=== PATIENT | male | born 1955 | race Caucasian/White ===

== ENCOUNTER → 2017-11-12 12:37 | Outpatient (CLI) | payer MEDICARE, BC, SELFPAY ==
--- NOTE | 2017-11-12 12:50 | XR_ITS ---
XR chest 2V HISTORY: ITS.REASON: CHEST WALL PAIN ORDERING PHYSICIAN: Josefa Callaway PATIENT AGE: 62 years FINDINGS: The cardiomediastinal silhouette and pulmonary vascularity are within normal limits. There is a calcified granuloma in the right midlung. Just superior to this is a 10 mm noncalcified nodule. There are no previous studies available to determine at this is stable. 14 mm nodular opacity is present in the left infrahilar region. No lobar consolidation or collapse. No acute bony anomalies. Bridging osteophytes in the midthoracic spine. IMPRESSION: 1. No acute finding. 2. Right midlung and left infrahilar nodular densities. No previous exams for comparison to determine these are new or stable. Follow-up is recommended. Chest CT may be of further evaluation for the pulmonary nodules.
--- NOTE | 2017-11-12 12:50 | XR_ITS ---
XR ribs LT 2V HISTORY: ITS.REASON: CHEST WALL PAIN ORDERING PHYSICIAN: Josefa Callaway PATIENT AGE: 62 years FINDINGS: No fracture or dislocation. No lytic or blastic change. IMPRESSION: Negative left ribs
== END ==
PROVIDERS: PCP Family Medicine; Visit Provider Nurse Practitioner Family
DX: R07.89 Other chest pain (principal)
CPT/HCPCS: 71046; 71100

== ENCOUNTER → 2017-11-22 12:56 | Outpatient (CLI) | payer MEDICARE, BC, SELFPAY ==
[2017-11-22 14:46] LABS: Blood Urea Nitrogen 14 mg/dL (7-18); Estimated Glomerular Filt Rate 68 ml/min (>60); GFR (African American) 82 ML/MIN (>60)
== END ==
PROVIDERS: Visit Provider Nurse Practitioner Family
DX: R19.8 Other specified symptoms and signs involving the digestive system and abdomen (principal)
CPT/HCPCS: 36415; 82565; 84520

== ENCOUNTER → 2017-11-23 09:40 | Outpatient (CLI) | payer MEDICARE, BC, SELFPAY ==
--- NOTE | 2017-11-23 09:48 | CT_ITS ---
CT chest wo con Ordering Physician: Stu Mcnamara MD Patient Age: 62 years: Male HISTORY: ITS.REASON: LUNG NODULES TECHNIQUE: Helical CT scanning performed through the abdomen and pelvis with no oral nor IV contrast. Sagittal coronal and axial reconstructions on CT workstation. There is reduction technique utilizing routine CT software exposure control. COMPARISON : Chest film 2 view 11/12/2017 FINDINGS No suspicious or worrisome appearing lung mass or nodule. RIGHT LUNG. Most evident is the prominent nearly 8 mm mm densely calcified granuloma at right upper lobe just superior to the minor fissure. . Just lateral to this calcified granuloma on axial image 44 tiny there is some minimal stippled density including a 3.6 mm vaguely evident nodular density. By far most likely benign feature and suspect may reflect associated developing granulomatous disease nodule but has not calcified Also note linear density extending lateral from calcified granuloma on axial image 43. This may reflect an area of scarring or a slightly generous pulmonary vessel in this region. This appears to be nonspecific benign features but but may benefit from a follow-up CT chest 12 months with contrast if desire to confirm stability of the latter minor observations exclude any abnormal vessel here LEFT LUNG. Small less than 4 mm calcified granuloma posterior LLL axial slice 56. Tiny 5 mm low-density area seen anterior to the left anthony on axial slice 37 however appears to be merely a linear area of scarring on coronal image 49, sagittal 64. Neck and not of concern. No infrahilar mass evident.- I suspect density questioned on plain film is related to vessels at left infrahilar region.. MEDIASTINUM. No significant mediastinal mass or adenopathy. A row of small Calcified nodes right pretracheal region reflects old granulomatous is disease. Largest single node 12 mm x 8 mm with stippled calcifications here reflects old benign granulomatous disease Small calcified right hilar nodes reflecting the same Heart normal size with no pericardial effusion. A few tiny nodes AP window and significant but no supraclavicular adenopathy nor axillary adenopathy of significance. BONE At the anterior fifth rib there 2 sclerotic foci .. These measure 11 mm & 9 mm . These small sclerotic focus and follow the medial cortex.. (Suspect one of these scattered for the density seen on recent lateral CXR) There is also a small less than 5 mm sclerotic focus at the anterior second rib. These sclerotic osseous foci may reflect scattered bone islands but could also benefit from a follow-up... Also small 5 mm area sclerotic focus the neck of the glenoid & Small 6 mm nonspecific sclerotic focus beneath superior endplate T9 vertebra noted Otherwise spine demonstrates prominent thick marginal osteophytes is seen throughout the mid T-spine to the lumbar spine. Vertebral bodies appear intact. . IMPRESSION 1. No suspicious or worrisome mass or lung nodule. 2. Benign-appearing lung densities bilaterally: .... Most notable 8 mm densely calcified benign granuloma right midlung. ... Tiny nonspecific 3.6 nodule just lateral to this likely reflect developing granulomatous nodule features as well .... Minimal linear density just lateral to calcified granuloma also noted likely scarring or generous vessel These latter features are most certainly benign, but might considera follow-up CT chest with contrast one year if desire to fully confirm stable of the smaller noncalcified densities 3.. Scattered small sclerotic foci .-More Likely scattered small benign bone islands, but noted *
--- NOTE | 2017-11-23 09:48 | CT_ITS ---
CT abdomen wo con Ordering Physician: Stu Mcnamara MD Patient Age: 62 years: Male HISTORY: ITS.REASON: ABDOMINAL FULLNESS TECHNIQUE: Helical CT scanning performed the abdomen only. With no IV contrast utilized. Oral enteric Redicat contrast was given. Sagittal, axial, coronal reconstructions on CT workstation. As with all CTs from this facility dose reduction techniques utilized including dramatic exposure control COMPARISON :CT chest from today. Right upper quadrant ultrasound from 2012 FINDINGS Lung bases. No active disease See CT chest report. Dense Calcified granuloma towards right lung midlung again noted measuring 7 x 8 mm mm diameter. Associated linear density and stippled density just lateral to it again noted. Abdomen/: of oral contrast present but decreased density with lack of IV contrast. Liver appears satisfactory with mild diffuse fatty change. Gallbladder. Unremarkable with no No definitive calcified gallstones Spleen. Unremarkable and Normal size Adrenals unremarkable. Pancreas unremarkable. No adenopathy. Aorta normal caliber Kidneys. No urinary tract calculi nor obstruction. The portions of visualized bowel show normal appearance of small bowel. Moderate stool seen throughout the visualized colon with no bowel dilatation or obstruction. Again the appendix lower pelvis are not seen. Regarding abdominal for sensation I would only note prominent intra-abdominal adipose throughout abdomen whichconceivably could contribute to the abdominal fullness sensation. No mass nor lesions evident here on the visualized portions of abdomen . A would note that only CT abdomen requested thus the scanning ends at the iliac crest at very uppermost pelvis. Last image is just below the umbilicus. The pelvis was not included. Not imaged. I would note the patient has exuberant facet hypertrophy at L4/5 L5/S1 yielding spinal stenosis or at L4/5. A less pronounced with generous facet hypertrophy elsewhere throughout the L-spine. Also the generous marginal osteophytes throughout the lower T-spine at the upper L-spine again noted. IMPRESSION No acute findings abdomen . No focal pathology at abdomen Mild diffuse fatty changes of liver noted. . Generous intra-abdominal adipose noted
== END ==
PROVIDERS: PCP Family Medicine; Visit Provider Family Medicine
DX: R91.8 Other nonspecific abnormal finding of lung field (principal); R19.8 Other specified symptoms and signs involving the digestive system and abdomen
CPT/HCPCS: 71250; 74150

== ENCOUNTER → 2020-04-01 10:36 | Outpatient (CLI) | payer MEDICARE, BC, SELFPAY ==
--- NOTE | 2020-04-01 10:44 | XR_ITS ---
PROCEDURE: XR FOOT WT BEARING RT 3V CLINICAL INDICATION: diabetic foot ulcer COMPARISON: No exams were available for comparison FINDINGS: Hallux valgus with osteoarthritis at the 1st MTP joint and the 2nd MTP joint. There is mild widening of the base of the proximal phalanx of the 2nd digit with some flattening of the head of the 2nd metatarsal. No fracture or dislocation. Bony hypertrophic changes are present dorsally at the talonavicular and navicular cuneiform joint. Bony hypertrophy also noted at the head of the 1st metatarsal. Calcaneal spurs present. IMPRESSION: Degenerative changes as described above with hallux valgus. There may have been prior trauma at the 2nd metatarsophalangeal joint with osteoarthritic changes at that region as well Dictated by: Miko Mak MD 04/01/2020 16:36 Miko Mak MD in [facility] 04/01/2020 16:36
[2020-04-01 10:58] LABS: Basophils % 0.4 % (0.1-2.0); Eosinophils # 0.1 K/mm3 (0.0-0.4); Eosinophils % 2.4 % (0.1-12.0); Hematocrit 42.6 % (42.0-52.0); Hemoglobin 14.2 g/dL (14.1-18.0); Lymphocytes # 1.5 K/mm3 (0.7-4.5); Lymphocytes % 25.7 % (10-50); Mean Corpuscular HGB Conc 33.4 g/dL (31.8-35.4); Mean Corpuscular Hemoglobin 33.6 pg (27.0-31.2); Mean Corpuscular Volume 100.8 fl (80-94); Mean Platelet Volume 9.1 fl (7.4-10.4); Monocytes # 0.5 K/mm3 (0.1-1.0); Monocytes % 8.5 % (1.7-9.3); Neutrophils # 3.7 K/mm3 (1.8-7.8); Platelet Count 128 K/mm3 (142-424); Red Blood Count 4.23 M/mm3 (4.60-6.20); Red Cell Distribution Width 12.8 % (11.5-17.5); White Blood Count 5.9 K/mm3 (4.8-10.8)
[2020-04-01 11:39] LABS: Erythrocyte Sedimentation Rate 58 mm/hr (0-20)
[2020-04-01 11:58] LABS: Alanine Aminotransferase 68 U/L (12-78); Albumin/Globulin Ratio 1.3 (1.1-1.8); Alkaline Phosphatase 157 U/L (38-126); Anion Gap 15.7 mEq/L (5-15); Aspartate Amino Transferase 62 U/L (17-59); Bilirubin,Total 0.7 mg/dl (0.2-1.3); Blood Urea Nitrogen 28 mg/dl (9-20); Calcium 10.8 mg/dl (8.4-10.2); Carbon Dioxide 29 mmol/L (22.0-30.0); Chloride 94 mmol/L (98-107); Estimated Glomerular Filt Rate 56 ml/min (>60); GFR (African American) 67 ML/MIN (>60); Globulin 3.2 g/dL (1.3-3.2); Glucose 368 mg/dl (74-100); Potassium 4.7 mmoL/L (3.5-5.1); Sodium 134 mmol/L (136-145); Total Protein,Serum 7.2 g/dl (6.3-8.2)
[2020-04-01 12:03] LABS: C-Reactive Protein 28.7 mg/L (0-4)
== END ==
PROVIDERS: Visit Provider Nurse Practitioner
DX: E11.621 Type 2 diabetes mellitus with foot ulcer (principal); L97.519 Non-pressure chronic ulcer of other part of right foot with unspecified severity; Z51.89 Encounter for other specified aftercare; L97.509 Non-pressure chronic ulcer of other part of unspecified foot with unspecified severity; L97.511 Non-pressure chronic ulcer of other part of right foot limited to breakdown of skin; Z79.4 Long term (current) use of insulin
CPT/HCPCS: 36415; 73630; 80053; 85025; 85651; 86140; 87070; 87077; 87205

== ENCOUNTER → 2020-04-13 15:27 | Outpatient (CLI) | payer MEDICARE, BC, SELFPAY ==
[2020-04-13 15:45] LABS: Basophils % 0.6 % (0.1-2.0); Eosinophils # 0.2 K/mm3 (0.0-0.4); Eosinophils % 3.1 % (0.1-12.0); Hemoglobin 13.5 g/dL (14.1-18.0); Lymphocytes # 2.2 K/mm3 (0.7-4.5); Lymphocytes % 36.8 % (10-50); Mean Corpuscular HGB Conc 33.9 g/dL (31.8-35.4); Mean Corpuscular Hemoglobin 34.1 pg (27.0-31.2); Mean Corpuscular Volume 100.7 fl (80-94); Mean Platelet Volume 8.5 fl (7.4-10.4); Monocytes # 0.5 K/mm3 (0.1-1.0); Monocytes % 8.6 % (1.7-9.3); Neutrophils % 50.8 % (37.0-80.0); Platelet Count 234 K/mm3 (142-424); Red Blood Count 3.97 M/mm3 (4.60-6.20); White Blood Count 5.9 K/mm3 (4.8-10.8)
[2020-04-13 16:18] LABS: Erythrocyte Sedimentation Rate 49 mm/hr (0-20)
[2020-04-13 16:22] LABS: Alanine Aminotransferase 54 U/L (12-78); Albumin Level 4.1 g/dl (3.5-5.0); Albumin/Globulin Ratio 1.4 (1.1-1.8); Alkaline Phosphatase 138 U/L (38-126); Anion Gap 14.5 mEq/L (5-15); Aspartate Amino Transferase 68 U/L (17-59); Bilirubin,Total 0.5 mg/dl (0.2-1.3); Blood Urea Nitrogen 20 mg/dl (9-20); Calcium 10.4 mg/dl (8.4-10.2); Carbon Dioxide 29 mmol/L (22.0-30.0); Chloride 99 mmol/L (98-107); Estimated Glomerular Filt Rate 67 ml/min (>60); GFR (African American) 82 ML/MIN (>60); Glucose 168 mg/dl (74-100); Potassium 4.5 mmoL/L (3.5-5.1); Sodium 138 mmol/L (136-145); Total Protein,Serum 7.1 g/dl (6.3-8.2)
[2020-04-13 16:27] LABS: C-Reactive Protein 2.5 mg/L (0-4)
== END ==
PROVIDERS: Visit Provider Nurse Practitioner
DX: E08.621 Diabetes mellitus due to underlying condition with foot ulcer (principal); Z79.4 Long term (current) use of insulin
CPT/HCPCS: 36415; 80053; 85025; 85651; 86140

== ENCOUNTER → 2020-05-11 12:51 | Outpatient (CLI) | payer MEDICARE, BC, SELFPAY ==
[2020-05-11 13:26] LABS: Basophils # 0.1 K/mm3 (0-0.2); Basophils % 0.8 % (0.1-2.0); Eosinophils # 0.2 K/mm3 (0.0-0.4); Eosinophils % 2.4 % (0.1-12.0); Hematocrit 43.3 % (42.0-52.0); Hemoglobin 13.6 g/dL (14.1-18.0); Lymphocytes % 27.9 % (10-50); Mean Corpuscular HGB Conc 31.4 g/dL (31.8-35.4); Mean Corpuscular Hemoglobin 32.6 pg (27.0-31.2); Mean Corpuscular Volume 103.9 fl (80-94); Mean Platelet Volume 8.4 fl (7.4-10.4); Monocytes # 0.6 K/mm3 (0.1-1.0); Monocytes % 7.8 % (1.7-9.3); Neutrophils # 4.3 K/mm3 (1.8-7.8); Platelet Count 208 K/mm3 (142-424); Red Blood Count 4.16 M/mm3 (4.60-6.20); Red Cell Distribution Width 12.6 % (11.5-17.5); White Blood Count 7.1 K/mm3 (4.8-10.8)
[2020-05-11 14:14] LABS: Chloride 101 mmol/L (98-107); Potassium 4.7 mmoL/L (3.5-5.1); Sodium 137 mmol/L (136-145)
[2020-05-11 14:17] LABS: Alanine Aminotransferase 50 U/L (12-78); Albumin Level 4.5 g/dl (3.5-5.0); Albumin/Globulin Ratio 1.5 (1.1-1.8); Alkaline Phosphatase 98 U/L (38-126); Anion Gap 11.7 mEq/L (5-15); Aspartate Amino Transferase 51 U/L (17-59); Bilirubin,Total 0.5 mg/dl (0.2-1.3); Blood Urea Nitrogen 22 mg/dl (9-20); Carbon Dioxide 29 mmol/L (22.0-30.0); Estimated Glomerular Filt Rate 61 ml/min (>60); GFR (African American) 74 ML/MIN (>60); Globulin 3.1 g/dL (1.3-3.2); Glucose 158 mg/dl (74-100); Total Protein,Serum 7.6 g/dl (6.3-8.2)
[2020-05-11 14:23] LABS: C-Reactive Protein 2.4 mg/L (0-4)
[2020-05-11 16:06] LABS: Erythrocyte Sedimentation Rate 34 mm/hr (0-20)
== END ==
PROVIDERS: Visit Provider Nurse Practitioner
DX: E08.621 Diabetes mellitus due to underlying condition with foot ulcer (principal); L97.511 Non-pressure chronic ulcer of other part of right foot limited to breakdown of skin; Z79.4 Long term (current) use of insulin
CPT/HCPCS: 36415; 80053; 85025; 85651; 86140

== ENCOUNTER → 2020-05-27 09:55 | Outpatient (CLI) | payer MEDICARE, BC, SELFPAY ==
[2020-05-27 10:32] LABS: Basophils % 0.5 % (0.1-2.0); Eosinophils # 0.2 K/mm3 (0.0-0.4); Eosinophils % 2.7 % (0.1-12.0); Hematocrit 41.9 % (42.0-52.0); Hemoglobin 14.3 g/dL (14.1-18.0); Lymphocytes # 2.1 K/mm3 (0.7-4.5); Lymphocytes % 30.8 % (10-50); Mean Corpuscular HGB Conc 34.1 g/dL (31.8-35.4); Mean Corpuscular Volume 99.6 fl (80-94); Mean Platelet Volume 8.2 fl (7.4-10.4); Monocytes # 0.5 K/mm3 (0.1-1.0); Monocytes % 6.8 % (1.7-9.3); Neutrophils % 59.2 % (37.0-80.0); Platelet Count 184 K/mm3 (142-424); Red Cell Distribution Width 12.6 % (11.5-17.5); White Blood Count 6.8 K/mm3 (4.8-10.8)
[2020-05-27 11:15] LABS: Chloride 101 mmol/L (98-107); Erythrocyte Sedimentation Rate 28 mm/hr (0-20); Sodium 139 mmol/L (136-145)
[2020-05-27 11:16] LABS: Potassium 4.4 mmoL/L (3.5-5.1)
[2020-05-27 11:18] LABS: Alanine Aminotransferase 51 U/L (12-78); Albumin Level 4.4 g/dl (3.5-5.0); Albumin/Globulin Ratio 1.4 (1.1-1.8); Alkaline Phosphatase 91 U/L (38-126); Anion Gap 13.4 mEq/L (5-15); Aspartate Amino Transferase 51 U/L (17-59); Bilirubin,Total 0.4 mg/dl (0.2-1.3); Blood Urea Nitrogen 18 mg/dl (9-20); Carbon Dioxide 29 mmol/L (22.0-30.0); Estimated Glomerular Filt Rate 67 ml/min (>60); GFR (African American) 82 ML/MIN (>60); Globulin 3.2 g/dL (1.3-3.2); Total Protein,Serum 7.6 g/dl (6.3-8.2)
[2020-05-27 11:19] LABS: Calcium 10.9 mg/dl (8.4-10.2); Glucose 104 mg/dl (74-100)
[2020-05-27 11:25] LABS: C-Reactive Protein 1.9 mg/L (0-4)
== END ==
PROVIDERS: Visit Provider Nurse Practitioner
DX: Z51.89 Encounter for other specified aftercare (principal); R20.8 Other disturbances of skin sensation; E08.621 Diabetes mellitus due to underlying condition with foot ulcer
CPT/HCPCS: 36415; 80053; 85025; 85651; 86140; 87070; 87077; 87186; 87205

== ENCOUNTER → 2020-07-27 11:22 | Outpatient (CLI) | payer MEDICARE, BC, SELFPAY ==
--- NOTE | 2020-07-27 11:45 | XR_ITS ---
PROCEDURE: XR FOOT WT BEARING RT 3V CLINICAL INDICATION: non healing diabetic ulcer of the right foot. COMPARISON: No exams were available for comparison FINDINGS: No fracture or dislocation. No lytic or blastic change. There is normal mineralization. Valgus mild narrowing of the MP joint great toe. There is a semiopaque dressing surrounding the joint. There is mild soft tissue prominence consistent with a bunion. There is mild narrowing and some sclerosis MP joint 2nd toe. There is a probable erosion of the head of the 2nd metatarsal. There is no periosteal reaction seen. There are moderate spurs of the calcaneus at the insertion of Achilles tendon and plantar tendon. Other findings:None. IMPRESSION: Mild to moderate hallux valgus with bunion, probable erosion head of 2nd metatarsal and in view of the history possible focal osteomyelitis must be considered in suggest a follow-up three-phase bone scan if clinically indicated Dictated by: Dr. Iban Serra MD 07/28/2020 10:00 Dr. Iban Serra MD in [place] 07/28/2020 10:00
[2020-07-27 18:29] LABS: Basophils # 0.1 K/mm3 (0-0.2); Basophils % 0.8 % (0.1-2.0); Eosinophils # 0.2 K/mm3 (0.0-0.4); Eosinophils % 2.4 % (0.1-12.0); Hematocrit 45.1 % (42.0-52.0); Hemoglobin 14.9 g/dL (14.1-18.0); Lymphocytes # 2.1 K/mm3 (0.7-4.5); Lymphocytes % 28.8 % (10-50); Mean Corpuscular HGB Conc 33.1 g/dL (31.8-35.4); Mean Corpuscular Hemoglobin 33.8 pg (27.0-31.2); Mean Corpuscular Volume 102.3 fl (80-94); Mean Platelet Volume 9.7 fl (7.4-10.4); Monocytes # 0.5 K/mm3 (0.1-1.0); Monocytes % 6.5 % (1.7-9.3); Neutrophils # 4.4 K/mm3 (1.8-7.8); Neutrophils % 61.6 % (37.0-80.0); Platelet Count 195 K/mm3 (142-424); Red Blood Count 4.41 M/mm3 (4.60-6.20); Red Cell Distribution Width 13.4 % (11.5-17.5); White Blood Count 7.1 K/mm3 (4.8-10.8)
[2020-07-27 19:10] LABS: Alanine Aminotransferase 52 U/L (12-78); Albumin Level 4.6 g/dl (3.5-5.0); Albumin/Globulin Ratio 1.4 (1.1-1.8); Alkaline Phosphatase 114 U/L (38-126); Anion Gap 14.5 mEq/L (5-15); Aspartate Amino Transferase 51 U/L (17-59); Bilirubin,Total 0.5 mg/dl (0.2-1.3); Blood Urea Nitrogen 20 mg/dl (9-20); Carbon Dioxide 30 mmol/L (22.0-30.0); Chloride 97 mmol/L (98-107); Estimated Glomerular Filt Rate 61 ml/min (>60); GFR (African American) 74 ML/MIN (>60); Globulin 3.3 g/dL (1.3-3.2); Glucose 153 mg/dl (74-100); Potassium 4.5 mmoL/L (3.5-5.1); Sodium 137 mmol/L (136-145); Total Protein,Serum 7.9 g/dl (6.3-8.2)
== END ==
PROVIDERS: PCP Physician Assistant; Visit Provider Nurse Practitioner
DX: E08.621 Diabetes mellitus due to underlying condition with foot ulcer (principal); L97.511 Non-pressure chronic ulcer of other part of right foot limited to breakdown of skin; Z79.4 Long term (current) use of insulin
CPT/HCPCS: 36415; 73630; 80053; 85025; 86140; 87070; 87077; 87186; 87205

== ENCOUNTER → 2020-07-29 10:12 | Outpatient (CLI) | payer MEDICARE, BC, SELFPAY ==
[2020-07-29 12:59] LABS: Erythrocyte Sedimentation Rate 23 mm/hr (0-20)
== END ==
PROVIDERS: Visit Provider Nurse Practitioner
DX: E08.621 Diabetes mellitus due to underlying condition with foot ulcer (principal); L97.511 Non-pressure chronic ulcer of other part of right foot limited to breakdown of skin
CPT/HCPCS: 85651

== ENCOUNTER → 2020-08-02 10:30 | Outpatient (CLI) | payer MEDICARE, BC, SELFPAY ==
[2020-08-02 11:00] LABS: Basophils % 0.6 % (0.1-2.0); Eosinophils # 0.2 K/mm3 (0.0-0.4); Eosinophils % 3.6 % (0.1-12.0); Hematocrit 43.3 % (42.0-52.0); Hemoglobin 14.6 g/dL (14.1-18.0); Lymphocytes # 2.1 K/mm3 (0.7-4.5); Lymphocytes % 33.9 % (10-50); Mean Corpuscular HGB Conc 33.7 g/dL (31.8-35.4); Mean Corpuscular Hemoglobin 33.8 pg (27.0-31.2); Mean Corpuscular Volume 100.3 fl (80-94); Mean Platelet Volume 8.3 fl (7.4-10.4); Monocytes # 0.4 K/mm3 (0.1-1.0); Monocytes % 6.6 % (1.7-9.3); Neutrophils # 3.3 K/mm3 (1.8-7.8); Neutrophils % 55.2 % (37.0-80.0); Platelet Count 201 K/mm3 (142-424); Red Blood Count 4.32 M/mm3 (4.60-6.20); Red Cell Distribution Width 12.8 % (11.5-17.5); White Blood Count 6.1 K/mm3 (4.8-10.8)
[2020-08-02 11:44] LABS: Alanine Aminotransferase 49 U/L (12-78); Albumin Level 4.6 g/dl (3.5-5.0); Albumin/Globulin Ratio 1.4 (1.1-1.8); Alkaline Phosphatase 108 U/L (38-126); Anion Gap 13.7 mEq/L (5-15); Aspartate Amino Transferase 47 U/L (17-59); Bilirubin,Total 0.6 mg/dl (0.2-1.3); Blood Urea Nitrogen 24 mg/dl (9-20); Calcium 10.8 mg/dl (8.4-10.2); Carbon Dioxide 28 mmol/L (22.0-30.0); Chloride 100 mmol/L (98-107); Estimated Glomerular Filt Rate 51 ml/min (>60); GFR (African American) 62 ML/MIN (>60); Globulin 3.3 g/dL (1.3-3.2); Glucose 142 mg/dl (74-100); Potassium 4.7 mmoL/L (3.5-5.1); Sodium 137 mmol/L (136-145); Total Protein,Serum 7.9 g/dl (6.3-8.2)
[2020-08-02 11:50] LABS: C-Reactive Protein 1.8 mg/L (0-4)
[2020-08-02 11:51] LABS: Erythrocyte Sedimentation Rate 27 mm/hr (0-20)
== END ==
PROVIDERS: Visit Provider Nurse Practitioner
DX: R20.8 Other disturbances of skin sensation (principal); E08.621 Diabetes mellitus due to underlying condition with foot ulcer; L97.511 Non-pressure chronic ulcer of other part of right foot limited to breakdown of skin; Z79.4 Long term (current) use of insulin
CPT/HCPCS: 36415; 80053; 85025; 85651; 86140

== ENCOUNTER → 2020-08-23 10:41 | Outpatient (CLI) | payer MEDICARE, BC, SELFPAY ==
[2020-08-23 11:49] LABS: Blood Urea Nitrogen 16 mg/dl (9-20); Estimated Glomerular Filt Rate 75 ml/min (>60); GFR (African American) 91 ML/MIN (>60)
== END ==
PROVIDERS: Visit Provider Nurse Practitioner
DX: Z01.818 Encounter for other preprocedural examination (principal)
CPT/HCPCS: 36415; 82565; 84520

== ENCOUNTER → 2020-08-25 09:26 | Outpatient (CLI) | payer MEDICARE, BC, SELFPAY ==
--- NOTE | 2020-08-25 09:34 | MR_ITS ---
PROCEDURE: MR FOOT RT WO/W CON CLINICAL INDICATION: non healing ulcer - hallux pt is diabetic. Has non healing ulcer on lateral aspect of hallux [id number]. 25ml prohance given. 17ml lot:[id number] exp: aug 2022 8ml lot:[id number] exp: dec 2021 bun:16 cre:1.0 gfr:75 Prior x-ray 07-27-20 COMPARISON: DX XR FOOT WT BEARING RT 3V from 04/01/2020 CR XR FOOT WT BEARING RT 3V from 07/27/2020 TECHNIQUE: Routine multiplanar multi echo sequences are performed without and with gadolinium enhancement. FINDINGS: There is moderate hallux valgus with osteoarthritis at the 1st MTP joint. Small amount of fluid is present in the 1st MTP joint. Osteoarthritic changes are also present at the 2nd MTP joint with prominent bony hypertrophy with subchondral cystic change. There is some increased T2 signal within the head of the 2nd metatarsal however, this is felt to be related to subchondral cystic change. There is no enhancement of the surrounding soft tissues. There may be some minimal enhancement of the articular surface of the distal aspect of the 2nd metatarsal. The T2 signal increase in this region is felt to be due to subchondral cystic changes as opposed to bone marrow edema. No abscess. No overlying cellulitis. It is reported on previous radiograph that the area of clinical concern is at the distal aspect of the 1st metatarsal. This area does not show any abnormal bone marrow signal intensity or enhancement that would indicate osteomyelitis. No abscess is evident. IMPRESSION: Hallux valgus with osteoarthritis of the 1st MTP joint. No evidence of osteomyelitis at this area. Bunion formation noted. Severe osteoarthritic changes at the 2nd metatarsophalangeal joint with subchondral cystic changes. No convincing evidence of osteomyelitis. Dictated by: Miko Mak MD 08/26/2020 12:19 Miko Mak MD in [facility] 08/26/2020 12:19
== END ==
PROVIDERS: PCP Physician Assistant; Visit Provider Podiatrist
DX: E08.621 Diabetes mellitus due to underlying condition with foot ulcer (principal); L97.511 Non-pressure chronic ulcer of other part of right foot limited to breakdown of skin; Z51.89 Encounter for other specified aftercare; Z79.4 Long term (current) use of insulin
CPT/HCPCS: 73720; A9576

== ENCOUNTER → 2020-08-31 12:08 | Outpatient (CLI) | payer MEDICARE, BC, SELFPAY ==
[2020-08-31 12:30] LABS: Basophils # 0.1 K/mm3 (0-0.2); Basophils % 0.7 % (0.1-2.0); Eosinophils # 0.1 K/mm3 (0.0-0.4); Eosinophils % 1.4 % (0.1-12.0); Hematocrit 45.8 % (42.0-52.0); Hemoglobin 15.2 g/dL (14.1-18.0); Lymphocytes # 2.3 K/mm3 (0.7-4.5); Lymphocytes % 30.6 % (10-50); Mean Corpuscular HGB Conc 33.2 g/dL (31.8-35.4); Mean Corpuscular Hemoglobin 33.6 pg (27.0-31.2); Mean Corpuscular Volume 101.3 fl (80-94); Mean Platelet Volume 8.4 fl (7.4-10.4); Monocytes # 0.5 K/mm3 (0.1-1.0); Monocytes % 7.3 % (1.7-9.3); Neutrophils # 4.5 K/mm3 (1.8-7.8); Neutrophils % 60.1 % (37.0-80.0); Platelet Count 189 K/mm3 (142-424); Red Blood Count 4.53 M/mm3 (4.60-6.20); Red Cell Distribution Width 13.2 % (11.5-17.5); White Blood Count 7.4 K/mm3 (4.8-10.8)
[2020-08-31 12:56] LABS: Alanine Aminotransferase 60 U/L (12-78); Albumin Level 4.9 g/dl (3.5-5.0); Albumin/Globulin Ratio 1.5 (1.1-1.8); Alkaline Phosphatase 138 U/L (38-126); Anion Gap 11.8 mEq/L (5-15); Aspartate Amino Transferase 54 U/L (17-59); Bilirubin,Total 0.3 mg/dl (0.2-1.3); Blood Urea Nitrogen 27 mg/dl (9-20); Carbon Dioxide 31 mmol/L (22.0-30.0); Chloride 100 mmol/L (98-107); Estimated Glomerular Filt Rate 47 ml/min (>60); GFR (African American) 57 ML/MIN (>60); Globulin 3.2 g/dL (1.3-3.2); Glucose 214 mg/dl (74-100); Potassium 4.8 mmoL/L (3.5-5.1); Sodium 138 mmol/L (136-145); Total Protein,Serum 8.1 g/dl (6.3-8.2)
[2020-08-31 13:05] LABS: C-Reactive Protein 2.4 mg/L (0-4)
[2020-08-31 14:28] LABS: Erythrocyte Sedimentation Rate 23 mm/hr (0-20)
== END ==
PROVIDERS: Visit Provider Nurse Practitioner
DX: E08.621 Diabetes mellitus due to underlying condition with foot ulcer (principal); L97.511 Non-pressure chronic ulcer of other part of right foot limited to breakdown of skin; Z79.4 Long term (current) use of insulin
CPT/HCPCS: 36415; 80053; 85025; 85651; 86140

== ENCOUNTER → 2020-09-21 17:27 | Outpatient (CLI) | payer MEDICARE, BC, SELFPAY | PROVIDERS: Visit Provider Nurse Practitioner | DX: E08.621 Diabetes mellitus due to underlying condition with foot ulcer (principal) | CPT/HCPCS: 87070; 87077; 87186; 87205 ==

== ENCOUNTER → 2020-10-05 11:19 | Outpatient (CLI) | payer MEDICARE, BC, SELFPAY ==
[2020-10-05 11:48] LABS: Basophils % 0.5 % (0.1-2.0); Eosinophils # 0.2 K/mm3 (0.0-0.4); Eosinophils % 2.1 % (0.1-12.0); Hematocrit 42.4 % (42.0-52.0); Hemoglobin 13.3 g/dL (14.1-18.0); Lymphocytes # 2.1 K/mm3 (0.7-4.5); Lymphocytes % 30.1 % (10-50); Mean Corpuscular HGB Conc 31.3 g/dL (31.8-35.4); Mean Corpuscular Hemoglobin 32.6 pg (27.0-31.2); Mean Corpuscular Volume 104.1 fl (80-94); Mean Platelet Volume 8.8 fl (7.4-10.4); Monocytes # 0.5 K/mm3 (0.1-1.0); Neutrophils # 4.2 K/mm3 (1.8-7.8); Neutrophils % 60.4 % (37.0-80.0); Platelet Count 177 K/mm3 (142-424); Red Blood Count 4.07 M/mm3 (4.60-6.20); Red Cell Distribution Width 12.7 % (11.5-17.5); White Blood Count 6.9 K/mm3 (4.8-10.8)
[2020-10-05 12:12] LABS: Erythrocyte Sedimentation Rate 43 mm/hr (0-20)
[2020-10-05 12:23] LABS: Chloride 102 mmol/L (98-107); Potassium 4.9 mmoL/L (3.5-5.1); Sodium 139 mmol/L (136-145)
[2020-10-05 12:26] LABS: Alanine Aminotransferase 59 U/L (12-78); Albumin Level 4.5 g/dl (3.5-5.0); Albumin/Globulin Ratio 1.5 (1.1-1.8); Alkaline Phosphatase 110 U/L (38-126); Anion Gap 9.9 mEq/L (5-15); Aspartate Amino Transferase 60 U/L (17-59); Bilirubin,Total 0.4 mg/dl (0.2-1.3); Blood Urea Nitrogen 20 mg/dl (9-20); Calcium 10.9 mg/dl (8.4-10.2); Carbon Dioxide 32 mmol/L (22.0-30.0); Estimated Glomerular Filt Rate 55 ml/min (>60); GFR (African American) 67 ML/MIN (>60); Glucose 151 mg/dl (74-100); Total Protein,Serum 7.5 g/dl (6.3-8.2)
[2020-10-05 12:32] LABS: C-Reactive Protein 2.7 mg/L (0-4)
== END ==
PROVIDERS: Visit Provider Nurse Practitioner
DX: R20.8 Other disturbances of skin sensation (principal); Z51.89 Encounter for other specified aftercare
CPT/HCPCS: 36415; 80053; 85025; 85651; 86140

== ENCOUNTER → 2020-10-19 17:49 | Outpatient (CLI) | payer MEDICARE, BC, SELFPAY | PROVIDERS: Visit Provider Podiatrist | DX: E11.621 Type 2 diabetes mellitus with foot ulcer (principal); L97.515 Non-pressure chronic ulcer of other part of right foot with muscle involvement without evidence of necrosis | CPT/HCPCS: 87070; 87077; 87186; 87205 ==

== ENCOUNTER → 2020-10-22 14:41 | Outpatient (CLI) | payer MEDICARE, BC, SELFPAY ==
--- NOTE | 2020-10-22 14:43 | US_ITS ---
APPROVED REPORT Exam Type: Ankle to Brachial Index Cna Pct: RT Benji(R) Indications Claudication: Bilaterally Rest Pain: Bilaterally ulcer on right great toe medial aspect. Risk Factors Hypertension Hyperlipidemia Diabetes Pressures/Indices Right Indices Left Indices Brachial 195.00 mmHg Brachial 189.00 mmHg Low Thigh 209.00 mmHg 1.07 Low Thigh 203.00 mmHg 1.04 Calf 208.00 mmHg 1.07 Calf 211.00 mmHg 1.08 Ankle(PT) 203.00 mmHg 1.04 Ankle(PT) 214.00 mmHg 1.10 Ankle(DP) 210.00 mmHg 1.08 Ankle(DP) 222.00 mmHg 1.14 Digit 242.00 mmHg 1.24 Digit 192.00 mmHg 0.98 Findings RT GABBI=1.08 LT GABBI=1.14 RT TBI=1.24 LT TBI=0.98 Normal waveforms Normal pulses Conclusion RT GABBI=1.08 LT GABBI=1.14 RT TBI=1.24 LT TBI=0.98 Normal waveforms Normal pulses Normal appearing resting noninvasive lower extremity arterial study. Electronically signed by : Miko Mak MD 10/22/2020 16:17:59
== END ==
PROVIDERS: PCP Physician Assistant; Visit Provider Podiatrist
DX: I70.223 Atherosclerosis of native arteries of extremities with rest pain, bilateral legs (principal); L98.493 Non-pressure chronic ulcer of skin of other sites with necrosis of muscle; R09.89 Other specified symptoms and signs involving the circulatory and respiratory systems
CPT/HCPCS: 93923

== ENCOUNTER → 2020-11-30 12:59 | Outpatient (CLI) | payer MEDICARE, SELFPAY ==
--- NOTE | 2020-11-30 13:06 | XR_ITS ---
PROCEDURE: XR FOOT WT BEARING RT 3V CLINICAL INDICATION: diabetic ulcer of right great toe COMPARISON: DX XR FOOT WT BEARING RT 3V from 04/01/2020 CR XR FOOT WT BEARING RT 3V from 07/27/2020 FINDINGS: There are osteoarthritic changes at the 1st MTP joint with hallux valgus and bunion formation. Lucent changes are also present at the distal aspect of the 2nd metatarsal not significantly change with osteoarthritis also at the 2nd MTP joint. There is some spurring of the distal aspect of the 1st metatarsal. Bony hypertrophy is present at the anterior and proximal aspect of the navicular. There is also osteophytes at the anterior distal tibia and also at the talar neck. Small calcaneal spur and Achilles enthesophyte is noted. There is some soft tissue swelling along the medial aspect of the 1st metatarsophalangeal joint. IMPRESSION: Hallux valgus with osteoarthritis at the 1st MTP joint and 2nd MTP joint with stable lucent lesion at the distal aspect of the 2nd metatarsal. Degenerative changes as described above. No bony destructive process evident that would indicate osteomyelitis. Dictated by: Miko Mak MD 11/30/2020 14:55 Miko Mak MD in [place] 11/30/2020 14:55
[2020-11-30 14:36] LABS: Basophils % 0.6 % (0.1-2.0); Eosinophils # 0.2 K/mm3 (0.0-0.4); Eosinophils % 3.3 % (0.1-12.0); Hematocrit 39.4 % (42.0-52.0); Hemoglobin 13.4 g/dL (14.1-18.0); Lymphocytes # 2.1 K/mm3 (0.7-4.5); Lymphocytes % 30.9 % (10-50); Mean Corpuscular Hemoglobin 33.6 pg (27.0-31.2); Mean Corpuscular Volume 98.9 fl (80-94); Mean Platelet Volume 8.6 fl (7.4-10.4); Monocytes # 0.5 K/mm3 (0.1-1.0); Monocytes % 7.4 % (1.7-9.3); Neutrophils # 3.9 K/mm3 (1.8-7.8); Neutrophils % 57.8 % (37.0-80.0); Platelet Count 182 K/mm3 (142-424); Red Blood Count 3.98 M/mm3 (4.60-6.20); Red Cell Distribution Width 12.3 % (11.5-17.5); White Blood Count 6.8 K/mm3 (4.8-10.8)
[2020-11-30 14:55] LABS: 25-OH Vitamin D, Total 39.9 ng/mL (30-100)
[2020-11-30 15:06] LABS: Alanine Aminotransferase 45 U/L (12-78); Aspartate Amino Transferase 48 U/L (17-59); Blood Urea Nitrogen 24 mg/dl (9-20); Estimated Glomerular Filt Rate 61 ml/min (>60); GFR (African American) 74 ML/MIN (>60)
[2020-11-30 15:07] LABS: Albumin Level 4.5 g/dl (3.5-5.0); Albumin/Globulin Ratio 1.6 (1.1-1.8); Alkaline Phosphatase 108 U/L (38-126); Bilirubin,Total 0.5 mg/dl (0.2-1.3); Calcium 10.6 mg/dl (8.4-10.2); Carbon Dioxide 26 mmol/L (22.0-30.0); Globulin 2.9 g/dL (1.3-3.2); Glucose 135 mg/dl (74-100); Total Protein,Serum 7.4 g/dl (6.3-8.2)
[2020-11-30 15:12] LABS: Erythrocyte Sedimentation Rate 70 mm/hr (0-20)
[2020-11-30 15:27] LABS: Anion Gap 13.5 mEq/L (5-15); Chloride 101 mmol/L (98-107); Potassium 4.5 mmoL/L (3.5-5.1); Sodium 136 mmol/L (136-145)
[2020-11-30 16:04] LABS: Hemoglobin A1C 8.3 % (4.0-6.0)
== END ==
PROVIDERS: PCP Physician Assistant; Visit Provider Nurse Practitioner
DX: Z51.89 Encounter for other specified aftercare (principal); R20.8 Other disturbances of skin sensation; E11.621 Type 2 diabetes mellitus with foot ulcer; L98.499 Non-pressure chronic ulcer of skin of other sites with unspecified severity; Z79.4 Long term (current) use of insulin; Z68.36 Body mass index [BMI] 36.0-36.9, adult
CPT/HCPCS: 36415; 73630; 80053; 82306; 83036; 85025; 85651; 86140

== ENCOUNTER → 2020-12-06 10:33 | Outpatient (CLI) | payer MEDICARE, SELFPAY ==
--- NOTE | 2020-12-06 | ECG_ITS ---
APPROVED REPORT Exam: Resting ECG HR:61 bpm ECG Measurements Heart Rate 61 AXES RI 140 P -1 QRSd 78 QRS 20 QT 412 T -17 QTc 414 Conclusion Normal sinus rhythm T wave abnormality, consider inferior ischemia Abnormal ECG Electronically signed by : Earnest Tillman, 12/06/2020 18:13:16
== END ==
PROVIDERS: Visit Provider Podiatrist
DX: Z01.812 Encounter for preprocedural laboratory examination (principal); Z11.52 Encounter for screening for COVID-19
CPT/HCPCS: 93005; U0003

== ENCOUNTER → 2020-12-17 06:27 | Outpatient (CLI) | payer MEDICARE, SELFPAY ==
--- NOTE | 2020-12-17 07:09 | NM_ITS ---
APPROVED REPORT Exam: Nuclear Stress Test Indication: HTN, D.M., HYPERLIPIDEMIA, FM HX, ABN EKG Patient Location: Outpatient Stress Tech: Daisy Monique MT Tech:Kailyn OrtizMELONY RT(R)(N) Ht: 6 ft 0 in Wt: 270 lbs HR: 53 bpm BP: 142/68 mmHg BSA: 2.42 m2 Procedure: Patient received a 0.4 mg of intravenous Lexiscan, resting heart rate 53 bpm, resting blood pressure 142/68 mmHg, with Lexiscan maximum heart rate achived was 74 bpm which is Less than 85 % of the maximum predicted heart rate and blood pressure was 144/62 mmHg. With Lexiscan, patient denied any complaint of chest pain. Electrocardiogram Resting electrocardiogram shows sinus rhythm nonspecific ST-T changes, with Lexiscan there is less than 1.[address] segment depression noted from the baseline EKG. The EKG portion of the Lexiscan is nondiagnostic. Cardiac Stress and Resting SPECT Images: Cardiac Stress and Resting SPECT images were obtained using technetium 99m Myoview 31.8 mCi stress and 10.33 mCi at rest. Gated SPECT for analysis of segmental wall motion and calculation of the ejection fraction also done, prone images were also obtained. Cardiac stress and resting SPECT images show uniform myocardial activity without segmental perfusion abnormality, computer derived ejection fraction is 61% with no regional wall motion abnormality, right ventricle is mildly enlarged with normal contractility. Conclusion: 1. The EKG portion of the Lexiscan is nondiagnostic. 2. No scintigraphic evidence of reversible ischemia seen, computer derived ejection fraction is 61% with no regional wall motion abnormality, right ventricle is mildly enlarged with normal contractility. 3. Likely normal Lexiscan Myoview study. Electronically signed by : Oz Abbasi, 12/17/2020 13:13:36
--- NOTE | 2020-12-17 08:00 | CA_ITS ---
APPROVED REPORT Exam: Pharmacologic Technologist: Daisy Monique, Ht: 6 ft 0 in Wt: 274 lbs BSA: 2.44 m2 HR: 53 bpm BP: 142/62 mmHg Rhythm: NSR Medical History Medical History: HTN, Hyperlipidemia, Diabetes Medications: HCTZ,,,,, Ramipril,,,,, Diclofenac,,,,, OxYCODONE,,,,, LevothROXINE,,,,, Ezetimibe,,,,, SoDIUM,,,,, ONdanESETRAN,,,,, INSULIN GLARGINE,,,,, GlimepRIDE,,,,, Allergies: PCN Cardiac Risk Factors: HTN, Hyperlipidemia, Diabetes, , FHX of CAD Stress Test Details Test: LEXISCAN HR Resting HR: 56 bpm Max Heart Rate (APMHR): 155.988002 bpm Max HR Achieved: 77 bpm Target HR (85% APMHR): 131.306234 bpm % of APMHR: 49.68 Recovery HR: 58 bpm BP Resting BP: 142/68 mmHg Max BP: 144/62 mmHg Recovery BP: 125.0/72.0 mmHg ECG Resting ECG: NSR Clinical Reason for Termination: Completed Protocol Exercise duration: 04:03 min Highest Stage Achieved: Exercise capacity: 1.0 METs Stress ECG Conclusion PT HAD NO CP. NO ARRHYTHMIAS. <1.[address] SEGMENT CHANGE. Test Summary REST 00:51 . . 56 . 142/ 68 . . Stage 1 01:00 . . 72 . . . . Stage 2 01:00 . . 67 . 144/ 62 . . Stage 3 01:00 . . 58 . . . . Stage 4 01:00 . . 58 . 128/ 60 . . Stage 4 01:03 . . 59 . 128/ 60 . Stop exercise at 04:03 RECOVERY 01:00 . . 66 . . . . RECOVERY 02:00 . . 60 . . . . RECOVERY 02:57 . . 57 . 144/ 72 . . Electronically signed by : Oz Abbasi, 12/17/2020 13:09:38
== END ==
PROVIDERS: PCP Physician Assistant; Visit Provider Urology
DX: E11.42 Type 2 diabetes mellitus with diabetic polyneuropathy (principal); E66.9 Obesity, unspecified; I10 Essential (primary) hypertension; R00.1 Bradycardia, unspecified; R94.31 Abnormal electrocardiogram [ECG] [EKG]; Z01.810 Encounter for preprocedural cardiovascular examination; Z79.4 Long term (current) use of insulin; Z68.37 Body mass index [BMI] 37.0-37.9, adult
CPT/HCPCS: 78452; 93017; A9502; J2785

== ENCOUNTER → 2020-12-20 14:13 | Outpatient (CLI) | payer MEDICARE, SELFPAY ==
--- NOTE | 2020-12-20 14:14 | CA_ITS ---
APPROVED REPORT EXAM: Comprehensive 2D, Doppler, and color-flow Echocardiogram Women'S Garment Fitter: LEOPOLDO Leos, RVS Ht: 6 ft 0 in Wt: 274lbs BSA: 2.44 BP: 178/48 mmHg Indications: HTN, Pre-op clearance, DM, Obesity Echo Enhancing Agent Comments: Large body habitus 2D Dimensions IVSd 1.03 cm LVEF (Visual) 30.60 % PWd 1.00 cm LA Volume 61.50 mL LVDd 4.67 cm LA Volume Index 25.20 mL/m2 (M/F) 16-34 LVDs 4.00 cm Left Atrium 3.23 cm LVOT 1.86 cm (M/F) 1.5-2.5 M-Mode Dimensions LA Diam 4.92 cm (1.9-4.0) Ao Diam 3.35 cm (2.0-3.7) EPSs 0.36 cm LV Diastology E Decel Time 237.00 (160-240 msec) E/A Ratio 1.17 MED E' 8.70 (< 7 cm/sec) MED A' 9.70 cm/s E'/MED E' Ratio 9.17 (>14) LAT E' 9.20 (<10 cm/sec) LAT A' 11.30 cm/s E/LAT E' Ratio 8.67 (>14) Aortic Valve LVOT Max 118.00 (70-110 cm/s) LVOT VTI 28.36 cm AoV Peak Adiel. 156.00 (50-130 cm/s) AO Peak GR. 9.80 mmHg AO Mean GR. 5.10 (<5 mmHg) AO VTI 33.10 (18-25 cm) KYRA (VTI) 2.33 (2.5-4.5 cm2) Mitral Valve MV A Velocity 68.00 (40-130 cm/s) E/A Ratio 1.17 MV Decel. Time 237.00 (160-240 ms) Pulmonary Valve PV Peak Velocity 101.00 (50-150 cm/s) Tricuspid Valve TR P. Velocity 170.00 cm/s RAP Estimate 10.00 mmHg RVSP 21.60 mmHg Left Ventricle Left atrium is mildly enlarged, left ventricle is normal size, mild concentric left ventricular hypertrophy, septum is sigmoid configuration, visually estimated ejection fraction 55% with no regional wall motion abnormality, grade 1 diastolic dysfunction seen without tissue Doppler evidence of raise left atrial pressure. Right Ventricle Right atrium and right ventricle are normal size and contractility. Aortic Valve Aortic valve is minimally thickened and fibrosed, there is no aortic stenosis or aortic insufficiency. Mitral Valve Mitral valve grossly normal, there is trace mitral regurgitation. Tricuspid Valve Tricuspid grossly normal, there is trace tricuspid regurgitation. Tricuspid regurgitation jet velocity is inadequate for calculation of the right ventricular systolic pressure. Pulmonic Valve Pulmonic valve is poorly visualized. Great Vessels Aortic root is normal size. Pericardium No significant pericardial effusion noted. Conclusion 1. Mildly enlarged left atrium, normal left ventricular size, mild concentric left ventricular hypertrophy, visually estimated ejection fraction 55% with no regional wall motion abnormality, grade 1 diastolic dysfunction seen without tissue Doppler evidence of raise left atrial pressure. 2. Trace mitral and tricuspid regurgitation. 3. No significant pericardial effusion noted. Electronically signed by : Oz Abbasi, 12/21/2020 05:01:07
== END ==
PROVIDERS: PCP Physician Assistant; Visit Provider Urology
DX: E11.42 Type 2 diabetes mellitus with diabetic polyneuropathy (principal); E66.9 Obesity, unspecified; I10 Essential (primary) hypertension; R00.1 Bradycardia, unspecified; R94.31 Abnormal electrocardiogram [ECG] [EKG]; Z01.810 Encounter for preprocedural cardiovascular examination; Z20.822 Contact with and (suspected) exposure to COVID-19; Z79.4 Long term (current) use of insulin; Z68.36 Body mass index [BMI] 36.0-36.9, adult
CPT/HCPCS: 93306; U0003

== ENCOUNTER → 2021-01-10 08:32 | Outpatient (CLI) | payer MEDICARE, SELFPAY ==
[2021-01-10 09:47] LABS: Basophils % 0.5 % (0.1-2.0); Eosinophils # 0.3 K/mm3 (0.0-0.4); Eosinophils % 3.7 % (0.1-12.0); Hematocrit 40.3 % (42.0-52.0); Hemoglobin 13.8 g/dL (14.1-18.0); Lymphocytes # 2.4 K/mm3 (0.7-4.5); Lymphocytes % 35.2 % (10-50); Mean Corpuscular HGB Conc 34.3 g/dL (31.8-35.4); Mean Corpuscular Hemoglobin 33.2 pg (27.0-31.2); Mean Corpuscular Volume 96.9 fl (80-94); Mean Platelet Volume 8.4 fl (7.4-10.4); Monocytes # 0.5 K/mm3 (0.1-1.0); Monocytes % 6.6 % (1.7-9.3); Neutrophils # 3.6 K/mm3 (1.8-7.8); Platelet Count 192 K/mm3 (142-424); Red Blood Count 4.16 M/mm3 (4.60-6.20); Red Cell Distribution Width 12.6 % (11.5-17.5); White Blood Count 6.8 K/mm3 (4.8-10.8)
[2021-01-10 09:56] LABS: Hemoglobin A1C 7.9 % (4.0-6.0)
[2021-01-10 10:08] LABS: Chloride 102 mmol/L (98-107); Sodium 136 mmol/L (136-145)
[2021-01-10 10:09] LABS: Potassium 5.2 mmoL/L (3.5-5.1)
[2021-01-10 10:11] LABS: Alanine Aminotransferase 44 U/L (12-78); Alkaline Phosphatase 104 U/L (38-126); Anion Gap 12.2 mEq/L (5-15); Aspartate Amino Transferase 45 U/L (17-59); Bilirubin,Total 0.5 mg/dl (0.2-1.3); Blood Urea Nitrogen 30 mg/dl (9-20); Carbon Dioxide 27 mmol/L (22.0-30.0); Cholesterol 164 mg/dl (140-200); Estimated Glomerular Filt Rate 67 ml/min (>60); GFR (African American) 81 ML/MIN (>60); Triglycerides 288 mg/dl (30-150); VLDL Cholesterol 58 mg/dL (0-40)
[2021-01-10 10:12] LABS: Albumin Level 4.6 g/dl (3.5-5.0); Albumin/Globulin Ratio 1.5 (1.1-1.8); Calcium 10.5 mg/dl (8.4-10.2); Chol/HDL Ratio 5.5 (1-3.5); Globulin 3.1 g/dL (1.3-3.2); Glucose 143 mg/dl (74-100); HDL Cholesterol 30 mg/dl (40-60); Total Protein,Serum 7.7 g/dl (6.3-8.2)
[2021-01-10 10:17] LABS: Erythrocyte Sedimentation Rate 50 mm/hr (0-20)
[2021-01-10 10:20] LABS: C-Reactive Protein 1.2 mg/L (0-4)
[2021-01-10 10:24] LABS: Direct LDL Cholesterol 93.25 mg/dL (100-129)
[2021-01-10 10:25] LABS: 25-OH Vitamin D, Total 36.1 ng/mL (30-100)
[2021-01-10 10:30] LABS: Free T4 (Free Thyroxine) 0.52 ng/dl (0.78-2.19)
[2021-01-10 10:44] LABS: Thyroid Stimulating Hormone 3.05 uIU/mL (0.465-4.68)
== END ==
PROVIDERS: Podiatrist; Visit Provider Physician Assistant
DX: Z01.812 Encounter for preprocedural laboratory examination (principal); Z20.822 Contact with and (suspected) exposure to COVID-19; M79.671 Pain in right foot; E11.65 Type 2 diabetes mellitus with hyperglycemia; E03.9 Hypothyroidism, unspecified; E78.2 Mixed hyperlipidemia; E66.9 Obesity, unspecified; Z68.36 Body mass index [BMI] 36.0-36.9, adult
CPT/HCPCS: 36415; 80053; 80061; 82306; 83036; 84439; 84443; 85025; 85651; 86140; U0003

== ENCOUNTER 2021-01-12 08:37 | Day surgery (SDC) | payer MEDICARE, SELFPAY ==
[2021-01-04 14:02] VITALS: BMI 36.6
[2021-01-12] VITALS (10 sets, daily range): BP systolic 127–169; BP diastolic 79–89; PULSE 55–72; RESP 12–18; TEMP 36.1–43; O2SAT 93–98
[2021-01-12 09:34] LABS: POC Glucose,Bedside 147 (70-110)
--- NOTE | 2021-01-12 10:00 | HMH.ANESCL ---
[facility] Anesthesia Checklist - Patient Identification Patient Identification: Arm Band - Structural Data Admitted From: Home Planned Operative Procedure/s: Vizcaino bunionectomy, modified ulcer debridement, bone bx Consent for Planned Operative Procedure(s) Verified: Yes - NPO Status Verified Time NPO: 00:00 - Additional verifications Hx Blood Transfusions: No Blood Transfusion Reaction: No - Airway Assessment C-Spine Mobility Assessed: Yes TMJ Mobility Assessed: Yes Dentition: Good Dentition - Neurological Assessment Level of Consciousness: Awake Hx Seizures: No Numbness or tingling in extremities: No - Anesthesia Plan Anesthesia Risk discussed: Yes Anesthesia Plan: Verified ASA Class: III Anesthesia Type: General [facility] History I have reviewed the patient's past medical history: Yes Medical History: Reports:: Diabetes Mellitus Type 2, Gastroesophageal Reflux Disease(GERD), Hyperlipidemia, Hypertension Denies:: Cancer, Diabetes Mellitus Type 1, Internal Pacemaker, MRSA, Seizures *Have you ever received a pneumonia vaccine?: Yes *Have you received a flu vaccine this season?: No Other Medical History: Reports: Arthritis, Thyroid Disease, Other (ELADIO). Denies: Blood Transfusion Reaction Anesthesia experience/problems:: None Other Surgeries: Yes: No Previous Surgery, Cardiac Catheterization. No: Pacemaker Amputation: No Fractures: No - *Social History Last grade of school completed: Some college Smoking Status: Never smoker Alcohol Intake: current Alcohol Intake Frequency:: a few times a month Substance Use Type: denies use *Occupational Status:: retired Housing: house Household Members: spouse *Travel in the last 8 weeks: None Family Hx:: Diabetes, Hypertension
--- NOTE | 2021-01-12 11:32 | HMH.OPNOTE ---
Date of procedure: 01/12/21 Pre-op Diagnosis:: 1. Right foot diabetic ulcer 2. 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 Right hallux valgus 4. Primary osteoarthritis of right foot 5. Pre-ulcerative calluses 6. Gastrocnemius equinus of right lower extremity 7. Nail dystrophy 8. Right foot pain Post-op Diagnosis:: Same Procedure performed:: 1. Right foot ulcer excision, delayed primary closure 2. Right 1st MPJ cheilectomy 3. Right modified ortiz bunionectomy 4. Right hallux distal phalanx exostectomy 5. Right foot bone biospy 6. Right tendo Achilles lengthening 7. Right application of Graft Jacket 8. Right skin plasty Surgeon:: Setffanie Arreola DPM CHEMICAL PROCESS ENGINEER:: Morales Antony Anesthesia: GETA, regional (Right popliteal block) Estimated blood loss (mL): 15 Clinical Note:: Patient is a 65-year-old diabetic male with a chronic nonhealing right subfirst metatarsal ulceration. Ulcer is secondary to hallux valgus deformity. MRI taken 08/25/2019 one of the right foot with and without contrast, IMPRESSION: Hallux valgus with osteoarthritis of the 1st MTP joint. No evidence of osteomyelitis at this area. Bunion formation noted. Severe osteoarthritic changes at the 2nd metatarsophalangeal joint with subchondral cystic changes. No convincing evidence of osteomyelitis. We discussed conservative versus surgical treatment options. Conservative treatment options include local wound care, oral and IV antibiotics, change in shoe wear, taping/padding, and off-loading. He is wearing a wider and deeper shoe wear to accommodate the deformity. We discussed surgical intervention for removing the bony prominence. We discussed bunion surgery in detail. I explained I do not recommend putting plate and screws in surgery site given the longstanding nonhealing ulcer and chance of of infection. Patient understands that there is a chance that the wound may return, the bunion deformity will still be present just to a lesser degree and the foot may change shape after surgery. Patient also understands that they could have wound healing complications including delayed healing and infection. We discussed that if the wound does not heal, it is possible that they may need a hallux or more proximal amputation and could result in loss of digits, loss of partial foot or loss of leg. We discussed the risks and benefits in great detail. Other surgical risks include: prolonged pain and swelling, further infection requiring oral or IV antibiotics, delay in healing of soft tissue or bone, nerve or blood vessel damage, CRPS/RSD, DVT, anesthesia complications, and even . All questions answered. Patient verbalized understanding. Consent obtained. Pre-op labs: ESR, CRP, Ha1c, CBC, CMP, EKG, CXR, x-rays and ABIs reviewed. PCP-Ángela Joshi. Cardiology clearance given 12/21/20 e-Rx given for Oxycodone 5mg to use prn in addition to chronic pain meds short term only. Take aspirin 81mg after surgery. e-Rx given for Zofran and Bactrim DS. e-Rx Diflucan 100mg daily prn oral thrush. Operative findings:: Right hallux valgus deformity noted. Ulceration noted to the plantar medial aspect of the subfirst metatarsal area. Ulceration was 3.5 x 3 x 0.2 cm. There was no purulence drainage or malodor noted. No deep signs of infection. Thick fibrotic scar tissue noted at the chronic ulceration site. Arthritic changes to the base of the proximal phalanx and the first metatarsal. Sesamoids were also arthritic. Osteophytes and dorsal spurring resected. No obvious signs of osteomyelitis noted. Operative note:: On this date and time the patient was deemed an appropriate surgical candidate and with the consent signed patient was wheeled from preoperative holding area to the operating theater and placed on the table in a normal supine position. Tourniquet applied to the right mid calf 225 mmHg. IV 1g of ertapenem and 1g of vancomycin, held preop and given after biopsies. The right lower extremity was prepped and draped in normal steri
--- NOTE | 2021-01-12 12:42 | XR_ITS ---
PROCEDURE: XR FOOT RT 2V CLINICAL INDICATION: BUNIONECTOMY,MODIFIED ULCER, DEBRIDEMENT, BONE BX COMPARISON: No exams were available for comparison FINDINGS: Views of the right foot obtained operatively with C-arm fluoroscopy show postop changes of bunionectomy of the great toe with some residual degenerative changes of the 1st metatarsal phalangeal joint. No acute fracture or dislocation. Total fluoroscopy time was 7 seconds. IMPRESSION: Postop changes of right great toe bunionectomy with some residual degenerative changes of the 1st metatarsal phalangeal joint. Dictated by: Cortes Ruggiero MD 01/12/2021 14:57 Cortes Ruggiero MD in [facility] 01/12/2021 14:57
--- NOTE | 2021-01-12 13:15 | XR_ITS ---
PROCEDURE: XR FOOT RT MIN 3V CLINICAL INDICATION: Post op bunion COMPARISON: DX XR FOOT WT BEARING RT 3V from 04/01/2020 CR XR FOOT WT BEARING RT 3V from 07/27/2020 CR XR FOOT WT BEARING RT 3V from 11/30/2020 FINDINGS: Postop changes of bunion removal of the great toe with some residual degenerative change of the 1st metatarsal phalangeal joint. Overlying splint material in place. IMPRESSION: Postop changes of bunion removal right great toe with some residual degenerative change of the 1st metatarsal phalangeal joint. Dictated by: Cortes Ruggiero MD 01/12/2021 14:31 Cortes Ruggiero MD in [facility] 01/12/2021 14:31
--- NOTE | 2021-01-12 14:01 | HMH.ANESI ---
[facility] Anesthesia Record Part I Intake, IV Amount: 800 Estimated blood loss (mL): 0 Urine output (mL): 0 Blood Pressure: 127/86 SaO2: 96 Pulse Rate: 62 Respiratory Rate: 12 Temperature: 97.2 F Patient is:: Awake, Stable Stable to PACU at:: 13:55
[2021-01-12 14:12] LABS: POC Glucose,Bedside 125 (70-110)
--- NOTE | 2021-01-12 14:18 | PC.NURSE ---
1405-radiology at bedside 1406-checked fsbs with results of 125
--- NOTE | 2021-01-12 14:30 | PC.NURSE ---
1429-detailed bedside report given to TIFFANY Navarro. Pt transported to post op via stretcher w/hyun rails up and left in care of TIFFANY Navarro, pt stable
--- NOTE | 2021-01-13 09:48 | HMH.ANESII ---
[facility] Anesthesia Record Part II Discharge Time: 14:25 Destination: Surgical Day Care (OP Surgery) PACU nurse assessment reviewed?: Yes Patient Condition:: Good Anesthesia Complications:: None Swallowing reflex intact?: Yes Cyanosis?: No Blood Pressure: 140/81 Pulse Rate: 59 Temperature: 97 F Mental Status: Alert & Oriented Pain level:: 0 Nausea and/or vomitting:: None Intake, IV Amount: 0
[2021-01-13 09:49] VITALS: BP 140/81; PULSE 59; TEMP 36.1
== END 2021-01-12 15:03 | disposition home or self-care (01) ==
LOC: OR 08:42
PROVIDERS: PCP Physician Assistant; Visit Provider Podiatrist
PROC: (CPT 11042; principal; 2021-01-12 10:15)
DX: M20.11 Hallux valgus (acquired), right foot (principal); E11.621 Type 2 diabetes mellitus with foot ulcer; Z79.4 Long term (current) use of insulin; E03.9 Hypothyroidism, unspecified; I10 Essential (primary) hypertension; E78.5 Hyperlipidemia, unspecified; E11.42 Type 2 diabetes mellitus with diabetic polyneuropathy; M19.071 Primary osteoarthritis, right ankle and foot; L97.513 Non-pressure chronic ulcer of other part of right foot with necrosis of muscle; M21.611 Bunion of right foot; M21.6X1 Other acquired deformities of right foot; M62.471 Contracture of muscle, right ankle and foot; B37.0 Candidal stomatitis
CPT/HCPCS: 11042; 15275; 27687; 28292; 73620; 73630; 76000; 82962; 87070; 87077; 87186; 87205; 88305; 88311; 96374; C1762; J1335; J2405; J3370; Q4107

== ENCOUNTER → 2021-01-25 12:22 | Outpatient (CLI) | payer MEDICARE, SELFPAY ==
[2021-01-25 13:10] LABS: Basophils % 0.5 % (0.1-2.0); Eosinophils # 0.2 K/mm3 (0.0-0.4); Eosinophils % 2.4 % (0.1-12.0); Hematocrit 39.5 % (42.0-52.0); Hemoglobin 13.5 g/dL (14.1-18.0); Lymphocytes % 27.3 % (10-50); Mean Corpuscular Hemoglobin 33.3 pg (27.0-31.2); Mean Corpuscular Volume 97.7 fl (80-94); Mean Platelet Volume 8.7 fl (7.4-10.4); Monocytes # 0.4 K/mm3 (0.1-1.0); Monocytes % 5.7 % (1.7-9.3); Neutrophils # 4.7 K/mm3 (1.8-7.8); Neutrophils % 64.1 % (37.0-80.0); Platelet Count 218 K/mm3 (142-424); Red Blood Count 4.05 M/mm3 (4.60-6.20); Red Cell Distribution Width 12.8 % (11.5-17.5); White Blood Count 7.4 K/mm3 (4.8-10.8)
[2021-01-25 13:47] LABS: Chloride 101 mmol/L (98-107); Potassium 4.5 mmoL/L (3.5-5.1); Sodium 139 mmol/L (136-145)
[2021-01-25 13:50] LABS: Alanine Aminotransferase 37 U/L (12-78); Albumin Level 4.5 g/dl (3.5-5.0); Albumin/Globulin Ratio 1.3 (1.1-1.8); Alkaline Phosphatase 126 U/L (38-126); Anion Gap 15.5 mEq/L (5-15); Aspartate Amino Transferase 47 U/L (17-59); Bilirubin,Total 0.6 mg/dl (0.2-1.3); Blood Urea Nitrogen 20 mg/dl (9-20); Calcium 10.1 mg/dl (8.4-10.2); Carbon Dioxide 27 mmol/L (22.0-30.0); Estimated Glomerular Filt Rate 67 ml/min (>60); GFR (African American) 81 ML/MIN (>60); Globulin 3.6 g/dL (1.3-3.2); Glucose 201 mg/dl (74-100); Total Protein,Serum 8.1 g/dl (6.3-8.2)
[2021-01-25 13:53] LABS: Erythrocyte Sedimentation Rate 108 mm/hr (0-20)
== END ==
PROVIDERS: Visit Provider Podiatrist
DX: Z98.890 Other specified postprocedural states (principal); E78.5 Hyperlipidemia, unspecified; L84 Corns and callosities; L98.493 Non-pressure chronic ulcer of skin of other sites with necrosis of muscle
CPT/HCPCS: 80053; 85025; 85651; 86140; 87070; 87077; 87186; 87205

== ENCOUNTER → 2021-02-08 11:47 | Outpatient (CLI) | payer MEDICARE, SELFPAY ==
[2021-02-08 12:11] LABS: Basophils # 0.1 K/mm3 (0-0.2); Basophils % 1.1 % (0.1-2.0); Eosinophils # 0.3 K/mm3 (0.0-0.4); Eosinophils % 3.8 % (0.1-12.0); Hematocrit 38.9 % (42.0-52.0); Lymphocytes # 1.9 K/mm3 (0.7-4.5); Lymphocytes % 29.2 % (10-50); Mean Corpuscular HGB Conc 33.3 g/dL (31.8-35.4); Mean Corpuscular Hemoglobin 32.7 pg (27.0-31.2); Mean Corpuscular Volume 98.1 fl (80-94); Mean Platelet Volume 8.9 fl (7.4-10.4); Monocytes # 0.4 K/mm3 (0.1-1.0); Monocytes % 6.6 % (1.7-9.3); Neutrophils # 3.9 K/mm3 (1.8-7.8); Neutrophils % 59.3 % (37.0-80.0); Platelet Count 157 K/mm3 (142-424); Red Blood Count 3.97 M/mm3 (4.60-6.20); Red Cell Distribution Width 13.1 % (11.5-17.5); White Blood Count 6.5 K/mm3 (4.8-10.8)
[2021-02-08 12:40] LABS: Erythrocyte Sedimentation Rate 62 mm/hr (0-20)
[2021-02-08 12:55] LABS: Chloride 102 mmol/L (98-107); Sodium 138 mmol/L (136-145)
[2021-02-08 12:58] LABS: Alanine Aminotransferase 40 U/L (12-78); Albumin Level 4.1 g/dl (3.5-5.0); Albumin/Globulin Ratio 1.3 (1.1-1.8); Alkaline Phosphatase 123 U/L (38-126); Aspartate Amino Transferase 48 U/L (17-59); Bilirubin,Total 0.3 mg/dl (0.2-1.3); Blood Urea Nitrogen 22 mg/dl (9-20); Carbon Dioxide 27 mmol/L (22.0-30.0); Estimated Glomerular Filt Rate 61 ml/min (>60); GFR (African American) 74 ML/MIN (>60); Globulin 3.1 g/dL (1.3-3.2); Total Protein,Serum 7.2 g/dl (6.3-8.2)
[2021-02-08 13:31] LABS: Glucose 205 mg/dl (74-100)
== END ==
PROVIDERS: Visit Provider Podiatrist
DX: Z98.890 Other specified postprocedural states (principal); E78.5 Hyperlipidemia, unspecified
CPT/HCPCS: 36415; 80053; 85025; 85651; 86140

== ENCOUNTER → 2021-02-22 12:38 | Outpatient (CLI) | payer MEDICARE, SELFPAY ==
--- NOTE | 2021-02-22 12:53 | XR_ITS ---
PROCEDURE: XR FOOT WT BEARING RT 3V CLINICAL INDICATION: DM ulcer COMPARISON: DX XR FOOT WT BEARING RT 3V from 04/01/2020 CR XR FOOT WT BEARING RT 3V from 07/27/2020 CR XR FOOT WT BEARING RT 3V from 11/30/2020 CR XR FOOT RT MIN 3V from 01/12/2021 FINDINGS: There are postsurgical changes from prior bunionectomy. There is some minimal hallux valgus. Soft tissue swelling is present along the dorsal aspect of the foot at the distal metatarsal region. Bandage artifact is present medially at the 1st MTP joint. There is a faint oblique lucency along the proximal and medial aspect of the proximal phalanx of the great toe not readily identified previously and could be due to nondisplaced fracture. Has the patient had a recent injury?. On the oblique view there is a questionable small area of cortical discontinuity along the dorsal and distal aspect of the 1st metatarsal. There is also ill definition of the head of the 2nd metatarsal. There is probably a subchondral cyst at the distal aspect of the 2nd metatarsal however, the cortex lateral to the cystic lesion also appears less well defined compared to the previous study. Osteomyelitis is considered. There are mild degenerative changes in the midfoot. Small vascular calcification noted. IMPRESSION: Postsurgical changes from prior bunionectomy at the distal aspect of the 1st metatarsal. There is a suspected nondisplaced fracture of the proximal phalanx of the 1st toe There is ill definition involving the head of the 2nd metatarsal. Some of this could be related to overlying soft tissue swelling an artifact. A subchondral cyst is present at this area as well. Cannot exclude an erosive process. There is questionable small area of cortical discontinuity of the distal aspect of the 1st metatarsal. Please correlate with clinical parameters. Dictated by: Miko Mak MD 02/22/2021 14:11 Miko Mak MD in [facility] 02/22/2021 14:11
[2021-02-22 13:21] LABS: Basophils % 0.6 % (0.1-2.0); Eosinophils # 0.2 K/mm3 (0.0-0.4); Eosinophils % 3.6 % (0.1-12.0); Hematocrit 41.5 % (42.0-52.0); Hemoglobin 13.2 g/dL (14.1-18.0); Lymphocytes # 1.6 K/mm3 (0.7-4.5); Lymphocytes % 25.4 % (10-50); Mean Corpuscular HGB Conc 31.8 g/dL (31.8-35.4); Mean Corpuscular Volume 100.8 fl (80-94); Monocytes # 0.4 K/mm3 (0.1-1.0); Monocytes % 6.6 % (1.7-9.3); Neutrophils % 63.7 % (37.0-80.0); Platelet Count 171 K/mm3 (142-424); Red Blood Count 4.11 M/mm3 (4.60-6.20); Red Cell Distribution Width 12.4 % (11.5-17.5); White Blood Count 6.3 K/mm3 (4.8-10.8)
[2021-02-22 13:28] LABS: Hemoglobin A1C 7.8 % (4.0-6.0)
[2021-02-22 13:54] LABS: Chloride 100 mmol/L (98-107); Sodium 139 mmol/L (136-145)
[2021-02-22 13:55] LABS: Potassium 4.9 mmoL/L (3.5-5.1)
[2021-02-22 13:57] LABS: Alanine Aminotransferase 34 U/L (12-78); Alkaline Phosphatase 148 U/L (38-126); Aspartate Amino Transferase 43 U/L (17-59); Bilirubin,Total 0.3 mg/dl (0.2-1.3); Blood Urea Nitrogen 23 mg/dl (9-20); Estimated Glomerular Filt Rate 55 ml/min (>60); GFR (African American) 67 ML/MIN (>60)
[2021-02-22 13:58] LABS: Albumin Level 4.4 g/dl (3.5-5.0); Albumin/Globulin Ratio 1.5 (1.1-1.8); Anion Gap 12.9 mEq/L (5-15); Calcium 10.4 mg/dl (8.4-10.2); Carbon Dioxide 31 mmol/L (22.0-30.0); Glucose 231 mg/dl (74-100); Total Protein,Serum 7.4 g/dl (6.3-8.2)
[2021-02-22 14:03] LABS: C-Reactive Protein 2.1 mg/L (0-4)
[2021-02-22 15:06] LABS: Erythrocyte Sedimentation Rate 47 mm/hr (0-20)
== END ==
PROVIDERS: Visit Provider Nurse Practitioner
DX: Z98.890 Other specified postprocedural states (principal); E78.5 Hyperlipidemia, unspecified; E11.621 Type 2 diabetes mellitus with foot ulcer; L97.519 Non-pressure chronic ulcer of other part of right foot with unspecified severity; Z79.4 Long term (current) use of insulin
CPT/HCPCS: 36415; 73630; 80053; 83036; 85025; 85651; 86140

== ENCOUNTER → 2021-03-10 09:58 | Outpatient (CLI) | payer MEDICARE, SELFPAY ==
[2021-03-10 10:30] LABS: Blood Urea Nitrogen 26 mg/dl (9-20); Estimated Glomerular Filt Rate 61 ml/min (>60); GFR (African American) 74 ML/MIN (>60)
== END ==
PROVIDERS: Visit Provider Podiatrist
DX: Z01.812 Encounter for preprocedural laboratory examination (principal)
CPT/HCPCS: 36415; 82565; 84520

== ENCOUNTER → 2021-03-17 13:25 | Outpatient (CLI) | payer MEDICARE, SELFPAY ==
--- NOTE | 2021-03-17 13:25 | MR_ITS ---
PROCEDURE INFORMATION: Exam: MR Right Lower Extremity Other Than Joint Without and With Contrast; Foot Exam date and time: 03/17/2021 1:25 PM Age: 65 years old Clinical indication: Pain; Foot; Right; Prior surgery; Surgery date: 1-6 months; Additional info: Non healing ulcer. Surgery in December for abcess on bunion, no healing. Fall 3 weeks ago. 25ml prohance injected TECHNIQUE: Imaging protocol: MR of the Right lower extremity without and with intravenous contrast. Exam focused on the foot. Contrast material: PROHANCE; Contrast volume: 25 ml; Contrast route: IV; COMPARISON: 1. MR FOOT RT WO/W CON 08/25/2020 9:56 AM 2. CR XR FOOT WT BEARING RT 3V 02/22/2021 1:08:42 PM FINDINGS: Bones and cartilage: No current evidence for osteomyelitis with normal marrow signal in the 1st metatarsal head and elsewhere. Moderate calcaneal spurring. Mild thickening of the medial band plantar fascia without current evidence for plantar fasciitis or definite fibromatosis. Moderate degenerative changes. Joint spaces: Unremarkable. No joint effusion. LIGAMENTS: Lisfranc ligament: Unremarkable. No evidence of tear. TENDONS: Flexor tendons of foot: Unremarkable. No evidence of tear. Tibialis posterior tendon: Unremarkable as visualized. Peroneal tendons: Unremarkable as visualized. Extensor tendons of foot: Unremarkable. No evidence of tear. Tibialis anterior tendon: Unremarkable as visualized. Achilles tendon: Abrupt absence of Achilles tendon beginning 3.5 cm proximal to its distal insertion with fluid-filled gap of 7 cm between this and the proximal tendon, appearance suggesting this is postsurgical. Please confirm. Tarsal canal (Sinus tarsi): Unremarkable. Tarsal tunnel: Unremarkable. Soft tissues: Soft tissue ulceration lateral to the surgically altered 1st MTP. There is a small amount of fluid here appearing to communicate with the skin surface, probably infected there small foci of artifact some of which is postsurgical in some which may be tiny bits of soft tissue gas. There is not a separate defined drainable abscess. Extensive surrounding enhancement and cellulitis. Plantar fascia: See Bones and cartilage finding. IMPRESSION: 1. Soft tissue ulceration lateral to the surgically altered 1st MTP. There is a small amount of fluid here appearing to communicate with the skin surface, probably infected. There are small foci of artifact here, some of which is postsurgical and some which may be tiny bits of soft tissue gas. There is not a separate defined drainable abscess. Extensive surrounding enhancement and cellulitis. 2. No current evidence for osteomyelitis with normal marrow signal in the 1st metatarsal head and elsewhere. 3. Abrupt absence of Achilles tendon beginning 3.5 cm proximal to its distal insertion with fluid-filled gap of 7 cm between this and the proximal tendon, appearance suggesting this is postsurgical. Please confirm.
== END ==
PROVIDERS: PCP Physician Assistant; Visit Provider Podiatrist
DX: E11.621 Type 2 diabetes mellitus with foot ulcer (principal); L98.493 Non-pressure chronic ulcer of skin of other sites with necrosis of muscle; L98.499 Non-pressure chronic ulcer of skin of other sites with unspecified severity; L97.509 Non-pressure chronic ulcer of other part of unspecified foot with unspecified severity; M79.671 Pain in right foot; Z79.4 Long term (current) use of insulin
CPT/HCPCS: 73720

== ENCOUNTER → 2021-03-22 12:48 | Outpatient (CLI) | payer MEDICARE, SELFPAY ==
[2021-03-22 13:48] LABS: Basophils # 0.1 K/mm3 (0-0.2); Basophils % 0.7 % (0.1-2.0); Eosinophils # 0.3 K/mm3 (0.0-0.4); Eosinophils % 4.8 % (0.1-12.0); Hematocrit 41.9 % (42.0-52.0); Hemoglobin 13.4 g/dL (14.1-18.0); Lymphocytes # 2.5 K/mm3 (0.7-4.5); Lymphocytes % 37.1 % (10-50); Mean Corpuscular HGB Conc 31.9 g/dL (31.8-35.4); Mean Corpuscular Hemoglobin 32.7 pg (27.0-31.2); Mean Corpuscular Volume 102.5 fl (80-94); Mean Platelet Volume 9.6 fl (7.4-10.4); Monocytes # 0.5 K/mm3 (0.1-1.0); Monocytes % 6.5 % (1.7-9.3); Neutrophils # 3.5 K/mm3 (1.8-7.8); Neutrophils % 50.8 % (37.0-80.0); Platelet Count 192 K/mm3 (142-424); Red Blood Count 4.08 M/mm3 (4.60-6.20); Red Cell Distribution Width 13.1 % (11.5-17.5); White Blood Count 6.8 K/mm3 (4.8-10.8)
[2021-03-22 14:24] LABS: Hemoglobin A1C 7.1 % (4.0-6.0)
[2021-03-22 14:34] LABS: Alanine Aminotransferase 56 U/L (12-78); Albumin/Globulin Ratio 1.3 (1.1-1.8); Alkaline Phosphatase 121 U/L (38-126); Anion Gap 15.5 mEq/L (5-15); Aspartate Amino Transferase 57 U/L (17-59); Bilirubin,Total 0.5 mg/dl (0.2-1.3); Blood Urea Nitrogen 20 mg/dl (9-20); Calcium 10.1 mg/dl (8.4-10.2); Carbon Dioxide 27 mmol/L (22.0-30.0); Chloride 103 mmol/L (98-107); Estimated Glomerular Filt Rate 67 ml/min (>60); GFR (African American) 81 ML/MIN (>60); Glucose 72 mg/dl (74-100); Potassium 4.5 mmoL/L (3.5-5.1); Sodium 141 mmol/L (136-145)
[2021-03-22 14:42] LABS: C-Reactive Protein 3.5 mg/L (0-4)
[2021-03-22 15:47] LABS: Erythrocyte Sedimentation Rate 104 mm/hr (0-20)
== END ==
PROVIDERS: Visit Provider Nurse Practitioner
DX: E11.42 Type 2 diabetes mellitus with diabetic polyneuropathy (principal); Z79.4 Long term (current) use of insulin; L98.493 Non-pressure chronic ulcer of skin of other sites with necrosis of muscle
CPT/HCPCS: 36415; 80053; 83036; 85025; 85651; 86140

== ENCOUNTER → 2021-04-05 09:47 | Outpatient (CLI) | payer MEDICARE, SELFPAY ==
[2021-04-05 10:55] LABS: Erythrocyte Sedimentation Rate 22 mm/hr (0-20)
[2021-04-05 11:42] LABS: Chloride 102 mmol/L (98-107); Sodium 139 mmol/L (136-145)
[2021-04-05 11:43] LABS: Potassium 4.7 mmoL/L (3.5-5.1)
[2021-04-05 11:45] LABS: Alanine Aminotransferase 45 U/L (12-78); Albumin/Globulin Ratio 1.4 (1.1-1.8); Alkaline Phosphatase 123 U/L (38-126); Anion Gap 12.7 mEq/L (5-15); Aspartate Amino Transferase 70 U/L (17-59); Basophils % 0.6 % (0.1-2.0); Bilirubin,Total 0.4 mg/dl (0.2-1.3); Blood Urea Nitrogen 19 mg/dl (9-20); Carbon Dioxide 29 mmol/L (22.0-30.0); Eosinophils # 0.2 K/mm3 (0.0-0.4); Estimated Glomerular Filt Rate 61 ml/min (>60); GFR (African American) 74 ML/MIN (>60); Globulin 2.9 g/dL (1.3-3.2); Hematocrit 43.7 % (42.0-52.0); Hemoglobin 13.9 g/dL (14.1-18.0); Lymphocytes # 1.6 K/mm3 (0.7-4.5); Mean Corpuscular HGB Conc 31.7 g/dL (31.8-35.4); Mean Corpuscular Hemoglobin 33.4 pg (27.0-31.2); Mean Corpuscular Volume 105.3 fl (80-94); Mean Platelet Volume 9.3 fl (7.4-10.4); Monocytes # 0.5 K/mm3 (0.1-1.0); Monocytes % 8.6 % (1.7-9.3); Neutrophils # 3.3 K/mm3 (1.8-7.8); Neutrophils % 58.9 % (37.0-80.0); Platelet Count 201 K/mm3 (142-424); Red Blood Count 4.15 M/mm3 (4.60-6.20); Red Cell Distribution Width 12.8 % (11.5-17.5); Total Protein,Serum 6.9 g/dl (6.3-8.2); White Blood Count 5.5 K/mm3 (4.8-10.8)
[2021-04-05 11:46] LABS: Calcium 10.4 mg/dl (8.4-10.2); Glucose 176 mg/dl (74-100)
[2021-04-05 11:51] LABS: C-Reactive Protein 2.6 mg/L (0-4)
== END ==
PROVIDERS: Visit Provider Nurse Practitioner
DX: S92.414A Nondisplaced fracture of proximal phalanx of right great toe, initial encounter for closed fracture (principal); Z98.890 Other specified postprocedural states; E08.621 Diabetes mellitus due to underlying condition with foot ulcer; L97.511 Non-pressure chronic ulcer of other part of right foot limited to breakdown of skin; Z51.89 Encounter for other specified aftercare; Z79.4 Long term (current) use of insulin
CPT/HCPCS: 36415; 80053; 85025; 85651; 86140; 87070; 87077; 87186; 87205

== ENCOUNTER 2021-04-12 14:00 | Outpatient (RCR) | payer MEDICARE, SELFPAY ==
--- NOTE | 2021-02-10 10:46 | HMH.PTOPWND ---
Rehab Outpt Wound Evaluation Rehab OP Wound Evaluation Start: 02/10/21 10:35 Freq: Status: Active Protocol: Document 02/10/21 10:35 [email or web address] (Rec: 02/10/21 10:45 [email or web address] [id number]) Electronically Signed By Arjun Best, PT 02/10/21 10:35 Subjective/History History History This is the initial tsical Therapy wound clinic evaluation for Aldo Heath. Pt is a 65 y/o male referred to wound care for non-healing surgical wound on R foot. Pt had surgical excision and debridement of ulcer and bunionectomy w/ dehisense on . Pt is diabetic w/ A1C of ~ 7.2. Pt has CAM boot on and is NWB using RKS Subjective Subjective Pt does reports neuropathy and decreased sensation on B feet . Wound Eval Wound Right Medial Distal Foot Wound Type dehisced surgical wound Is This a Chronic Wound Yes Wound Length (cm) 4.0 Wound Width (cm) 4.0 Wound Bed Appearance Dusky Red,Yellow,Eschar, Necrotic Percentage of Slough (%) 50 Percentage of Eschar (Black) (%) 50 Percentage of Eschar (Yellow) (%) 50 Wound Margins Description Indistinct Surrounding Tissue Appearance Dark Red Drainage Description Purulent Drainage Amount Small Dressing Status Soiled Wound Topical Solution/Irrigant Enzymatic Irrigant,Antibiotic Irrigant Primary Dressing Silver Dressing Comment purocol silver Wound Secondary Dressing Type Silver Dressing,Absorbant Pad Comment opticell ag, optifoam gentle pad, kerlix,coban Wound Debridement Method Forceps Wound Debridement Amount of Tissue very minimal Removed Wound Debridement Result Yellow Sloughing Remains, Necrotic Tissue Remains Dressing Change Patient Tolerance Tolerated Well Wound Problems/Impairments Impairments Problems/Impairmments Impaired Walking,Impaired Standing,Impaired Shower/ Bathing,Impaired Household Care,Impaired Stair Climbing, Impaired Recreational Activities,Wound Care Needs, Impaired Self Care/Self
== END 2021-04-12 14:05 | disposition home or self-care (01) ==
LOC: PT 14:00
PROVIDERS: PCP Physician Assistant; Visit Provider Podiatrist
DX: E08.621 Diabetes mellitus due to underlying condition with foot ulcer (principal); L98.499 Non-pressure chronic ulcer of skin of other sites with unspecified severity; L97.511 Non-pressure chronic ulcer of other part of right foot limited to breakdown of skin; Z79.4 Long term (current) use of insulin
CPT/HCPCS: 97162; 97164; 97597

== ENCOUNTER → 2021-04-12 14:31 | Outpatient (CLI) | payer MEDICARE, SELFPAY | PROVIDERS: Visit Provider Podiatrist | DX: Z01.812 Encounter for preprocedural laboratory examination (principal); Z20.822 Contact with and (suspected) exposure to COVID-19; E11.621 Type 2 diabetes mellitus with foot ulcer; Z79.4 Long term (current) use of insulin | CPT/HCPCS: C9803; U0003; U0005 ==

== ENCOUNTER 2021-04-14 11:59 | Day surgery (SDC) | payer MEDICARE, SELFPAY ==
[2021-04-12 12:40] VITALS: BMI 36.6
[2021-04-14 12:26] VITALS: BP 151/94; PULSE 72; RESP 18; TEMP 36.1; O2SAT 97
[2021-04-14 12:45] LABS: POC Glucose,Bedside 232 (70-110)
[2021-04-14 13:32] VITALS: BP 137/70; PULSE 60; RESP 18; TEMP 36.6; O2SAT 96
[2021-04-14 13:37] VITALS: BP 137/70; PULSE 60; RESP 18; O2SAT 96
--- NOTE | 2021-04-14 13:38 | HMH.OPNOTE ---
Date of procedure: 04/14/21 Pre-op Diagnosis:: 1. Right diabetic foot ulcer 2. Right sub 1st metatarsal ulcer 3. Acquired bilateral hammer toes 4. Acquired hallux valgus of both feet 5. Primary osteoarthritis of right foot Post-op Diagnosis:: Same Procedure performed:: 1. Right foot wound debridement 2. Right foot application of graft (Apligraf) Surgeon:: Steffanie Arreola DPM Anesthesia: none Estimated blood loss (mL): 1 Clinical Note:: Reviewed and discussed results of MRI. I explained the opening of the ulcer is what the report called soft tissue gas. The achilles rupture is not traumatic, it is from KYLE. There was no evidence of osteomyelitis. Patient has failed conservative treatment, including multiple debridements, various wound dressings, off-loading, immobilization. The recent x-rays and MRI are negative for underlying bone infection. Any prior skin/soft tissue infection resolved with oral antibiotics. We discussed surgery. All risks and benefits were discussed including but not limited to: damage to blood vessels and nerves, bleeding, infection, wound complications, need for further surgery, implant/graft failure, need for removal of implant/graft, allergic reaction, prolonged or permanent swelling of the extremity, prolonged or permanent pain or deformity, CRPS/RSD, DVT/PE, and anesthetic complications including . Patient understands if wound/graft gets infected, it could lead to prolonged oral or IV antibiotics or increased risk of osteomyelitis, which could lead to possible loss of digits, partial foot or even BKA. No guarantees were given. All questions fully answered. The patient verbalized understanding and agreed to proceed with surgery. Consent was obtained. Patient is to be NWB in post op shoe/short fracture boot, with DME. Labs reviewed and infection markers trending down, wbc and crp wnl. Esr down from 104 to 22. Operative findings:: Right subfirst metatarsal diabetic ulcer. Post debridement sharply excisionally with a 15 blade and forceps wound extended through skin into subcutaneous tissue. It did not extend into the deep fascia or to bone. No purulence drainage or malodor noted. Post debridement the wound was 100% granular and measured 3.5x3.2x0.2cm. Operative note:: On this date and time patient was deemed an appropriate surgical candidate. With informed consent signed, the patient was taken to the local procedure operating theater room. The patient was positioned supine. No anesthesia was induced. No tourniquet used. No local anesthesia used. Right foot sub 1st metatarsal ulcer debridement: The right lower extremity was prepped and draped in normal sterile fashion. Attention was directed to the medial plantar aspect of the right 1st MPJ where an ulcer was noted. Utilizing a 15 blade, forceps and a curette the ulcer was sharply excisionally debrided through the skin into involving subcutaneous tissue. No signs of infection noted. See operative findings for pre and postop measurements. Some bleeding noted. Saline irrigation was used to flush the ulcer site. Skin was cleansed. Right foot application of Apligraft: Using a sterile standard technique, the graft was prepared and fenestrated. The graft was not cut. A 44sq cm wound graft applied. It was applied/inserted over the wound. Mastisol and steri-strips were used to hold the graft in place. Adaptic then applied and secured with steri strips. A dry sterile dressing was then applied to foot. The patient tolerated the procedure well, without complications. Materials: Apligraft ([employer]) Expiration Date: 2021-04-21 Lot: [id number] Discharge/Plan: Ok to discharge home when ready and vss. Patient is to maintain dressing clean dry and intact. Elevate on two pillows. Continue antibiotics (Cipro). Non weight bearing to the right lower extremity with DME assistance (RKS). Follow up in one week for skin/graft check and possible graft re-application. Condition: stabl
--- NOTE | 2021-04-14 14:16 | SUR.OPER ---
Dressing includes mastisol, steristrips, graft placement, adaptic, 4x4, chapito, soft roll, and rochelle
== END 2021-04-14 13:44 | disposition home or self-care (01) ==
LOC: OUTP 12:01
PROVIDERS: PCP Physician Assistant; Visit Provider Podiatrist
PROC: (CPT 11042; principal; 2021-04-14 13:00)
DX: E11.621 Type 2 diabetes mellitus with foot ulcer (principal); L97.412 Non-pressure chronic ulcer of right heel and midfoot with fat layer exposed; E11.42 Type 2 diabetes mellitus with diabetic polyneuropathy; Z79.4 Long term (current) use of insulin; I10 Essential (primary) hypertension; E03.9 Hypothyroidism, unspecified
CPT/HCPCS: 11042; 15275; 82962; 96372; Q4101

== ENCOUNTER → 2021-04-19 12:40 | Outpatient (CLI) | payer MEDICARE, SELFPAY ==
[2021-04-19 12:59] LABS: Basophils # 0.1 K/mm3 (0-0.2); Basophils % 0.7 % (0.1-2.0); Eosinophils # 0.2 K/mm3 (0.0-0.4); Eosinophils % 3.3 % (0.1-12.0); Hematocrit 42.4 % (42.0-52.0); Hemoglobin 13.7 g/dL (14.1-18.0); Lymphocytes # 2.1 K/mm3 (0.7-4.5); Lymphocytes % 31.2 % (10-50); Mean Corpuscular HGB Conc 32.3 g/dL (31.8-35.4); Mean Corpuscular Hemoglobin 33.3 pg (27.0-31.2); Mean Corpuscular Volume 103.1 fl (80-94); Mean Platelet Volume 9.1 fl (7.4-10.4); Monocytes # 0.5 K/mm3 (0.1-1.0); Monocytes % 7.7 % (1.7-9.3); Neutrophils # 3.8 K/mm3 (1.8-7.8); Platelet Count 206 K/mm3 (142-424); Red Blood Count 4.11 M/mm3 (4.60-6.20); Red Cell Distribution Width 12.7 % (11.5-17.5); White Blood Count 6.7 K/mm3 (4.8-10.8)
[2021-04-19 13:17] LABS: Chloride 102 mmol/L (98-107); Potassium 4.6 mmoL/L (3.5-5.1); Sodium 140 mmol/L (136-145)
[2021-04-19 13:20] LABS: Alanine Aminotransferase 47 U/L (12-78); Albumin Level 4.1 g/dl (3.5-5.0); Albumin/Globulin Ratio 1.5 (1.1-1.8); Alkaline Phosphatase 115 U/L (38-126); Anion Gap 13.6 mEq/L (5-15); Aspartate Amino Transferase 58 U/L (17-59); Bilirubin,Total 0.3 mg/dl (0.2-1.3); Blood Urea Nitrogen 18 mg/dl (9-20); Calcium 10.3 mg/dl (8.4-10.2); Carbon Dioxide 29 mmol/L (22.0-30.0); Estimated Glomerular Filt Rate 67 ml/min (>60); GFR (African American) 81 ML/MIN (>60); Globulin 2.8 g/dL (1.3-3.2); Glucose 160 mg/dl (74-100); Total Protein,Serum 6.9 g/dl (6.3-8.2)
[2021-04-19 13:26] LABS: C-Reactive Protein 2.3 mg/L (0-4)
[2021-04-19 13:46] LABS: Erythrocyte Sedimentation Rate 94 mm/hr (0-20)
== END ==
PROVIDERS: Visit Provider Podiatrist
DX: Z01.812 Encounter for preprocedural laboratory examination (principal); Z20.822 Contact with and (suspected) exposure to COVID-19; E11.621 Type 2 diabetes mellitus with foot ulcer; L98.493 Non-pressure chronic ulcer of skin of other sites with necrosis of muscle; Z79.4 Long term (current) use of insulin
CPT/HCPCS: 36415; 80053; 85025; 85651; 86140; C9803; U0003; U0005

== ENCOUNTER 2021-04-21 13:06 | Day surgery (SDC) | payer MEDICARE, SELFPAY ==
[2021-04-21 13:31] VITALS: BP 149/64; PULSE 66; RESP 20; TEMP 36.4; O2SAT 98; BMI 36.6
[2021-04-21 13:40] LABS: POC Glucose,Bedside 182 (70-110)
--- NOTE | 2021-04-21 14:02 | P.OP_ITS ---
Date of procedure: 04/21/21 Pre-op Diagnosis:: 1. Right diabetic foot ulcer 2. Right sub 1st metatarsal ulcer 3. Acquired bilateral hammer toes 4. Acquired hallux valgus of both feet 5. Primary osteoarthritis of right foot Post-op Diagnosis:: Same Procedure performed:: 1. Right foot wound debridement 2. Right foot application of graft (Apligraf) Surgeon:: Steffanie Arreola DPM Anesthesia: none Estimated blood loss (mL): 1 Clinical Note:: Patient presents for repeat graft application #2. He denies any new issues, denies pain. The patient did get the dressing wet in the shower this week. He has been taking all abx, meds as directed. Operative findings:: Right subfirst metatarsal diabetic ulcer. Pre debridment, graft intact to wound edges and measured 2.6x3.1x0.cm Post debridement sharply excisionally with a 15 blade, forceps and curette wound extended through graft, skin into subcutaneous tissue. It did not extend into the deep fascia or to bone. No purulence drainage or malodor noted. Post debridement the wound was 100% granular and measured 2.5x2.8x0.2cm. Operative note:: On this date and time patient was deemed an appropriate surgical candidate. With informed consent signed, the patient was taken to the local procedure operating theater room. The patient was positioned supine. No anesthesia was induced. No tourniquet used. No local anesthesia used. Right foot sub 1st metatarsal ulcer debridement: The right lower extremity was prepped and draped in normal sterile fashion. Attention was directed to the medial plantar aspect of the right 1st MPJ where an ulcer was noted. Utilizing a 15 blade, forceps and a curette the ulcer was sharply excisionally debrided through the skin into and involving subcutaneous tissue. No signs of infection noted. See operative findings for pre and postop measurements. Some bleeding noted. Saline irrigation with gentamicin was used to flush the ulcer site. Skin was cleansed. Right foot application of Apligraft: Using a sterile standard technique, the graft was prepared and fenestrated. The graft was not cut. A 44sq cm wound graft applied. It was applied/inserted over the wound. Mastisol and steri-strips were used to hold the graft in place. Adaptic then applied and secured with steri strips. A dry sterile dressing was then applied to foot. The patient tolerated the procedure well, without complications. Materials: Apligraf ([employer]) Expiration Date: 2021-04-28 Lot: [id number] Discharge/Plan: Ok to discharge home when ready and vss. Patient is to maintain dressing clean dry and intact. Elevate on two pillows. Continue antibiotics (Cipro). Non weight bearing to the right lower extremity with DME assistance (RKS). Follow up in one week for OR skin/graft check and graft re-application. Condition: stable Disposition: same day Complications:: None
[2021-04-21 14:48] VITALS: BP 155/75; PULSE 58; RESP 16; TEMP 36.4; O2SAT 96
== END 2021-04-21 15:00 | disposition home or self-care (01) ==
LOC: OUTP 13:08
PROVIDERS: PCP Physician Assistant; Visit Provider Podiatrist
PROC: (CPT 11042; principal; 2021-04-21 14:00)
DX: E11.621 Type 2 diabetes mellitus with foot ulcer (principal); L97.412 Non-pressure chronic ulcer of right heel and midfoot with fat layer exposed; E11.42 Type 2 diabetes mellitus with diabetic polyneuropathy; Z79.4 Long term (current) use of insulin; I10 Essential (primary) hypertension; E03.9 Hypothyroidism, unspecified
CPT/HCPCS: 11042; 15275; 82962; Q4101

== ENCOUNTER → 2021-04-26 11:45 | Outpatient (CLI) | payer MEDICARE, SELFPAY | PROVIDERS: Visit Provider Podiatrist | DX: Z01.812 Encounter for preprocedural laboratory examination (principal); Z20.822 Contact with and (suspected) exposure to COVID-19; U07.1 COVID-19 | CPT/HCPCS: C9803; U0003; U0005 ==

== ENCOUNTER → 2021-04-28 12:55 | Day surgery (SDC) | payer MEDICARE, SELFPAY ==
[2021-04-28 13:14] VITALS: BMI 37.3
[2021-04-28 13:19] VITALS: BP 150/85; PULSE 71; RESP 20; TEMP 36.3; O2SAT 97
[2021-04-28 13:51] LABS: POC Glucose,Bedside 178 (70-110)
[2021-04-28 14:07] VITALS: BP 171/80; PULSE 63; RESP 18; TEMP 36.6; O2SAT 96
--- NOTE | 2021-04-28 14:09 | HMH.OPNOTE ---
Date of procedure: 04/28/21 Pre-op Diagnosis:: 1. Right diabetic foot ulcer 2. Right sub 1st metatarsal ulcer 3. Acquired bilateral hammer toes 4. Acquired hallux valgus of both feet 5. Primary osteoarthritis of right foot Post-op Diagnosis:: Same Procedure performed:: 1. Right foot wound debridement 2. Right foot application of graft (Apligraf) Surgeon:: Steffanie Arreola DPM Anesthesia: none Estimated blood loss (mL): 1 Clinical Note:: Patient presents for repeat graft, application #3. He denies any new issues, denies pain. He has been taking all abx, meds as directed. Operative findings:: Right subfirst metatarsal diabetic ulcer. Pre debridment, graft intact to wound edges and measured 2.5x2.5x0.1cm Post debridement sharply excisionally with a 15 blade, forceps and curette wound extended through graft, skin into subcutaneous tissue. It did not extend into the deep fascia or to bone. No purulence drainage or malodor noted. Post debridement the wound was 100% granular and measured 2.2x2.4x0.1cm. Operative note:: On this date and time patient was deemed an appropriate surgical candidate. With informed consent signed, the patient was taken to the local procedure operating theater room. The patient was positioned supine. No anesthesia was induced. No tourniquet used. No local anesthesia used. Right foot sub 1st metatarsal ulcer debridement: The right lower extremity was prepped and draped in normal sterile fashion. Attention was directed to the medial plantar aspect of the right 1st MPJ where an ulcer was noted. Utilizing a 15 blade, forceps and a curette the ulcer was sharply excisionally debrided through the skin into and involving subcutaneous tissue. No signs of infection noted. See operative findings for pre and postop measurements. Some bleeding noted. Saline irrigation with gentamicin was used to flush the ulcer site. Skin was cleansed. Right foot application of Apligraft: Using a sterile standard technique, the graft was prepared and fenestrated. The graft was not cut. A 44sq cm wound graft applied. It was applied/inserted over the wound. Mastisol and steri-strips were used to hold the graft in place. Adaptic then applied and secured with steri strips. A dry sterile dressing was then applied to foot. The patient tolerated the procedure well, without complications. Materials: Apligraf ([employer]) Expiration Date: 2021-05-05 Lot: [id number] Discharge/Plan: Ok to discharge home when ready and vss. Patient is to maintain dressing clean dry and intact. Elevate on two pillows. Continue antibiotics (Cipro). Non weight bearing to the right lower extremity with DME assistance (RKS). Follow up in one week for OR skin/graft check and graft re-application. Condition: stable Disposition: same day Complications:: None
[2021-04-28 14:16] VITALS: BP 171/80; PULSE 63; RESP 18; TEMP 36.6; O2SAT 96
== END ==
LOC: OUTP 12:57
PROVIDERS: PCP Physician Assistant; Visit Provider Podiatrist
PROC: (CPT 11042; principal; 2021-04-28 13:45)
DX: E11.621 Type 2 diabetes mellitus with foot ulcer (principal); E11.42 Type 2 diabetes mellitus with diabetic polyneuropathy; Z79.4 Long term (current) use of insulin; I10 Essential (primary) hypertension; E03.9 Hypothyroidism, unspecified; L97.412 Non-pressure chronic ulcer of right heel and midfoot with fat layer exposed
CPT/HCPCS: 11042; 15275; 82962; Q4101

== ENCOUNTER 2021-05-04 10:35 | Day surgery (SDC) | payer MEDICARE, SELFPAY ==
[2021-05-04 10:45] VITALS: BP 141/87; PULSE 60; RESP 20; TEMP 36.5; O2SAT 97; BMI 82.2
[2021-05-04 12:22] VITALS: BP 173/96; PULSE 56; RESP 16; TEMP 36.4; O2SAT 99
--- NOTE | 2021-05-04 12:28 | HMH.OPNOTE ---
Date of procedure: 05/04/21 Pre-op Diagnosis:: 1. Right diabetic foot ulcer 2. Right sub 1st metatarsal ulcer 3. Acquired bilateral hammer toes 4. Acquired hallux valgus of both feet 5. Primary osteoarthritis of right foot Post-op Diagnosis:: Same Procedure performed:: 1. Right foot wound debridement 2. Right foot application of graft (Apligraf) Surgeon:: Steffanie Arreola DPM Anesthesia: none Estimated blood loss (mL): 1 Clinical Note:: Patient presents for repeat graft, application #4. He denies any new issues, denies pain. He has completed all abx, meds as directed. Operative findings:: Right subfirst metatarsal diabetic ulcer. Pre debridment, graft intact to wound edges and measured 2.0x2.0x0.1cm. Post debridement sharply excisionally with a 15 blade, forceps and curette wound extended through graft, skin into subcutaneous tissue. It did not extend into the deep fascia or to bone. No purulence drainage or malodor noted. Post debridement the wound was 100% granular and measured 1.8x2.0x0.1cm. Operative note:: On this date and time patient was deemed an appropriate surgical candidate. With informed consent signed, the patient was taken to the local procedure operating theater room. The patient was positioned supine. No anesthesia was induced. No tourniquet used. No local anesthesia used. Right foot sub 1st metatarsal ulcer debridement: The right lower extremity was prepped and draped in normal sterile fashion. Attention was directed to the medial plantar aspect of the right 1st MPJ where an ulcer was noted. Utilizing a 15 blade, forceps and a curette the ulcer was sharply excisionally debrided through the skin into and involving subcutaneous tissue. Wound superficial to majority of wound, but the superior proximal most aspect of wound did extend into subq. No signs of infection noted. See operative findings for pre and postop measurements. Minimal bleeding noted. Saline irrigation with gentamicin was used to flush the ulcer site. Skin was cleansed. Right foot application of Apligraft: Using a sterile standard technique, the graft was prepared and fenestrated. The graft was not cut. A 44sq cm wound graft applied. It was applied/inserted over the wound. Mastisol and steri-strips were used to hold the graft in place. Adaptic then applied and secured with steri strips. A dry sterile dressing was then applied to foot. The patient tolerated the procedure well, without complications. Materials: Apligraf ([employer]) Expiration Date: 2021-05-12 Lot: [id number] Discharge/Plan: Ok to discharge home when ready and vss. Patient is to maintain dressing clean dry and intact. Elevate on two pillows. Completed antibiotics (Cipro). Non weight bearing to the right lower extremity with DME assistance (RKS). Follow up in one week for OR skin/graft check and graft re-application. Condition: stable Disposition: same day Complications:: None
== END 2021-05-04 12:30 | disposition home or self-care (01) ==
LOC: OUTP 10:36
PROVIDERS: PCP Physician Assistant; Visit Provider Podiatrist
PROC: (CPT 11042; principal; 2021-05-04 11:00)
DX: E11.621 Type 2 diabetes mellitus with foot ulcer (principal); L97.412 Non-pressure chronic ulcer of right heel and midfoot with fat layer exposed; E11.42 Type 2 diabetes mellitus with diabetic polyneuropathy; I10 Essential (primary) hypertension; E03.9 Hypothyroidism, unspecified
CPT/HCPCS: 11042; 15275; Q4101

== ENCOUNTER → 2021-05-11 09:12 | Day surgery (SDC) | payer MEDICARE, SELFPAY ==
[2021-05-09 13:51] VITALS: BMI 37.3
[2021-05-11 09:15] VITALS: BP 156/80; PULSE 65; RESP 18; TEMP 36.4; O2SAT 99
[2021-05-11 11:57] VITALS: BP 179/93; PULSE 54; RESP 18; TEMP 36.2; O2SAT 98
[2021-05-11 12:07] VITALS: BP 179/93; PULSE 54; RESP 18; TEMP 36.2; O2SAT 98
--- NOTE | 2021-05-11 12:15 | HMH.OPNOTE ---
Date of procedure: 05/11/21 Pre-op Diagnosis:: 1. Right diabetic foot ulcer 2. Right sub 1st metatarsal ulcer 3. Acquired bilateral hammer toes 4. Acquired hallux valgus of both feet 5. Primary osteoarthritis of right foot Post-op Diagnosis:: Same Procedure performed:: 1. Right foot wound debridement 2. Right foot application of graft (Apligraf) Surgeon:: Steffanie Arreola DPM Anesthesia: none Estimated blood loss (mL): 1 Clinical Note:: Patient presents for repeat graft, application #5. He denies any new issues, denies pain. He has completed all abx, meds as directed. Operative findings:: Right subfirst metatarsal diabetic ulcer. Pre debridment, graft intact to wound edges and measured 1.9x1.8x0.1cm. Post debridement sharply excisionally with a 15 blade, forceps and curette wound extended through graft, skin into subcutaneous tissue. It did not extend into the deep fascia or to bone. No purulence drainage or malodor noted. Post debridement the wound was 100% granular and measured 1.4x1.5x0.1cm. Operative note:: On this date and time patient was deemed an appropriate surgical candidate. With informed consent signed, the patient was taken to the local procedure operating theater room. The patient was positioned supine. No anesthesia was induced. No tourniquet used. No local anesthesia used. Right foot sub 1st metatarsal ulcer debridement: The right lower extremity was prepped and draped in normal sterile fashion. Attention was directed to the medial plantar aspect of the right 1st MPJ where an ulcer was noted. Utilizing a 15 blade, forceps and a curette the ulcer was sharply excisionally debrided through the skin into and involving subcutaneous tissue. Wound superficial to majority of wound, but the superior proximal most aspect of wound did extend into subq. No signs of infection noted. See operative findings for pre and postop measurements. Minimal bleeding noted. Saline irrigation with gentamicin was used to flush the ulcer site. Skin was cleansed. Right foot application of Apligraft: Using a sterile standard technique, the graft was prepared and fenestrated. The graft was not cut. A 44sq cm wound graft applied. It was applied/inserted over the wound. Mastisol and steri-strips were used to hold the graft in place. Adaptic then applied and secured with steri strips. A dry sterile dressing was then applied to foot. The patient tolerated the procedure well, without complications. Materials: Apligraf ([employer]) Expiration Date: 2021-05-18 Lot: [id number] Discharge/Plan: Ok to discharge home when ready and vss. Patient is to maintain dressing clean dry and intact. Elevate on two pillows. Non weight bearing to the right lower extremity with DME assistance (RKS). Follow up in one week for skin/graft check. Condition: stable Disposition: same day Complications:: None
== END ==
PROVIDERS: PCP Physician Assistant; Visit Provider Podiatrist
PROC: (CPT 11042; principal; 2021-05-11 10:15)
DX: E11.621 Type 2 diabetes mellitus with foot ulcer (principal); L97.412 Non-pressure chronic ulcer of right heel and midfoot with fat layer exposed; E11.42 Type 2 diabetes mellitus with diabetic polyneuropathy; I10 Essential (primary) hypertension; Z79.4 Long term (current) use of insulin; E03.9 Hypothyroidism, unspecified
CPT/HCPCS: 11042; 15275; Q4101

== ENCOUNTER 2021-07-07 09:00 | Outpatient (RCR) | payer MEDICARE, SELFPAY ==
--- NOTE | 2021-05-30 09:57 | HMH.PTOPWND ---
Rehab Outpt Wound Evaluation Rehab OP Wound Evaluation Start: 05/30/21 09:00 Freq: Status: Active Protocol: Document 05/30/21 09:51 DAE (Rec: 05/30/21 09:57 DAE [id number]) Electronically Signed By Kit Albert, PT 05/30/21 09:51 Subjective/History History History Pt is 65 yowm who presents with continued R 1st MT DFU nx ~ 1 yr, now S/P I&D and 5th Apligraft application on 05/11. Pt reports no current pain, but he does have significant neuropathy. He reports using collagen dressing at home and changing dressings every 2 days. He has PMH of DM-II, HTN, HL. Subjective Subjective No current c/o pain. Wound Eval Wound Right Medial Great Toe Wound Type Diabetic Foot Ulcer Is This a Chronic Wound Yes Wound Length (cm) 2.2 Wound Width (cm) 3.0 Wound Bed Appearance Beefy Red,Green [place] Percentage Granulated (%) 100 Wound Margins Description Macerated Surrounding Tissue Appearance Macerated Drainage Description Serous Drainage Amount Small Wound Topical Solution/Irrigant Saline Irrigant Primary Dressing collagen Comment puracol Wound Secondary Dressing Type Composite Comment optifoam gentle border lite Wound Debridement Method Gauze,Mechanical Wound Debridement Amount of Tissue Minimal Removed Dressing Change Patient Tolerance Tolerated Well Wound Problems/Impairments Impairments Problems/Impairmments Impaired Walking,Impaired Standing,Wound Care Needs, Subjective C/O Pain,Impaired Self Care/Self Management Prognosis Rehab Potential Good Clinical Impression Consistent with Diagnosis Yes Short Term Goals Number of Weeks 4 Decrease Wound Area Yes: by 50% Skilled Nursing Goals Number of Weeks 8 Decrease Wound Area Yes: by 100% Patient to be Ind w/ HEP Yes Patient to be Ind w/ Home Wound Care/ Yes Dressing Changes Outpatient Therapy Plan of Care Treatment Plan May Include Therapeutic Exercise Including Home Yes Exercise Program Manual Therapy Techniques Yes Neuromuscular Re-education Yes Therapeutic Activities to Return to Yes Previous Functional/Work Level Gait Training Yes ADL/Self Care Ed
--- NOTE | 2021-06-28 09:35 | HMH.RHREAS ---
Rehab Reassessment Rehab OP Re-assessment Start: 06/28/21 09:28 Freq: Status: Active Protocol: Document 06/28/21 09:32 DAE (Rec: 06/28/21 09:34 DAE [id number]) Electronically Signed By Kit Albert, PT 06/28/21 09:32 Rehab Re-assessment Subjective Subjective Pt reports no new c/o. No pain noted. He reports maintaining his WBing status well at home and presents with cam walker [facility]. Objective Objective Notes R Medial Great Toe wound: L= 1 .1 cm, W= 1.1 cm. Minimal Maceration noted to the inferior wound border. Assessment Progress Assessment Progressing as Expected Assessment Notes Significant decrease in wound size and elma-wound maceration . Continues to tolerate all dressing changes well without c/o. Patient goals met ST Goals Not Met LT,2,3 Revised Goals none Plan Plan Continue per initial POC. Frequency of Therapy 2 x/wk Duration of therapy 8 wks Time and Billing Re-Eval Time 15 Re-Eval Billing Units 0 PHYSICIAN CERTIFICATION: I certify the specified therapy services for Aldo Heath are required, authorized, and reviewed every 30 days.
== END 2021-07-07 09:05 | disposition home or self-care (01) ==
LOC: PT 09:00
PROVIDERS: PCP Physician Assistant; Visit Provider Podiatrist
DX: E11.621 Type 2 diabetes mellitus with foot ulcer (principal); L97.511 Non-pressure chronic ulcer of other part of right foot limited to breakdown of skin; Z79.4 Long term (current) use of insulin
CPT/HCPCS: 97140; 97162; 97164; 97597

== ENCOUNTER → 2022-01-13 08:00 | Outpatient (CLI) | payer MEDICARE, SELFPAY ==
[2022-01-13 09:27] LABS: Chloride 103 mmol/L (98-107); Sodium 137 mmol/L (136-145)
[2022-01-13 09:30] LABS: Alanine Aminotransferase 51 U/L (12-78); Albumin/Globulin Ratio 1.5 (1.1-1.8); Alkaline Phosphatase 120 U/L (38-126); Anion Gap 9.5 mEq/L (5-15); Aspartate Amino Transferase 53 U/L (17-59); Bilirubin,Total 0.3 mg/dl (0.2-1.3); Blood Urea Nitrogen 18 mg/dl (9-20); Calcium 10.4 mg/dl (8.4-10.2); Carbon Dioxide 29 mmol/L (22.0-30.0); Cholesterol 145 mg/dl (140-200); Estimated Glomerular Filt Rate 75 ml/min (>60); GFR (African American) 90 ML/MIN (>60); Globulin 2.7 g/dL (1.3-3.2); Glucose 201 mg/dl (74-100); HDL Cholesterol 29 mg/dl (40-60); Potassium 4.5 mmoL/L (3.5-5.1); Total Protein,Serum 6.7 g/dl (6.3-8.2); Triglycerides 234 mg/dl (30-150); VLDL Cholesterol 47 mg/dL (0-40)
[2022-01-13 09:41] LABS: Direct LDL Cholesterol 86.87 mg/dL (100-129)
[2022-01-13 09:46] LABS: Free T4 (Free Thyroxine) 0.56 ng/dl (0.78-2.19)
[2022-01-13 10:01] LABS: Thyroid Stimulating Hormone 2.47 uIU/mL (0.465-4.68)
== END ==
PROVIDERS: PCP Physician Assistant; Visit Provider Physician Assistant
DX: E78.2 Mixed hyperlipidemia (principal); E03.9 Hypothyroidism, unspecified; Z79.4 Long term (current) use of insulin; E11.65 Type 2 diabetes mellitus with hyperglycemia
CPT/HCPCS: 36415; 80053; 80061; 83036; 84439; 84443

== ENCOUNTER → 2022-02-03 09:07 | Outpatient (CLI) | payer MEDICARE, SELFPAY ==
--- NOTE | 2022-02-03 | US_ITS ---
FINAL REPORT CLINICAL HISTORY: Previous GABBI 10/17 (rt gabbi=1.08 lt gabbi=1.14), never smoked, HTN, DM, hyperlipidemia, bilateral rest pain, bilateral claudication. FINDINGS: COMPLETE ANKLE/BRACHIAL INDICES BILATERAL The right GABBI is 1.18. The left GABBI is 1.21. IMPRESSION: ABIs are within normal limits bilaterally. Reviewed, Interpreted and Dictated by Matty Walden III, MD Transcribed by Josefa Bettencourt Authenticated and . [facility]
--- NOTE | 2022-02-03 09:55 | XR_ITS ---
FINAL REPORT CLINICAL HISTORY: pain, pt states that his foot is still swollen and bruised after sx 3 months ago COMPARISON: February 22, 2021 FINDINGS: RIGHT FOOT Three views of the right foot demonstrate no acute fracture or dislocation. There are postoperative changes in the head of the 1st metatarsal. There is mild degenerative change which is stable. There are calcaneal spurs. The soft tissues are unremarkable. IMPRESSION: Postoperative and degenerative change with no acute bony abnormality. Reviewed, Interpreted and Dictated by Matty Walden III, MD Transcribed by Morenita Sharif Authenticated and [facility]
== END ==
PROVIDERS: PCP Physician Assistant; Visit Provider Nurse Practitioner Family
DX: M19.071 Primary osteoarthritis, right ankle and foot (principal); M79.674 Pain in right toe(s); R09.89 Other specified symptoms and signs involving the circulatory and respiratory systems
CPT/HCPCS: 73630; 93923

== ENCOUNTER → 2022-02-07 14:24 | Outpatient (POV) | payer MEDICARE, SELFPAY | PROVIDERS: Visit Provider Dermatology | DX: Z00.00 Encounter for general adult medical examination without abnormal findings (principal) ==

== ENCOUNTER → 2022-03-28 09:22 | Outpatient (POV) | payer MEDICARE, SELFPAY | PROVIDERS: Visit Provider Dermatology | DX: Z00.00 Encounter for general adult medical examination without abnormal findings (principal) ==

== ENCOUNTER → 2022-04-17 08:19 | Outpatient (CLI) | payer MEDICARE, SELFPAY ==
[2022-04-17 09:32] LABS: Alanine Aminotransferase 51 U/L (12-78); Albumin/Globulin Ratio 1.4 (1.1-1.8); Alkaline Phosphatase 125 U/L (38-126); Anion Gap 14.3 mEq/L (5-15); Aspartate Amino Transferase 59 U/L (17-59); Blood Urea Nitrogen 19 mg/dl (9-20); Calcium 10.1 mg/dl (8.4-10.2); Carbon Dioxide 28 mmol/L (22.0-30.0); Chloride 101 mmol/L (98-107); Chol/HDL Ratio 4.5 (1-3.5); Cholesterol 145 mg/dl (140-200); Estimated Glomerular Filt Rate 75 ml/min (>60); GFR (African American) 90 ML/MIN (>60); Globulin 2.8 g/dL (1.3-3.2); Glucose 120 mg/dl (74-100); HDL Cholesterol 32 mg/dl (40-60); Potassium 4.3 mmoL/L (3.5-5.1); Sodium 139 mmol/L (136-145); Total Protein,Serum 6.8 g/dl (6.3-8.2); Triglycerides 142 mg/dl (30-150); VLDL Cholesterol 28 mg/dL (0-40)
[2022-04-17 09:34] LABS: Bilirubin,Total < 0.1 mg/dl (0.2-1.3)
[2022-04-17 09:43] LABS: Direct LDL Cholesterol 87.25 mg/dL (100-129)
[2022-04-17 09:48] LABS: Free T4 (Free Thyroxine) 0.64 ng/dl (0.78-2.19)
[2022-04-17 10:02] LABS: Thyroid Stimulating Hormone 1.22 uIU/mL (0.465-4.68)
== END ==
PROVIDERS: PCP Physician Assistant; Visit Provider Physician Assistant
DX: E11.65 Type 2 diabetes mellitus with hyperglycemia (principal); E78.2 Mixed hyperlipidemia; E03.9 Hypothyroidism, unspecified; Z79.4 Long term (current) use of insulin
CPT/HCPCS: 36415; 80053; 80061; 83036; 84439; 84443

== ENCOUNTER → 2023-02-21 10:59 | Outpatient (CLI) | payer MEDICARE, SELFPAY ==
--- NOTE | 2023-02-21 11:05 | XR_ITS ---
FINAL REPORT CLINICAL HISTORY: RT KNEE PAIN FINDINGS: Right knee Three views were obtained. There are moderate degenerative changes, greatest in the medial compartment. No joint effusion is identified. No soft tissue abnormality is identified. IMPRESSION: No acute process Reviewed, Interpreted and Dictated by Shea Jones MD Transcribed by Josefa Bettencourt Authenticated and . [facility]
== END ==
PROVIDERS: PCP Physician Assistant; Visit Provider Physician Assistant
DX: M25.561 Pain in right knee (principal)
CPT/HCPCS: 73562

== ENCOUNTER → 2023-04-17 08:00 | Outpatient (CLI) | payer MEDICARE, SELFPAY ==
[2023-04-17 08:46] LABS: Hemoglobin A1C 7.4 % (4.0-6.0)
[2023-04-17 09:20] LABS: Alanine Aminotransferase 45 U/L (12-78); Albumin Level 4.3 g/dl (3.5-5.0); Albumin/Globulin Ratio 1.5 (1.1-1.8); Alkaline Phosphatase 124 U/L (38-126); Anion Gap 13.5 mEq/L (5-15); Aspartate Amino Transferase 49 U/L (17-59); Bilirubin,Total 0.4 mg/dl (0.2-1.3); Blood Urea Nitrogen 20 mg/dl (9-20); Calcium 10.5 mg/dl (8.4-10.2); Carbon Dioxide 28 mmol/L (22.0-30.0); Chloride 102 mmol/L (98-107); Chol/HDL Ratio 5.7 (1-3.5); Cholesterol 165 mg/dl (140-200); Estimated Glomerular Filt Rate 60 ml/min (>60); GFR (African American) 73 ML/MIN (>60); Globulin 2.8 g/dL (1.3-3.2); Glucose 163 mg/dl (74-100); HDL Cholesterol 29 mg/dl (40-60); Potassium 4.5 mmoL/L (3.5-5.1); Sodium 139 mmol/L (136-145); Total Protein,Serum 7.1 g/dl (6.3-8.2); Triglycerides 245 mg/dl (30-150); VLDL Cholesterol 49 mg/dL (0-40)
[2023-04-17 09:37] LABS: Free T4 (Free Thyroxine) 0.69 ng/dl (0.78-2.19)
[2023-04-17 09:38] LABS: 25-OH Vitamin D, Total 34.3 ng/mL (30-100)
[2023-04-17 09:51] LABS: Thyroid Stimulating Hormone 2.13 uIU/mL (0.465-4.68)
== END ==
PROVIDERS: PCP Physician Assistant; Visit Provider Physician Assistant
DX: E11.65 Type 2 diabetes mellitus with hyperglycemia (principal); E78.2 Mixed hyperlipidemia; E55.9 Vitamin D deficiency, unspecified; Z79.4 Long term (current) use of insulin; E03.9 Hypothyroidism, unspecified
CPT/HCPCS: 36415; 80053; 80061; 82306; 83036; 84439; 84443

== ENCOUNTER → 2023-07-09 14:48 | Outpatient (CLI) | payer MEDICARE, SELFPAY ==
--- NOTE | 2023-07-09 14:51 | MR_ITS ---
FINAL REPORT CLINICAL HISTORY: ACUTE PAIN OF RIGHT KNEE. KNEE INSTABILITY. PAIN WHEN BENDING. MEDIAL SIDED KNEE PAIN COMPARISON: None FINDINGS: Multi planar MR imaging was performed of the right knee. The anterior cruciate ligament appears thin and rather gracile, probably due to chronic partial tear. There is abnormal signal throughout the substance of the posterior cruciate ligament consistent with intrasubstance degeneration. The quadriceps and patellar tendons are intact. There is a complex tear of the posterior horn of the medial meniscus, well seen on the coronal images. There is a full-thickness tear of the posterior horn of the lateral meniscus, also best seen on the coronal images. The medial and lateral collateral ligaments appear intact. The medial and lateral retinacula appear intact. There are small osteochondral lesions along the undersurface of the patella No evidence of soft tissue inflammatory reaction. 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 Full-thickness tears of the posterior horns of the lateral and medial menisci. Reviewed, Interpreted and Dictated by Carlos Cardoso MD Transcribed by Hoa Anderson Authenticated and [facility]
== END ==
PROVIDERS: PCP Physician Assistant; Visit Provider Physician Assistant
DX: M25.561 Pain in right knee (principal)
CPT/HCPCS: 73721

== ENCOUNTER → 2023-07-12 09:44 | Outpatient (CLI) | payer MEDICARE, SELFPAY ==
[2023-07-12 11:26] LABS: Hemoglobin A1C 7.6 % (4.0-6.0)
[2023-07-12 11:27] LABS: Alanine Aminotransferase 43 U/L (12-78); Albumin Level 4.3 g/dl (3.5-5.0); Albumin/Globulin Ratio 1.5 (1.1-1.8); Alkaline Phosphatase 98 U/L (38-126); Anion Gap 9.6 mEq/L (5-15); Aspartate Amino Transferase 45 U/L (17-59); Bilirubin,Total 0.5 mg/dl (0.2-1.3); Blood Urea Nitrogen 17 mg/dl (9-20); Carbon Dioxide 30 mmol/L (22.0-30.0); Chloride 102 mmol/L (98-107); Cholesterol 150 mg/dl (140-200); Estimated Glomerular Filt Rate 67 ml/min (>60); GFR (African American) 81 ML/MIN (>60); Globulin 2.8 g/dL (1.3-3.2); Glucose 175 mg/dl (74-100); HDL Cholesterol 30 mg/dl (40-60); Potassium 4.6 mmoL/L (3.5-5.1); Sodium 137 mmol/L (136-145); Total Protein,Serum 7.1 g/dl (6.3-8.2); Triglycerides 165 mg/dl (30-150); VLDL Cholesterol 33 mg/dL (0-40)
[2023-07-12 11:38] LABS: Direct LDL Cholesterol 98.13 mg/dL (100-129)
[2023-07-12 11:43] LABS: Free T4 (Free Thyroxine) 0.72 ng/dl (0.78-2.19)
[2023-07-12 11:45] LABS: 25-OH Vitamin D, Total 49.1 ng/mL (30-100)
[2023-07-12 11:59] LABS: Thyroid Stimulating Hormone 0.99 uIU/mL (0.465-4.68)
== END ==
PROVIDERS: PCP Physician Assistant; Visit Provider Physician Assistant
DX: E11.65 Type 2 diabetes mellitus with hyperglycemia (principal); E78.2 Mixed hyperlipidemia; E55.9 Vitamin D deficiency, unspecified; E03.9 Hypothyroidism, unspecified; Z68.38 Body mass index [BMI] 38.0-38.9, adult; Z79.4 Long term (current) use of insulin; Z79.84 Long term (current) use of oral hypoglycemic drugs
CPT/HCPCS: 36415; 80053; 80061; 82306; 83036; 84439; 84443

== ENCOUNTER 2024-04-13 11:18 | Emergency (ER) | payer MEDICARE, SELFPAY ==
[2024-04-13 11:40] VITALS: BP 154/75; PULSE 80; RESP 20; TEMP 36.7; O2SAT 96; BMI 34.5
--- NOTE | 2024-04-13 11:48 | ED_ITS ---
Discharge Plan Disposition Patient Disposition: Home, Self-Care Condition: Good Prescriptions Prescriptions: New cephalexin 500 mg capsule 500 mg PO Q8H 10 Days Qty: 30 0RF nystatin 100,000 unit/mL suspension 4 ml PO Q6H 10 Days Qty: 160 0RF Rx Instructions: apply 4ml in mouth swish and spit No Action ezetimibe 10 mg tablet 10 mg PO DAILY ramipril 10 mg capsule 10 mg PO DAILY hydrochlorothiazide 12.5 mg capsule 12.5 mg PO DAILY hydrocodone-acetaminophen 5-325 mg tablet 1 tab PO DAILY glimepiride 4 mg tablet 4 mg PO DAILY diclofenac sodium 75 mg tablet,delayed release (DR/EC) 75 mg PO DAILY ondansetron 4 mg tablet,disintegrating 4 mg PO Q6H Qty: 30 2RF insulin glargine 100 unit/mL (3 mL) insulin pen 45 unit SQ BID insulin lispro [Humalog KwikPen Insulin] 100 unit/mL insulin pen 1 sliding scale dose SQ ciclopirox 0.77 % gel 1 applic TOPICAL ONCE 90 Days Qty: 30 2RF Rx Instructions: Apply daily to affected toenail. Smooth with emery board weekly. levothyroxine 50 mcg tablet 50 mcg PO ibuprofen 600 MG tablet 600 mg PO DAILYP PRN (Reason: pain ) aspirin 81 MG tablet,chewable 81 mg PO DAILY Referrals Follow up/Referrals: Ángela Joshi PA [Primary Care Provider] - See instructions Activity Restrictions/Add. Instructions Additional Instructions/Restrictions: Take medication as prescribed Call Dentist in the morning for appointment Rinse mouth with warm salt water may help with tongue soreness from rubbing against broken tooth Straight to ER if any life threatening symptoms Clinical Impressions Clinical Impression: Dental infection Instructions Patient Instructions: Cephalexin, DI for Tooth Abscess Print Language Print Language: Malian Discharge ED Provider[place]iva Howard [facility] [place] General Stated complaint: difficulty swallowing, has a broken tooth Time Seen by Provider: 04/13/24 11:48 History of Present Illness Provider Complaint: Patient states that he was eating pizza last night and his filling in his right back tooth broke off and it is scratching his tongue and making his mouth sore on that side States he is a diabetic and they told him to come in and get on antibiotics to prevent infection until he can get to the Dentist states also he get thrush while taking antibitoics wanting to get some nystatin Related Data Home Medications ?Medication ?Instructions ?Recorded ?Confirmed ezetimibe 10 mg tablet 10 mg PO DAILY Cholesterol 04/01/20 01/31/22 hydrochlorothiazide 12.5 mg capsule 12.5 mg PO DAILY bp 04/01/20 01/31/22 hydrocodone 5 mg-acetaminophen 325 1 tab PO DAILY Pain 04/01/20 01/31/22 mg tablet ramipril 10 mg capsule 10 mg PO DAILY bp 04/01/20 01/31/22 diclofenac sodium 75 mg 75 mg PO DAILY Pain 07/05/20 01/31/22 tablet,delayed release glimepiride 4 mg tablet 4 mg PO DAILY Diabetes 07/05/20 01/31/22 aspirin 81 mg chewable tablet 81 mg PO DAILY . 04/14/21 01/31/22 ibuprofen 600 mg tablet 600 mg PO DAILYP PRN pain 04/14/21 01/31/22 insulin glargine 100 unit/mL (3 45 unit SQ BID Diabetes 05/19/21 01/31/22 mL) subcutaneous pen insulin lispro 100 unit/mL 1 sliding scale dose SQ 05/19/21 01/31/22 subcutaneous pen (Humalog KwikPen (U-100) Insulin) levothyroxine 50 mcg tablet 50 mcg PO 01/31/22 01/31/22 Previous Rx's ?Medication ?Instructions ?Recorded ondansetron 4 mg disintegrating 4 mg PO Q6H nausea and vomiting 12/02/20 tablet #30 tabs ciclopirox 0.77 % topical gel 1 applic topical ONCE toenail 08/23/21 fungus 90 days #30 grams cephalexin 500 mg capsule 500 mg PO Q8H 10 days #30 caps 04/13/24 nystatin 100,000 unit/mL oral 4 ml PO Q6H 10 days #160 mL 04/13/24 suspension Allergies Allergy/AdvReac Type Severity Reaction Status Date / Time Penicillins Allergy Mild Verified 01/31/22 11:03 [facility] Disclaimer: The information contained in this section may have been updated after the patient was seen, as this information can be updated by other users. Medical History (Updated 04/13/24 @ 11:57 by Oliva Howard APRN) Encounter for pre-operative cardiovascular clearance HTN (hypertension) Abnormal EKG Sinus bradycardia Social History Smoking Status: Never smoker second hand exposure: No alcohol intake: current alcohol intake frequency: holidays/special occasions only substance use type: denies use current occupational status: retired Travel in the last 8 weeks: None household members: spouse housing: house current occupational exposures/hazards: No caffeine: Yes ROS Obtained: Yes All systems reviewed & no additional complaints except as documented and Yes Systems reviewed as appropriate & no additional complaints except as documented Constitutional Constitutional: Reports system reviewed and no additional complaints, except as documented and Reports as per HPI ENT Ears, Nose, Mouth, and Throat: Reports system reviewed and no additional complaints, except as documented, Reports as per HPI and Reports dental pain (broken tooth on right back lower tooth) Cardiovascular Cardiovascular: Reports system reviewed and no additional complaints, except as documented and Reports as per HPI Respiratory Respiratory: Reports system reviewed and no additional complaints, except as documented and Reports as per HPI Gastrointestinal Gastrointestingal: Reports system reviewed and no additional complaints, except as documented and as per HPI Physical Exam General General appearance: alert and in no apparent distress ENT ENT exam: Present mucous membranes moist Expanded ENT Exam Teeth exam: Present dental caries, fractured tooth # (filling on right lower tooth broken) and gingival swelling (mild) Respiratory Respiratory exam: Present normal lung sounds bilaterally; Absent respiratory distress or wheezes Cardiovascular Cardiovascular exam: Present regular rate, normal rhythm and normal heart sounds Neurological Exam Neurological exam: Present alert, oriented X3 and normal gait Medical Decision Making Mendez Inquiry Pt receiving controlled substance: No Mendez was queried for this patient: No Medical Decision Narrative: Patient states he is allergic to PCN but has taken Cephalexin in the past without complications or reactions
[2024-04-13 12:00] VITALS: BP 154/75; PULSE 80; RESP 20; TEMP 36.7; O2SAT 96
== END 2024-04-13 12:03 | disposition home or self-care (01) ==
PROVIDERS: Emergency Provider Nurse Practitioner; PCP Physician Assistant
DX: K04.7 Periapical abscess without sinus (principal)
CPT/HCPCS: 99204; 99212; G0463

== ENCOUNTER 2024-09-19 12:06 | Outpatient (CLI) | payer MEDICARE, SELFPAY ==
--- NOTE | 2024-09-19 | XR_ITS ---
FINAL REPORT CLINICAL HISTORY: LUMBAR BACK PAIN W/RADICULOPATHY AFFECTING LOWER EXTREMITY FINDINGS: AP, lateral, and oblique views of the lumbar spine were obtained. There is no acute fracture. There is grade 1 anterior spondylolisthesis of L4 on L5. Alignment is otherwise normal. Vertebral body height is preserved. There is multilevel degenerative disc disease most pronounced at L2-3. No acute paraspinal abnormality is identified. IMPRESSION: No acute osseous abnormalities lumbar spine. Multilevel degenerative disc disease. Reviewed, Interpreted and Dictated by Farzaneh Enriquez MD Transcribed by Sasha Juan Authenticated and [facility]
== END 2024-09-19 23:59 | disposition home or self-care (01) ==
LOC: RAD 12:08
PROVIDERS: PCP Physician Assistant; Visit Provider Physician Assistant
DX: M54.16 Radiculopathy, lumbar region (principal)
CPT/HCPCS: 72110

== ENCOUNTER 2024-09-20 09:42 | Outpatient (CLI) | payer MEDICARE, SELFPAY ==
[2024-09-20 10:02] LABS: Basophils % 0.6 % (0.1-2.0); Eosinophils # 0.2 K/mm3 (0.0-0.4); Eosinophils % 2.5 % (0.1-12.0); Hematocrit 39.9 % (42.0-52.0); Hemoglobin 13.4 g/dL (14.1-18.0); Lymphocytes # 1.6 K/mm3 (0.7-4.5); Mean Corpuscular HGB Conc 33.6 g/dL (31.8-35.4); Mean Corpuscular Hemoglobin 33.2 pg (27.0-31.2); Mean Corpuscular Volume 98.8 fl (80-94); Mean Platelet Volume 11.2 fl (7.4-10.4); Monocytes # 0.6 K/mm3 (0.1-1.0); Monocytes % 9.4 % (1.7-9.3); Neutrophils # 4.1 K/mm3 (1.8-7.8); Neutrophils % 62.3 % (37.0-80.0); Platelet Count 157 K/mm3 (142-424); Red Blood Count 4.04 M/mm3 (4.60-6.20); Red Cell Distribution Width 11.8 % (11.5-17.5); White Blood Count 6.5 K/mm3 (4.8-10.8)
[2024-09-20 10:28] LABS: Albumin Level 4.4 g/dl (3.5-5.0); Chloride 99 mmol/L (98-107); Potassium 4.4 mmoL/L (3.5-5.1); Sodium 138 mmol/L (136-145)
[2024-09-20 10:30] LABS: Blood Urea Nitrogen 19 mg/dl (9-20); Estimated Glomerular Filt Rate 74 ml/min (>60); GFR (African American) 90 ML/MIN (>60)
[2024-09-20 10:31] LABS: Alanine Aminotransferase 26 U/L (12-78); Albumin/Globulin Ratio 1.9 (1.1-1.8); Alkaline Phosphatase 127 U/L (38-126); Anion Gap 10.4 mEq/L (5-15); Aspartate Amino Transferase 30 U/L (17-59); Bilirubin,Total 0.5 mg/dl (0.2-1.3); Calcium 10.2 mg/dl (8.4-10.2); Carbon Dioxide 33 mmol/L (22.0-30.0); Chol/HDL Ratio 4.2 (1-3.5); Cholesterol 156 mg/dl (140-200); Globulin 2.3 g/dL (1.3-3.2); Glucose 224 mg/dl (74-100); HDL Cholesterol 37 mg/dl (40-60); Total Protein,Serum 6.7 g/dl (6.3-8.2); Triglycerides 168 mg/dl (30-150); VLDL Cholesterol 34 mg/dL (0-40)
[2024-09-20 10:42] LABS: Direct LDL Cholesterol 90.86 mg/dL (100-129)
[2024-09-20 11:01] LABS: Thyroid Stimulating Hormone 1.24 uIU/mL (0.465-4.68)
[2024-09-20 11:13] LABS: Hemoglobin A1C 7.6 % (4.0-6.0)
== END 2024-09-20 23:59 | disposition home or self-care (01) ==
LOC: LAB 09:43
PROVIDERS: PCP Physician Assistant; Visit Provider Physician Assistant
DX: E78.2 Mixed hyperlipidemia (principal); I10 Essential (primary) hypertension; E11.65 Type 2 diabetes mellitus with hyperglycemia; E55.9 Vitamin D deficiency, unspecified; E03.9 Hypothyroidism, unspecified
CPT/HCPCS: 36415; 80053; 80061; 82306; 83036; 84439; 84443; 85025

== ENCOUNTER 2024-10-03 13:48 | Outpatient (CLI) | payer MEDICARE, SELFPAY ==
--- NOTE | 2024-10-03 13:52 | MR_ITS ---
FINAL REPORT TECHNIQUE: Multiplanar MR without contrast CLINICAL HISTORY: ARTHRITIS, BACK PAIN THAT RADIAES FINDINGS: Sagittal images show normal vertebral height. There is mild retrolisthesis of L2 on 3 and L3 on 4. There is mild anterolisthesis of L4 and 5. Mild S-shaped scoliosis is identified. There are type I discogenic endplate changes at L2-3. L1-2: Moderate annular disc bulge. Mild canal stenosis. Moderate right and mild left neuroforaminal narrowing. L2-3: Moderate annular disc bulge and facet arthropathy. Moderate central canal stenosis and moderate neuroforaminal narrowing. L3-4: Moderate annular disc bulge and advanced facet arthropathy. Moderate central canal stenosis. Severe left and moderate right neuroforaminal narrowing and left lateral recess stenosis. L4-5: Large annular disc bulge. Advanced central canal stenosis. Advanced bilateral neuroforaminal narrowing. L5-S1: Severe facet overgrowth. Small synovial cyst arising from the medial left facet joint measuring 8 x 5 mm. Mild annular disc bulge. Moderate central canal stenosis and severe bilateral neuroforaminal narrowing. IMPRESSION: Severe diffuse degenerative changes resulting in significant canal stenosis and neuroforaminal narrowing. Reviewed, Interpreted and Dictated by Shea Jones MD Transcribed by Josefa Bettencourt Authenticated and [facility]
== END 2024-10-03 23:59 | disposition home or self-care (01) ==
LOC: RAD 13:49
PROVIDERS: PCP Physician Assistant; Visit Provider Physician Assistant
DX: M54.9 Dorsalgia, unspecified (principal); M19.90 Unspecified osteoarthritis, unspecified site
CPT/HCPCS: 72148

== ENCOUNTER 2024-11-24 07:04 | Outpatient (CLI) | payer MEDICARE, SELFPAY ==
--- OUTSIDE RECORDS SUMMARY | 2024-11-24 07:06 | XMS_ITS | Clinical Summary ---
Author Organization [facility] , [facility] Address [address] [place] [address] Phone Care Team Providers Care Senior Corporate Accountant Name Role Phone Ifeoma SANTORO, Jorge Alberto Pantoja Unavailable + [phone] Ángela Joshi PA-C Unavailable [phone] Reason for Visit and Chief Complaint Follow Up Problems Includes: Problems addressed during this encounter and other active Problems All Visits Onset Date Resolved Date Provider Condition S tatus Joint Pain in the Right Knee 08/28/2023 Dwight Bolton PA-C Active Last Documented On 4 2:29PM ; [facility], [facility] Plan of Treatment Future Appointments Date Time Location Provi julieth INJECTION 02/12/2025 10:00AM [facility] Dwight Bolton PA-C Last Documented On 5 10:51AM ; [facility], [facility] Assessments Includes: Assessments from this encounter No Assessments Recorded Medical Equipment - Implanted Devices Includes: Current Devices No Medical Equipment Recorded Medications Includes: Medications discussed during this encounter and other current Medications Current Medications (continue as prescribed) Ezetimibe 10 MG Oral Tablet 08/24/2023 Provider: Diagnosis: Last Documented On 4 3:02PM By Oliva Gunn ; [facility], [facility] Ramipril 10 MG Oral Capsule 08/24/2023 Provider: Diagnosis: Last Documented On 4 3:02PM By Oliva Gunn ; [facility], [facility] Nystatin [id number] UNIT/ML Mouth/Throat Suspension 2023 Provider: Diagnosis: Last Documented On 4 3:02PM By Oliva Gunn ; [facility], [facility] Diclofenac Sodium 75 MG Oral Tablet Delayed Release 08/10/2023 Provider: Jessica Sidhu MD Diagnosis: Last Documented On 4 3:02PM By Oliva Gunn ; [facility], [facility] HumaLOG KwikPen 100 UNIT/ML Subcutaneous Solution Pen-injector 08/01/2023 Provider: LEONID Kamara Diagnosis: Last Documented On 4 3:02PM By Oliva Gunn ; [facility], [facility] Lantus SoloStar 100 UNIT/ML Subcutaneous Solution Pen-injector 08/01/2023 Provider: LEONID Kamara Diagnosis: Last Documented On 4 3:02PM By Oliva Gunn ; [facility], [facility] Promethazine-DM 6.25-15 MG/5ML Oral Syrup 07/29/2023 Provider: Diagnosis: Last Documented On 4 3:02PM By Oliva Gunn ; [facility], [facility] Levothyroxine Sodium 88 MCG Oral Tablet 07/20/2023 P rovider: Diagnosis: Last Documented On 4 3:02PM By Oliva Gunn ; [facility], [facility] Medications Administered Includes: Administered Medications from this encounter No Administered Medications Recorded Results Includes: Results discussed during this encounter No Results Recorded For Specified Dates History of Present Illness Includes: History of Present Illness from this encounter No History of Present Illness Recorded Social History No Social History Recorded - Smoking Status Unknown Procedures and Surgical History Includes: Procedures from this encounter Procedures Code Diagnosis Performing Provider Service Location Service Date DRAIN/INJECT, JOINT/BURSA (RIGHT) Unilateral primary osteoarthritis, right knee Dwight Bolton PA-C [facility] 11/29/2023 Last Documented On 4 11:45AM ; [facility] Triamcinolone/Kenalog, 10mg per cc [id number] Unilateral primary osteoarthritis, right knee Dwight Bolton PA-C [facility] 11/29/2023 Last Documented On 4 11:45AM ; [facility] Medical History Includes: Medical History addressed during this encounter No Medical History Recorded Family History Includes: Family History addressed during this encounter No Family History Recorded Review of Systems Includes: Review of Systems from this encounter No Review of Systems Recorded Mental Status Includes: Mental Status from this encounter No Mental Status Recorded Functional Status Includes: Functional Status from this encounter No Functional Status Recorded Physical Exam Includes: Physical Exam from this encounter No Physical Exam Recorded Allergies Includes: Active Allergies No Known Allergies Encounters Encounter Provider Location Date Check-In Time Check-Out Time Diagnosis Follow Up Dwight Bolton PA-C [facility] 4 11:05AM 11:39AM Insurance Includes: Active Insurance Policies Plan Name Member ID Group # Subscriber Relationship Effect albin Dates 1 - [facility]/[employer] RE [id number] Aldo Heath Self Clinical Notes Includes: Clinical Notes from this encounter No Clinical Notes Recorded
--- OUTSIDE RECORDS SUMMARY | 2024-11-24 07:06 | XMS_ITS ---
Author Organization [facility] , [facility] Address [address] [place] [address] Phone Care Team Providers Care Market Development Specialist Name Role Phone Ifeoma SANTORO, Jorge Alberto Pantoja Unavailable [phone] Ángela Joshi PA-C Unavailable [phone] Problems Includes: Active, inactive, and resolved Problems All Visits Onset Date Resolved Date Provider Condition S tatus Joint Pain in the Right Knee 08/28/2023 Dwight Bolton PA-C Active Last Documented On 4 2:29PM ; [facility] Plan of Treatment Future Appointments Date Time Location Provi julieth INJECTION 02/12/2025 10:00AM [facility] Dwight Bolton PA-C Last Documented On 5 10:51AM ; [facility] Instructions to patient Lose weight Last Documented On 4 3:00PM ; [facility] Assessments Includes: Assessments for all patient encounters Findings Encounter Date Overweight SECOND OPINION with Dwight schaefer PA-C 08/28/2023 Last Documented On 4 3:46PM ; [facility] Instructions Includes: Instructions for all patient encounters Instructions to patient Lose weight Last Documented On 4 3:00PM ; [facility] Medical Equipment - Implanted Devices Includes: Current and historical Devices No Medical Equipment Recorded Medications Includes: Current and historical Medications Current Medications (continue as prescribed) Ezetimibe 10 MG Oral Tablet 08/24/2023 Provider: Diagnosis: Last Documented On 4 3:02PM By Oliva Gunn ; [facility] Ramipril 10 MG Oral Capsule 08/24/2023 Provider: Diagnosis: Last Documented On 4 3:02PM By Oliva Gunn ; [facility] Nystatin [id number] UNIT/ML Mouth/Throat Suspension 2023 Provider: Diagnosis: Last Documented On 4 3:02PM By Oliva Gunn ; [facility] Diclofenac Sodium 75 MG Oral Tablet Delayed Release 08/10/2023 Provider: Jessica Sidhu MD Diagnosis: Last Documented On 4 3:02PM By Oliva Gunn ; [facility] HumaLOG KwikPen 100 UNIT/ML Subcutaneous Solution Pen-injector 08/01/2023 Provider: LEONID Kamara Diagnosis: Last Documented On 4 3:02PM By Oliva Gunn ; [facility] Lantus SoloStar 100 UNIT/ML Subcutaneous Solution Pen-injector 08/01/2023 Provider: LEONID Kamara Diagnosis: Last Documented On 4 3:02PM By Oliva Gunn ; [facility] Promethazine-DM 6.25-15 MG/5ML Oral Syrup 07/29/2023 Provider: Diagnosis: Last Documented On 4 3:02PM By Oliva Gunn ; [facility] Levothyroxine Sodium 88 MCG Oral Tablet 07/20/2023 P amyder: Diagnosis: Last Documented On 4 3:02PM By Oliva Gunn ; [facility] Medications Administered Includes: Administered Medications in patient's chart No Administered Medications Recorded Results Includes: Results from 11/25/2023 through 11/24/2024 No Results Recorded For Specified Dates History of Present Illness History of Present Illness not supported for this document type No History of Present Illness Recorded Social History Description Last Updated Tobacco non-user 08/28/2023 Last Documented On 4 3:46PM ; [facility] Smoking Status Unknown Procedures and Surgical History Includes: Procedures from 11/25/2023 through 11/24/2024 Procedures Code Diagnosis Performing Provider Service Location Service Date Triamcinolone/Ke nalog, 10mg per cc [id number] Unilateral primary osteoarthritis, right knee Dwight Bolton PA-C [facility] 11/12/2024 Last Documented On 5 7:40AM ; [facility] DRAIN/INJECT, JOINT/BURSA (RIGHT) Unilateral primary osteoarthritis, right knee Dwight SALMON-C [facility] 11/12/2024 Last Documented On 5 7:40AM ; [facility] Triamcinolone/Kenalog, 10mg per cc [id number] Unilateral primary osteoarthritis, right knee Dwight Bolton PA-C [facility] 07/01/2024 Last Documented On 4 5:34PM ; [facility] DRAIN/INJECT, JOINT/BURSA (RIGHT) Unilateral primary osteoarthritis, right knee Dwight SALMON-C [facility] 07/01/2024 Last Documented On 4 5:34PM ; [facility] Triamcinolone/Kenalog, 10mg per cc [id number] Unilateral primary osteoarthritis, right knee Dwight Bolton PA-C [facility] 03/25/2024 Last Documented On 4 4:24PM ; [facility] DRAIN/INJECT, JOINT/BURSA (RIGHT) Unilateral primary osteoarthritis, right knee Dwight SALMON-C [facility] 03/25/2024 Last Documented On 4 4:24PM ; [facility] Triamcinolone/Kenalog, 10mg per cc [id number] Unilateral primary osteoarthritis, right knee Dwight Bolton PA-C [facility] 11/29/2023 Last Documented On 4 11:45AM ; [facility] DRAIN/INJECT, JOINT/BURSA (RIGHT) Unilateral primary osteoarthritis, right knee Dwight SALMON-C [facility] 11/29/2023 Last Documented On 4 11:45AM ; [facility], [facility] Medical History Includes: Medical History in patient's chart No Medical History Recorded Family History Includes: Family History in patient's chart No Family History Recorded Review of Systems Review of Systems not supported for this document type No Review of Systems Recorded Mental Status No Mental Status Recorded Functional Status No Functional Status Recorded Physical Exam Physical Exam not supported for this document type No Physical Exam Recorded Allergies Includes: Active, inactive, and resolved Allergies No Known Allergies Encounters Includes: Encounters from 11/25/2023 through 11/24/2024 Encounter Provider Location Date Check-In Time Check-Out Time Diagnosis INJECTION Dwight Bolton PA-C [facility] 5 9:58AM 10:47AM INJECTION Dwight Bolton PA-C [facility] 4 8:18AM 8:49AM INJECTION Dwight Bolton PA-C [facility] 4 10:17AM 10:39AM Follow Up Dwight Bolton PA-C [facility] 4 11:05AM 11:39AM Insurance Includes: Active Insurance Policies Plan Name Member ID Group # Subscriber Relationship Effect albin Dates 1 - [facility]/[employer] RE [id number] Aldo Heath Self Clinical Notes Includes: Signed Clinical Notes starting from 07/13/2022 No Clinical Notes Recorded
--- OUTSIDE RECORDS SUMMARY | 2024-11-24 07:06 | XMS_ITS ---
Care Plan - [facility], [facility] Created on: November 24, 2024 Aldo Heath : 1955 Sex: Male Author Organization [facility] , [facility] Address [address] [place] [address] Phone Care Team Providers Care Lock And Dam Operator Name Role Phone Ifeoma SANTORO, Jorge Alberto Pantoja Unavailable [phone] Adi ORTZI, Ángela Unavailable [phone]
--- OUTSIDE RECORDS SUMMARY | 2024-11-24 07:06 | XMS_ITS | Clinical Summary ---
Author Organization [facility] Address [address] [place] [address] Phone Care Team Providers Care Transportation Operations Manager Name Role Phone Ifeoma SANTORO, Jorge Alberto Pantoja Unavailable [phone] Adi ORTIZ, Ángela Unavailable [phone] Reason for Visit and Chief Complaint The Chief Complaint is: right knee pain Problems Includes: Problems addressed during this encounter and other active Problems Current Visit Onset Date Resolved Date Provider Denys márquez Status Joint Pain in the Right Knee 08/28/2023 Dwight Bolton PA-C Active Last Documented On 2:29PM ; [facility] Plan of Treatment Fall Risk Assessment: This patient has been identified as a fall risk. Balance/gait along with postural blood pressure, vision and home fall hazards have been assessed. Medications have been reviewed, and recommendations made with regard to contributing factors for future falls. Plan of care: Consideration of vitamin D supplementation along with balance and strength training with consideration for formal physical therapy has been discussed with the patient. - Last Documented On 08/28/2023 3:46PM ; [facility] The [RIGHT] knee was prepped with 3 betadine swabs and an alcohol swab. [2cc 40mg Kenolog mixed with Marcaine and lidocaine up to 6mL] were then injected into the knee with good fill, patient tolerated procedure well. Hemostasis was obtained with a band-aid. X-rays demonstrates progressive end-stage arthritis of the right knee joint. Had a complex bunionectomy as well as diabetic ulcer on his foot about 3 years ago that significantly progressed his right knee pain because he had to use 1 of the foot kneeling scooter for about 3 months. X-rays demonstrate arthritis. Has not tried any injections prior to. Recommend injection today following up in 3 months - Last Documented On 08/28/2023 3:46PM ; [facility] Future Appointments Date Time Location Provi julieth INJECTION 02/12/2025 10:00AM [facility] wDight Bolton PA-C Last Documented On 5 10:51AM ; [facility] Instructions to patient Lose weight Last Documented On 4 3:00PM ; [facility] Assessments Includes: Assessments from this encounter Findings - Overweight - Last Documented On 08/28/2023 3:46PM ; [facility] Right knee DJD - Last Documented On 08/28/2023 3:46PM ; [facility] Instructions Includes: Instructions from this encounter Instructions to patient Lose weight Last Documented On 4 3:00PM ; [facility] Medical Equipment - Implanted Devices Includes: Current Devices No Medical Equipment Recorded Medications Includes: Medications discussed during this encounter and other current Medications Current Medications (continue as prescribed) Ezetimibe 10 MG Oral Tablet 08/24/2023 Provider: Diagnosis: Last Documented On 4 3:02PM By Oliva Gunn ; [facility] Ramipril 10 MG Oral Capsule 08/24/2023 Provider: Diagnosis: Last Documented On 4 3:02PM By Oliva Gunn ; [facility], [facility] Nystatin [id number] UNIT/ML Mouth/Throat Suspension 2023 Provider: Diagnosis: Last Documented On 4 3:02PM By Oliva Gunn ; [facility], [facility] Diclofenac Sodium 75 MG Oral Tablet Delayed Release 08/10/2023 Provider: Jessica Sidhu MD Diagnosis: Last Documented On 4 3:02PM By Oliva Gunn ; [facility] HumaLOG KwikPen 100 UNIT/ML Subcutaneous Solution Pen-injector 08/01/2023 Provider: LEONID Kamara Diagnosis: Last Documented On 4 3:02PM By Oliva Gunn ; [facility] Lantus SoloStar 100 UNIT/ML Subcutaneous Solution Pen-injector 08/01/2023 Provider: LEONID Kamara Diagnosis: Last Documented On 4 3:02PM By Oliva Gunn ; [facility] Promethazine-DM 6.25-15 MG/5ML Oral Syrup 07/29/2023 Provider: Diagnosis: Last Documented On 4 3:02PM By Oliva Gunn ; [facility] Levothyroxine Sodium 88 MCG Oral Tablet 07/20/2023 P rovider: Diagnosis: Last Documented On 4 3:02PM By Oliva Gunn ; [facility] Medications Administered Includes: Administered Medications from this encounter No Administered Medications Recorded Vital Signs Includes: Vital Signs from this encounter Vital Name 08/28/2023 02:47P Height (in) 72 Weight (lb) 270 Body Mass Index 36.6 Body Surface Area 2.4 Note: ab Last Documented: On 08/28/2023 2:59PM ; [facility] Results Includes: Results discussed during this encounter No Results Recorded For Specified Dates History of Present Illness Includes: History of Present Illness from this encounter CHANDA Heath is a 67 year old male. - Allergy list reviewed - Problem list reviewed - Medication list reviewed Social History Description Last Updated Tobacco non-user 08/28/2023 Last Documented On 4 3:46PM ; [facility] Smoking Status Unknown Procedures and Surgical History Includes: Procedures from this encounter Procedures Code Diagnosis Performing Provider Service L ocation Service Date use of tobacco assessment performed 1000F Last Documented On 4 3:00PM ; [facility] patient screened for future fall risk: documentation of any fall with injury in past year 1100F Last Documented On 4 3:00PM ; [facility] review of medications documented 1160F Last Documented On 4 3:00PM ; [facility] Medical History Includes: Medical History addressed during [...] Exam Includes: Physical Exam from this encounter Allergies Includes: Active Allergies No Known Allergies Encounters Encounter Provider Location Date Check-In Time Check-Out Time Diagnosis SECOND OPINION Dwight Bolton PA-C [facility] 08/28/19 24 2:14PM 3:44PM Overweight Insurance Includes: Active Insurance Policies Plan Name Member ID Group # Subscriber Relationship Effect albin Dates 1 - [facility]/[employer] RE [id number] Aldo Heath Self Clinical Notes Includes: Clinical Notes from this encounter * Progress note Date Encounter Last Documented by 08/28/2023 SECOND OPINION Last documented on 08/28/2023; 3:46 PM, Dwight Bolton PA-C; [facility] Active Problems & Conditions - Joint Pain in the Right Knee Subjective Which knee or hip hurts the most? Where on the hip or knee? RIGHT KNEE PAIN CENTER AND TOP OF KNEE CAP,SOME PAIN WHEN HE GOES UP AND DOWN STEEPS,HAS SOME SWELLING THAT COMES AND GOES,WHEN HE WAKES UP IN THE MORNING HE IS STFF Have you had prior knee or hip surgery?NO What medicines have you taken for the pain?TYLENOL AND IBUPROFEN What injections have you tried for the pain?NO Do you need a cane or walker to ambulate?NO Have you improved your shoes or tried a brace?NO Have you tried to lose weight?NO Chief Complaint The Chief Complaint is: Right knee pain. Referred Here Referred by. History of Present Illness Aldo Heath is a 67 year old male. - Allergy list reviewed - Problem list reviewed - Medication list reviewed Current Medication - Diclofenac Sodium 75 MG Oral Tablet Delayed Release 30 days, 0 refills - Ezetimibe 10 MG Oral Tablet 30 days, 0 refills - HumaLOG KwikPen 100 UNIT/ML Subcutaneous Solution Pen-injector 40 days, 0 refills - Lantus SoloStar 100 UNIT/ML Subcutaneous Solution Pen-injector 40 days, 0 refills - Levothyroxine Sodium 88 MCG Oral Tablet 90 days, 0 refills - Nystatin [id number] UNIT/ML Mouth/Throat Suspension 10 days, 0 refills - Promethazine-DM 6.25-15 MG/5ML Oral Syrup 12 days, 0 refills - Ramipril 10 MG Oral Capsule 30 days, 0 refills Social History Tobacco use: Tobacco non-user. Allergies - No Known Allergies Physical Findings - Vitals taken 08/28/2023 02:47 pm ab Height 72 in Weight 270 lbs Body Mass Index 36.6 kg/m2 Body Surface Area 2.4 m2 Patient alert and oriented [minimally] overweight Gait Normal Right Hip ROM normal Right Knee Skin around knee clean, dry and intact Good patellar mobility trace effusion ROM 8-122 MJT Strength [5/5] TA, [5/5] Gastroc, [5/5] Quad Palpable pulses DP/PT Tests Four views of the right knee taken today demonstrates end-stage arthritis. Medial compartment [id number] arthritis. Subchondral sclerosis medial tibial plateau. Medial osteophytes. Moderate patellofemoral DJD. 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 Balance/gait along with postural blood pressure, vision and home fall hazards have been assessed. Medications have been reviewed, and recommendations made with regard to contributing factors for future falls. Plan of care: Consideration of vitamin D supplementation along with balance and strength training with consideration for formal physical therapy has been discussed with the patient. The [RIGHT] knee was prepped with 3 betadine swabs and an alcohol swab. [2cc 40mg Kenolog mixed with Marcaine and lidocaine up to 6mL] were then injected into the knee with good fill, patient tolerated procedure well. Hemostasis was obtained with a band-aid. X-rays demonstrates progressive end-stage arthritis of the right knee joint. Had a complex bunionectomy as well as diabetic ulcer on his foot about 3 years ago that significantly progressed his right knee pain because he had to use 1 of the foot kneeling scooter for about 3 months. X-rays demonstrate arthritis. Has not tried any injections prior to. Recommend injection today following up in 3 months Notes This dictation was done with voice recognition software and may contain errors and omissions. Practice Management Use of tobacco assessment performed and patient screened for future fall risk documentation of any fall with injury in past year Review of medications documented.
--- OUTSIDE RECORDS SUMMARY | 2024-11-24 07:06 | XMS_ITS | Clinical Summary ---
Author Organization [facility] , [facility] Address [address] [place] [address] Phone Care Team Providers Care Highway Maintainer Name Role Phone Ifeoma SANTORO, Jorge Alberto Pantoja Unavailable + [phone] Ángela Joshi PA-C Unavailable [phone] Reason for Visit and Chief Complaint INJECTION Problems Includes: Problems addressed during this encounter and other active Problems All Visits Onset Date Resolved Date Provider Condition S tatus Joint Pain in the Right Knee 08/28/2023 Dwight Bolton PA-C Active Last Documented On 4 2:29PM ; [facility], [facility] Plan of Treatment Future Appointments Date Time Location Provi julieth INJECTION 02/12/2025 10:00AM [facility] Dwight Bolton PA-C Last Documented On 5 10:51AM ; [facility], [facility] Assessments Includes: Assessments from this encounter No Assessments Recorded Medical Equipment - Implanted Devices Includes: Current Devices No Medical Equipment Recorded Medications Includes: Medications discussed during this encounter and other current Medications Current Medications (continue as prescribed) Ezetimibe 10 MG Oral Tablet 08/24/2023 Provider: Diagnosis: Last Documented On 4 3:02PM By Oliva Gunn ; [facility], [facility] Ramipril 10 MG Oral Capsule 08/24/2023 Provider: Diagnosis: Last Documented On 4 3:02PM By Oliva Gunn ; [facility], [facility] Nystatin 799401 UNIT/ML Mouth/Throat Suspension 2023 Provider: Diagnosis: Last Documented On 4 3:02PM By Oliva Gunn ; [facility], [facility] Diclofenac Sodium 75 MG Oral Tablet Delayed Release 08/10/2023 Provider: Jessica Sidhu MD Diagnosis: Last Documented On 4 3:02PM By Oliva Gunn ; [facility], [facility] HumaLOG KwikPen 100 UNIT/ML Subcutaneous Solution Pen-injector 08/01/2023 Provider: LEONID Kamara Diagnosis: Last Documented On 4 3:02PM By Oliva Gunn ; [facility], [facility] Lantus SoloStar 100 UNIT/ML Subcutaneous Solution Pen-injector 08/01/2023 Provider: LEONID Kamara Diagnosis: Last Documented On 4 3:02PM By Oliva Gunn ; [facility], [facility] Promethazine-DM 6.25-15 MG/5ML Oral Syrup 07/29/2023 Provider: Diagnosis: Last Documented On 4 3:02PM By Oliva Gunn ; [facility], [facility] Levothyroxine Sodium 88 MCG Oral Tablet 07/20/2023 P rovider: Diagnosis: Last Documented On 4 3:02PM By Oliva Gunn ; [facility], [facility] Medications Administered Includes: Administered Medications from [...] 11/12/2024 Last Documented On 5 7:40AM ; [facility], [facility] Triamcinolone/Kenalog, 10mg per cc [id number] Unilateral primary osteoarthritis, right knee Dwight Bolton PA-C [facility] 11/12/2024 Last Documented On 5 7:40AM ; [facility], [facility] Medical History Includes: Medical History addressed [...] Check-Out Time Diagnosis INJECTION Dwight Bolton PA-C [facility] 5 9:58AM 10:47AM Insurance Includes: Active Insurance Policies Plan Name Member ID Group # Subscriber Relationship Effect albin Dates 1 - [facility]/[employer] RE [id number] Aldo Heath Self Clinical Notes Includes: Clinical Notes from this encounter No Clinical Notes Recorded
--- OUTSIDE RECORDS SUMMARY | 2024-11-24 07:06 | XMS_ITS | Clinical Summary ---
Author Organization [facility] , [facility] Address [address] [place] [address] Phone Care Team Providers Care Table Tender Sludge Name Role Phone Ifeoma SANTORO, Jorge Alberto Pantoja Unavailable [phone] Ángela Joshi PA-C Unavailable [phone] Reason for Visit and Chief Complaint INJECTION Problems Includes: Problems addressed during this encounter and other active Problems All Visits Onset Date Resolved Date Provider Condition S tatus Joint Pain in the Right Knee 08/28/2023 Dwight Bolton PA-C Active Last Documented On 4 2:29PM ; [facility], [facility] Plan of Treatment Future Appointments Date Time Location Provi julieth INJECTION 02/12/2025 10:00AM [facility] Dwight Bolton PA-C Last Documented On 5 10:51AM ; [facility], [facility] Assessments Includes: Assessments from this encounter No Assessments Recorded Medical Equipment - Implanted Devices Includes: Current Devices No Medical Equipment Recorded Medications Includes: Medications discussed during this encounter and other current Medications Current Medications (continue as prescribed) Ezetimibe 10 MG Oral Tablet 08/24/2023 Provider: Diagnosis: Last Documented On 4 3:02PM By Oliva Gunn ; [facility], [facility] Ramipril 10 MG Oral Capsule 08/24/2023 Provider: Diagnosis: Last Documented On 4 3:02PM By Oliva Gunn ; [facility], [facility] Nystatin [id number] UNIT/ML Mouth/Throat Suspension 2023 Provider: Diagnosis: Last Documented On 4 3:02PM By Oliva Gunn ; [facility], [facility] Diclofenac Sodium 75 MG Oral Tablet Delayed Release 08/10/2023 Provider: Jessica Sidhu MD Diagnosis: Last Documented On 4 3:02PM By Oliva Gunn ; [facility], [facility] HumaLOG KwikPen 100 UNIT/ML Subcutaneous Solution Pen-injector 08/01/2023 Provider: LEONID Kamara Diagnosis: Last Documented On 4 3:02PM By Oliva Gunn ; [facility], [facility] Lantus SoloStar 100 UNIT/ML Subcutaneous Solution Pen-injector 08/01/2023 Provider: LEONID Kamara Diagnosis: Last Documented On 4 3:02PM By Oliva Gunn ; [facility], [facility] Promethazine-DM 6.25-15 MG/5ML Oral Syrup 07/29/2023 Provider: Diagnosis: Last Documented On 4 3:02PM By Oliva Gunn ; [facility], [facility] Levothyroxine Sodium 88 MCG Oral Tablet 07/20/2023 P rovider: Diagnosis: Last Documented On 4 3:02PM By Oliva Gunn ; [facility], [facility] Medications Administered Includes: Administered Medications from this [...] primary osteoarthritis, right knee Dwight Bolton PA-C [facility] 07/01/2024 Last Documented On 4 5:34PM ; [facility], [facility] Triamcinolone/Kenalog, 10mg per cc [id number] Unilateral primary osteoarthritis, right knee Dwight Bolton PA-C [facility] 07/01/2024 Last Documented On 4 5:34PM ; [facility], [facility] Medical History Includes: Medical History addressed during [...] Check-Out Time Diagnosis INJECTION Dwight Bolton PA-C [facility] 4 8:18AM 8:49AM Insurance Includes: Active Insurance Policies Plan Name Member ID Group # Subscriber Relationship Effect albin Dates 1 - [facility]/[employer] RE [id number] Aldo Heath Self Clinical Notes Includes: Clinical Notes from this encounter No Clinical Notes Recorded
--- OUTSIDE RECORDS SUMMARY | 2024-11-24 07:06 | XMS_ITS | Clinical Summary ---
Author Organization [facility] , [facility] Address [address] [place] [address] Phone Care Team Providers Care Industrial Equipment Wirer Name Role Phone Ifeoma SANTORO, Jorge Alberto Pantoja Unavailable [phone] Ángela Joshi PA-C Unavailable [phone] Reason for Visit and Chief Complaint INJECTION Problems Includes: Problems addressed during this encounter and other active Problems All Visits Onset Date Resolved Date Provider Condition S tatus Joint Pain in the Right Knee 08/28/2023 Dwight Bolton PA-C Active Last Documented On 4 2:29PM ; [facility], [facility] Plan of Treatment Future Appointments Date Time Location Provi julieth INJECTION 02/12/2025 10:00AM [facility] Dwight Bolton PA-C Last Documented On 5 10:51AM ; [facility], [facility] Assessments Includes: Assessments from this encounter No Assessments Recorded Medical Equipment - Implanted Devices Includes: Current Devices No Medical Equipment Recorded Medications Includes: Medications discussed during this encounter and other current Medications Current Medications (continue as prescribed) Ezetimibe 10 MG Oral Tablet 08/24/2023 Provider: Diagnosis: Last Documented On 4 3:02PM By Oliva Gunn ; [facility], [facility] Ramipril 10 MG Oral Capsule 08/24/2023 Provider: Diagnosis: Last Documented On 4 3:02PM By Oliva Gunn ; [facility], [facility] Nystatin [id number] UNIT/ML Mouth/Throat Suspension 2023 Provider: Diagnosis: Last Documented On 4 3:02PM By Oliva Gunn ; [facility], [facility] Diclofenac Sodium 75 MG Oral Tablet Delayed Release 08/10/2023 Provider: Jessica Sidhu MD Diagnosis: Last Documented On 4 3:02PM By Oliva Gunn ; [facility], [facility] HumaLOG KwikPen 100 UNIT/ML Subcutaneous Solution Pen-injector 08/01/2023 Provider: LEONID Kamara Diagnosis: Last Documented On 4 3:02PM By Oliva Gunn ; [facility], [facility] Lantus SoloStar 100 UNIT/ML Subcutaneous Solution Pen-injector 08/01/2023 Provider: LEONID Kamara Diagnosis: Last Documented On 4 3:02PM By Oliva Gunn ; [facility], [facility] Promethazine-DM 6.25-15 MG/5ML Oral Syrup 07/29/2023 Provider: Diagnosis: Last Documented On 4 3:02PM By Oliva Gunn ; [facility], [facility] Levothyroxine Sodium 88 MCG Oral Tablet 07/20/2023 P rovider: Diagnosis: Last Documented On 4 3:02PM By Oliva Gunn ; [facility], [facility] Medications Administered Includes: Administered Medications [...] primary osteoarthritis, right knee Dwight Bolton PA-C [facility] 03/25/2024 Last Documented On 4 4:24PM ; [facility], [facility] Triamcinolone/Kenalog, 10mg per cc [id number] Unilateral primary osteoarthritis, right knee Dwight Bolton PA-C [facility] 03/25/2024 Last Documented On 4 4:24PM ; [facility], [facility] Medical History Includes: Medical History [...] Check-Out Time Diagnosis INJECTION Dwight Bolton PA-C [facility] 4 10:17AM 10:39AM Insurance Includes: Active Insurance Policies Plan Name Member ID Group # Subscriber Relationship Effect albin Dates 1 - [facility]/[employer] RE [id number] Aldo Heath Self Clinical Notes Includes: Clinical Notes from this encounter No Clinical Notes Recorded
--- NOTE | 2024-11-24 07:10 | CT_ITS ---
FINAL REPORT TECHNIQUE: Axial images were obtained of the thoracic spine by computed tomography. Coronal and sagittal reconstruction process performed. This study was performed with techniques to keep radiation doses as low as reasonably achievable (ALARA). Individualized dose reduction techniques using automated exposure control or adjustment of mA and/or kV according to the patient's size were employed. CLINICAL HISTORY: chronic mid and low back pain COMPARISON: None FINDINGS: CT THORACIC SPINE: There are extensive flowing anterior osteophytes present in the right anterior middle and lower thoracic spine. No significant compression deformity of a thoracic vertebral bodies is noted. There are multiple small noncalcified nodules present in the left lower lobe, the largest measuring 4 mm in size, best seen on image #42 of series 3. IMPRESSION: No acute bony abnormality is identified. Extensive flowing anterior osteophytes, paracentral to the right, throughout the mid and lower thoracic spine. Multiple small noncalcified nodules in the left lower lobe, measuring up to [address] CT of the chest for further evaluation. Reviewed, Interpreted and Dictated by Carlos Cardoso MD Transcribed by Zonia Humphries Authenticated and [facility]
--- NOTE | 2024-11-24 07:10 | CT_ITS ---
FINAL REPORT TECHNIQUE: Axial images were obtained of the lumbar spine by computed tomography. Coronal and sagittal reconstruction process performed. This study was performed with techniques to keep radiation doses as low as reasonably achievable (ALARA). Individualized dose reduction techniques using automated exposure control or adjustment of mA and/or kV according to the patient''s size were employed. CLINICAL HISTORY: .chronic mid and low back pain COMPARISON: None FINDINGS: CT LUMBAR SPINE: Vacuum phenomenon is present at the L1 to through L4-5 levels. There is minimal spondylolisthesis of L4 on L5. L1-2: A mild annular bulge is present with mild bilateral neural foraminal narrowing. L2-3: A moderate annular bulge is present with endplate hypertrophy and posterolateral disc protrusions. There is moderate bilateral neural foraminal narrowing. L3-4: A moderate annular bulge is present with endplate hypertrophy eccentric to the left, asymmetric degenerative hypertrophy of the left L3-4 facet, moderate canal stenosis, and severe left neural foraminal narrowing. L4-5: A moderate annular bulge is present with bilateral facet hypertrophy, severe canal stenosis, and moderate to severe bilateral neural foraminal narrowing. L5-S1: A moderate annular bulge is present with bilateral facet hypertrophy, moderate central canal stenosis, and moderate to severe bilateral neural foraminal narrowing. IMPRESSION: Multilevel lumbar degenerative change is present, with severe left neural foraminal narrowing at the L3-4 level, and moderate to severe bilateral neural foraminal narrowing at the L4-5 and L5-S1 levels. There is severe canal stenosis present at the L4-5 level. Reviewed, Interpreted and Dictated by Carlos Cardoso MD Transcribed by Zonia Humphries Authenticated and [facility]
== END 2024-11-24 23:59 | disposition home or self-care (01) ==
LOC: RAD 07:04
PROVIDERS: PCP Physician Assistant; Visit Provider Neurological Surgery
DX: M48.061 Spinal stenosis, lumbar region without neurogenic claudication (principal)
CPT/HCPCS: 72128; 72131

== ENCOUNTER 2025-01-07 10:45 | Outpatient (CLI) | payer MEDICARE, SELFPAY ==
--- OUTSIDE RECORDS SUMMARY | 2024-11-11 09:00 | XMS_ITS | Encounter Summary ---
Author Organization [facility] Address [address] [id number] Care Team Providers Care Tobacco Checkout Clerk Name Role Phone Ángela Joshi Primary Care Provider [phone] Reason for Referral * Imaging (Routine) - Authorized Specialty Diagnoses / Procedures Referred By Contac t Referred To Contact Diagnoses Spinal stenosis, lumbar region without neurogenic claudication Procedures CT Thoracic Spine wo IV Contrast CT Thoracic Spine wo IV Contrast Adelaida Krishna MD [address] [address] Phone: tel: fax: Referral ID Status Reason Start Date Expiration Date V isits Requested Visits Authorized [id number] Authorized 11/11/2024 05/13/2026 1 1 * Imaging (Routine) - Authorized Specialty Diagnoses / Procedures Referred By Contac t Referred To Contact Diagnoses Spinal stenosis, lumbar region without neurogenic claudication Procedures CT Lumbar Spine wo IV Contrast CT Lumbar Spine wo IV Contrast Adelaida Krishna MD [address] [facility] [address] [place] [address] Phone: tel: fax: Referral ID Status Reason Start Date Expiration Date V isits Requested Visits Authorized [id number] Authorized 11/11/2024 05/13/2026 1 1 * Consultation (Routine) - Authorized Specialty Diagnoses / Procedures Referred By Contac t Referred To Contact Physical Therapy Diagnoses Spinal stenosis, lumbar region without neurogenic claudication Adelaida Krishna MD [address] [address] Phone: tel: fax: Referral ID Status Reason Start Date Expiration Date Visits Requested Visits Authorized [id number] Authorized Consult and Treat 11/11/2024 05/13/2026 1 1 Scheduling Instructions Back pain w/ neurogenic claudication Reason for Visit * Reason Comments Consult * Consultation (Routine) - Closed Specialty Diagnoses / Procedures Referred By Contac t Referred To Contact Neurosurgery Diagnoses Radiculopathy, lumbar region Spinal stenosis of lumbar region, unspecified whether neurogenic claudication present Neuroforaminal stenosis of lumbar spine Ángela Joshi PA [address] [facility] [address] [place] [address] Phone: tel: fax: Referral ID Status Reason Start Date Expiration Date V isits Requested Visits Authorized [id number] Closed Specialty Services Required 10/15/2024 04/16/2026 1 1 Encounter Details Date Type Department Care Team (Late st Contact Info) Description 11/11/2024 9:00 AM EDT Consult [place] [facility] [address], [address] [place] [phone] Adelaida Krishna MD [address] [phone] Spinal stenosis, lumbar region without neurogenic claudication (Primary Dx); Radiculopathy, lumbar region; Spinal stenosis of lumbar region, unspecified whether neurogenic claudication present; Neuroforaminal stenosis of lumbar spine Social History Tobacco Use Types Packs/Day Years Used Date Smoking Tobacco: Never Passive Smoke Exposure: Past Smokeless Tobacco: Never Alcohol Use Standard Drinks/Week Comments Yes 0 (1 standard drink = 0.6 oz pur e alcohol) rarely. PHQ-2 Answer Date Recorded Patient Health Questionnaire-2 Score 0 10/14/2024 PHQ-2A Answer Date Recorded Patient Health Questionnaire-2 Score 0 08/01/2022 Sex and Gender Information Value Date Recorded Sex Assigned at Not on file Legal Sex Male 6:07 PM EDT Gender Identity Not on file Sexual Orientation Not on file documented as of this encounter Last Filed Vital Signs Vital Sign Reading Time Taken Comments Blood Pressure 131/93 11/11/2024 8:51 AM EDT Pulse - - Temperature - - Respiratory Rate - - Oxygen Saturation - - Inhaled Oxygen Concentration - - Weight 121 kg (267 lb) 11/11/2024 8:51 AM EDT Height 182.9 cm (6') 11/11/2024 8:51 AM EDT Body Mass Index 36.21 11/11/2024 8:51 AM EDT documented in this encounter Miscellaneous Notes * Progress Notes - Ledy Goodrich MD - 11/11/2024 9:00 AM EDT Neurosurgery Clinic Note ? Visit Reason: Lumbar Neurogenic claudication HPI: Aldo Heath is a 69 y.o. male with PMH of DM with diabetic neuropathy, R ACL tear (receives injections), R hip OA, and reportedly ???DISH of the spine.?? Chronic low back pain worsened over 6-8 months, exacerbated by standing/walking, relieved by sitting or leaning forward. Pain localized to low back, with intermittent radiation to anterior/posterior thighs--not extending to feet. Also endorses R hip pain, claudication-type leg discomfort (equal bilaterally), and wobbly gait. No neck/UE symptoms. No bowel/bladder incontinence, though reports urgency (likely IBS/BPH-related). Claudication distance: ~10-15 minutes. Tried PT 1 year ago with good response. No prior injections. Non-smoker, not on anticoagulation. Exam: R ACL reflex limited by hx of tear. LLE reflexes 2+, UEs 1+, equivocal L Clark. Full strength, intact sensation. Gait cautious. Imaging: - MRI: Multilevel DDD, severe R lat recess stenosis @L2-3, severe bilat foraminal stenosis @L3-4 and L4-5, mod foraminal stenosis, mild D scoliosis. - XR: Poor quality, nondiagnostic. Visit Vitals BP (!) 131/93 Ht 1.829 m (6') Wt 121 kg (267 lb) BMI 36.21 kg/m?? Smoking Status Never BSA 2.48 m?? Orders Placed This Encounter Procedures XR Lumbar Spine 4+ Views w Flexion Extension XR Scoliosis Entire Spine [address] Lumbar Spine wo IV Contrast CT Thoracic Spine wo IV Contrast Ambulatory referral to Physical Therapy Assessment and Plan:? Aldo Heath is a 69 y.o. male with Chronic neurogenic claudication (10-15 min) with multilevel lumbar stenosis (severe L2-5), likely DISH; stable exam, conservative path pursued pending imaging. Plan: [] CT T/L spine: evaluate for DISH [] Flex/ext lumbar XR [] Standing scoliosis series [] PT script provided [] F/u in 6 wks post-PT to discuss likely referral to complex spine for surgical eval (patient willcall us back if interested in surg then). Follow-up information was provided and the patient knows to call the clinic with any questions or concerns. Ledy Goodrich MD PGY-2, Neurosurgery Cosigned by Adelaida Krishna MD at 11/17/2024 11:59 AM EDT Associated attestation - Adelaida Krishna MD - 11/17/2024 11:59 AM EDT I saw and evaluated the patient with the resident/fellow. I discussed the case with the resident/fellow and agree with the findings and plan as documented. documented in this encounter Plan of Treatment Upcoming Encounters Date Type Department Care Team (Late st Contact Info) Description 02/03/2025 10:00 AM EDT Office Visit [facility] Endocrinology [address] [place] [phone] Nicole Mann MD [address] [place] [phone] 02/13/2025 8:15 AM EDT Office Visit [facility] Medicine Specialties [address], [address] [place] [phone] Edith Maya, DO [address] [place] [address] Scheduled Orders Name Type Priority Associated Diagnoses Orde r Schedule CT Lumbar Spine wo IV Contrast Imaging Routine Spinal stenosis, lumbar region without neurogenic claudication Expected: 11/11/2024 (Approximate), Expires: 05/14/2026 CT Thoracic Spine wo IV Contrast Imaging Routine Spinal stenosis, lumbar region without neurogenic claudication Expected: 11/11/2024 (Approximate), Expires: 05/14/2026 Scheduled Referrals Name Type Priority Associated Diagnoses Orde r Schedule Ambulatory referral to Physical Therapy Outpatient Referral Routine Spinal stenosis, lumbar region without neurogenic claudication Expected: 11/11/2024 (Approximate), Expires: 05/13/2026 documented as of this encounter Results * XR Lumbar Spine 4+ Views w Flexion Extension (11/11/2024 11:02 AM EDT) Anatomical Region Laterality Modality Spine, L-spine Digital Radiogra phy Impressions 11/11/2024 11:14 AM EDT 1. Severe degenerative disc changes at L2-L3 and moderate at L1-L2, L3-L4 and L4-L5. 2. Minimal posterior subluxation at L2-L3 and L3-L4 and minimal anterior subluxation at L4-L5 without instability in flexion or extension. 3. Levoconvex curve with the apex at L2 and dextroconvex curve with the apex at L4. 4. Moderate degenerative disc changes at C4-C5 and C5-C6. CRITICAL RESULT: No. COMMUNICATION: Per this written report. Drafted by Sammy White MD on 11/11/2024 11:09 AM Final report signed by Sammy White MD on 11/11/2024 11:14 AM Narrative 11/11/2024 11:14 AM EDT CLINICAL INDICATION: back pain TECHNIQUE: XR SCOLIOSIS ENTIRE SPINE 2 OR 3 VIEWS, XR LUMBAR SPINE 4 VIEWS TO INCLUDE FLEXION EXTENSION COMPARISON: None. FINDINGS: 4 views of the lumbar spine show disc space narrowing at L1-L2 through L4-L5 with severe degenerative disc changes at L2-L3. Minimal posterior subluxation at L2- L3 and L3-L4. Minimal anterior subluxation at L4-L5. No instability in flexion or extension. No fracture or bone destruction. Levoconvex curve with the apex at L1-L2. Osteoarthritis of the sacroiliac joints. 3 views of the spine show levoconvex curve of the lumbar spine with the apex at L2 and dextroconvex curve with the apex at L4. Left iliac wing projects superior to the right. Coronal balance is neutral. Sagittal balance is slightly positive. Moderate degenerative disc changes at C4-C5 and C5-C6. Sequelae of diffuse idiopathic skeletal hyperostosis in the thoracic and lumbar spine. Sequelae of left grade 3 acromioclavicular separation. No fracture or bone destruction. Cardiac silhouette is appropriate in size and configuration. Lung parenchyma is blurred due to motion artifact. No gross abnormality in the long. Procedure Note Sammy White MD - 11/11/2024 CLINICAL INDICATION: back pain TECHNIQUE: XR SCOLIOSIS ENTIRE SPINE 2 OR 3 VIEWS, XR LUMBAR SPINE 4 VIEWS TO INCLUDEFLEXION EXTENSION COMPARISON: None. FINDINGS: 4 views of the lumbar spine show disc space narrowing at L1-L2 throughL4-L5 with severe degenerative disc changes at L2-L3. Minimal posteriorsubluxation at L2-L3 and L3-L4. Minimal anterior subluxation at L4-L5. Noinstability in flexion or extension. No fracture or bone destruction.Levoconvex curve with the apex at L1-L2. Osteoarthritis of the sacroiliacjoints. 3 views of the spine show levoconvex curve of the lumbar spine with theapex at L2 and dextroconvex curve with the apex at L4. Left iliac wingprojects superior to the right. Coronal balance is neutral. Sagittalbalance is slightly positive. Moderate degenerative disc changes at C4-C5and C5-C6. Sequelae of diffuse idiopathic skeletal hyperostosis in thethoracic and lumbar spine. Sequelae of left grade 3 acromioclavicularseparation. No fracture or bone destruction. Cardiac silhouette isappropriate in size and configuration. Lung parenchyma is blurred due tomotion artifact. No gross abnormality in the long. IMPRESSION: 1.Severe degenerative disc changes at L2-L3 and moderate at L1-L2, L3-L4and L4- L5. 2.Minimal posterior subluxation at L2-L3 and L3-L4 and minimal anteriorsubluxation at L4-L5 without instability in flexion or extension. 3.Levoconvex curve with the apex at L2 and dextroconvex curve with theapex at L4. 4.Moderate degenerative disc changes at C4-C5 and C5-C6. CRITICAL RESULT: No. COMMUNICATION: Per this written report. Drafted by Sammy White MD on 11/11/2024 11:09 AM Final report signed by Sammy White MD on 11/11/2024 11:14 AM us Adelaida Krishna MD IMG XR PROCEDURE S Final Result * XR Scoliosis Entire Spine 2 or 3 Views (11/11/2024 11:02 AM EDT) Anatomical Region Laterality Modality Spine Digital Radiogra phy Impressions 11/11/2024 11:14 AM EDT 1. Severe degenerative disc changes at L2-L3 and moderate at L1-L2, L3-L4 and L4-L5. 2. Minimal posterior subluxation at L2-L3 and L3-L4 and minimal anterior subluxation at L4-L5 without instability in flexion or extension. 3. Levoconvex curve with the apex at L2 and dextroconvex curve with the apex at L4. 4. Moderate degenerative disc changes at C4-C5 and C5-C6. CRITICAL RESULT: No. COMMUNICATION: Per this written report. Drafted by Sammy White MD on 11/11/2024 11:09 AM Final report signed by Sammy White MD on 11/11/2024 11:14 AM Narrative 11/11/2024 11:14 AM EDT CLINICAL INDICATION: back pain TECHNIQUE: XR SCOLIOSIS ENTIRE SPINE 2 OR 3 VIEWS, XR LUMBAR SPINE 4 VIEWS TO INCLUDE FLEXION EXTENSION COMPARISON: None. FINDINGS: 4 views of the lumbar spine show disc space narrowing at L1-L2 through L4-L5 with severe degenerative disc changes at L2-L3. Minimal posterior subluxation at L2- L3 and L3-L4. Minimal anterior subluxation at L4-L5. No instability in flexion or extension. No fracture or bone destruction. Levoconvex curve with the apex at L1-L2. Osteoarthritis of the sacroiliac joints. 3 views of the spine show levoconvex curve of the lumbar spine with the apex at L2 and dextroconvex curve with the apex at L4. Left iliac wing projects superior to the right. Coronal balance is neutral. Sagittal balance is slightly positive. Moderate degenerative disc changes at C4-C5 and C5-C6. Sequelae of diffuse idiopathic skeletal hyperostosis in the thoracic and lumbar spine. Sequelae of left grade 3 acromioclavicular separation. No fracture or bone destruction. Cardiac silhouette is appropriate in size and configuration. Lung parenchyma is blurred due to motion artifact. No gross abnormality in the long. Procedure Note Sammy White MD - 11/11/2024 CLINICAL INDICATION: back pain TECHNIQUE: XR SCOLIOSIS ENTIRE SPINE 2 OR 3 VIEWS, XR LUMBAR SPINE 4 VIEWS TO INCLUDEFLEXION EXTENSION COMPARISON: None. FINDINGS: 4 views of the lumbar spine show disc space narrowing at L1-L2 throughL4-L5 with severe degenerative disc changes at L2-L3. Minimal posteriorsubluxation at L2-L3 and L3-L4. Minimal anterior subluxation at L4-L5. Noinstability in flexion or extension. No fracture or bone destruction.Levoconvex curve with the apex at L1-L2. Osteoarthritis of the sacroiliacjoints. 3 views of the spine show levoconvex curve of the lumbar spine with theapex at L2 and dextroconvex curve with the apex at L4. Left iliac wingprojects superior to the right. Coronal balance is neutral. Sagittalbalance is slightly positive. Moderate degenerative disc changes at C4-C5and C5-C6. Sequelae of diffuse idiopathic skeletal hyperostosis in thethoracic and lumbar spine. Sequelae of left grade 3 acromioclavicularseparation. No fracture or bone destruction. Cardiac silhouette isappropriate in size and configuration. Lung parenchyma is blurred due tomotion artifact. No gross abnormality in the long. IMPRESSION: 1.Severe degenerative disc changes at L2-L3 and moderate at L1-L2, L3-L4and L4- L5. 2.Minimal posterior subluxation at L2-L3 and L3-L4 and minimal anteriorsubluxation at L4-L5 without instability in flexion or extension. 3.Levoconvex curve with the apex at L2 and dextroconvex curve with theapex at L4. 4.Moderate degenerative disc changes at C4-C5 and C5-C6. CRITICAL RESULT: No. COMMUNICATION: Per this written report. Drafted by Sammy White MD on 11/11/2024 11:09 AM Final report signed by Sammy White MD on 11/11/2024 11:14 AM Adelaida Krishna MD IMG XR PROCEDURE S Final Result documented in this encounter Visit Diagnoses Diagnosis Spinal stenosis, lumbar region without neurogenic claudication- Primary Radiculopathy, lumbar region Thoracic or lumbosacral neuritis or radiculitis, unspecified Spinal stenosis of lumbar region, unspecified whether neurogenic claudication present Neuroforaminal stenosis of lumbar spine Spinal stenosis, lumbar region without neurogenic claudication Spinal stenosis, lumbar region without neurogenic claudication documented in this encounter Additional Health Concerns Assessment Noted Time A fall risk assessment has been complete d for the patient 11/11/2024 8:52 AM EDT A Body Mass Index follow-up plan has been documented for the patient 11/17/2024 11:59 AM EDT documented as of this encounter Care Teams Tobacco Checkout Clerk Relationship Specialty Start Date End Date Ángela Joshi PA [address] [place] [address] PCP - General 12/10/20 documented as of this encounter
--- OUTSIDE RECORDS SUMMARY | 2024-11-11 10:19 | XMS_ITS | Encounter Summary ---
Author Organization Healthcare Address [address] [place] [address] Care Team Providers Care Social Sciences Instructor Name Role Phone Ángela Joshi Primary Care Provider [phone] Encounter Details Date Type Department Care Team (Latest Contact Info) Description 11/11/2024 10:19 AM EDT - 11/11/2024 11:59 PM EDT [facility] [address], [address] [place] [phone] Spinal stenosis, lumbar region without neurogenic claudication Discharge Disposition: Home or Self Care Social History Tobacco Use Types Packs/Day Years [...] on file documented as of this encounter Medications at Time of Discharge Aspirin Buf,CaCarb-MgCa rb-MgO, 81 MG tablet 12/13/2020 cholecalciferol (Vitamin D-3) 50 MCG (2000 UT) capsule Take 1 capsule (2,000 Units) by mouth. ciprofloxacin-d examethasone (CiproDEX) otic suspension 11/06/2023 Continuous Blood Gluc Stablehand (FreeStyle Nadja 14 Day [place]) device Use TID to test glucose, Diag E11.9 1 each 1 06/18/2023 Continuous Glucose Sensor (FreeStyle Nadja 14 Day Sensor) miscIndications :Type 2 diabetes mellitus with other specified complication, with long-term current use of insulin ([facility]) Apply new sensor every 14 day 2 each 5 08/01/2024 diclofenac (Voltaren) 75 MG EC tablet Take 1 tablet (75 mg) by mouth in the morning and 1 tablet (75 mg) before bedtime. Do not crush, chew, or split. 180 tablet 1 10/14/2024 esomeprazole (NexIUM) [address] capsule Take 1 capsule (20 mg) by mouth daily. Do not open capsule. ezetimibe (Zetia) 10 MG tablet 04/19/2021 hydroCHLOROthia zide (Microzide) 12.5 MG capsule 05/01/2021 insulin lispro (HumaLOG KWIKPEN) 100 UNIT/ML injection penIndications: Type 2 diabetes mellitus with other specified complication, with long-term current use of insulin ([facility]) INJECT 30 UNITS SQ BREAKFAST, 40 UNITS AT LUNCH, AND 42 UNITS AT DINNER 100 mL 3 01/15/2024 Lantus SoloStar 100 UNIT/ML injection penIndications: Type 2 diabetes mellitus with other specified complication, with long-term current use of insulin ([facility]) INJECT 85 UNITS SUBCUTANEOUSLY EVERY MORNING 90 mL 1 11/03/2024 levothyroxine (Synthroid, Levoxyl) 75 MCG tablet 04/20/2023 lidocaine (Lidoderm) 5 % patch if needed. 10/11/2020 omeprazole OTC (PriLOSEC OTC) 20 MG EC tablet 03/05/2013 pen needle, diabetic (B-D UF III MINI PEN NEEDLES) 31G X 5 MM misc USE TO INJECT INSULIN FOUR TIMES A DAY 400 each 1 11/03/2024 ramipril (Altace) 10 MG capsule 04/20/2021 vit A,C and Z-ecigmu-zlghhj ls (Ocuvite) tablet HYDROcodone-rochelle taminophen ([place]) 5-325 MG tabletIndicatio ns:Chronic pain disorder Take 1 tablet (5 mg of hydrocodone) by mouth every 12 hours as needed for severe pain. 60 tablet 10/14/2024 documented as of this encounter Plan of Treatment Upcoming Encounters Date Type Department Care Team (Late st Contact Info) Description 02/03/2025 10:00 AM EDT Office Visit [facility] Endocrinology [address] [place] [phone] Nicole Mann MD [address] [place] [phone] 02/13/2025 8:15 AM EDT [facility] Medicine [facility] [address] [place] [address] Edith Maya, DO [address] [place] [address] documented as of this encounter Procedures Procedure Name Priority Date/Time Associated Diagnosis Comments XR LUMBAR SPINE 4 VIEWS TO INCLUDE FLEXION EXTENSION Routine 11/11/2024 11:02 AM EDT Spinal stenosis, lumbar region without neurogenic claudication documented in this encounter Results * XR Lumbar Spine [...] Diagnosis Spinal stenosis, lumbar region without neurogenic claudication documented in this encounter Additional Health Concerns Assessment Noted Time A fall risk assessment has been complete d for the patient 11/11/2024 8:52 AM EDT A Body Mass Index follow-up plan has been documented for the patient 11/17/2024 11:59 AM EDT documented as of this encounter Care Teams Social Sciences Instructor Relationship Specialty Start Date End Date Ángela Joshi PA [address] [place] [address] [place] [address] PCP - General 12/10/20 documented as of this encounter
--- OUTSIDE RECORDS SUMMARY | 2024-11-11 10:19 | XMS_ITS | Encounter Summary ---
Author Organization Healthcare Address [address] [place] [address] Care Team Providers Care Retail Client Solutions Analyst Name Role Phone Ángela Joshi Primary Care Provider [phone] Encounter Details Date Type Department Care Team (Latest Contact Info) Description 11/11/2024 10:19 AM EDT - 11/11/2024 11:59 PM EDT [facility] Encounter [facility] [address], [address] [place] [phone] Spinal stenosis, lumbar region without neurogenic claudication [...] (CiproDEX) otic suspension 11/06/2023 Continuous Blood Gluc Surface Room Shop Optician (FreeStyle Nadja 14 Day [place]) device Use TID to test glucose, Diag E11.9 1 each 1 06/18/2023 Continuous Glucose Sensor (FreeStyle Nadja 14 Day Sensor) miscIndications :Type 2 diabetes mellitus with other specified complication, with long-term current use of insulin ([facility]) Apply new sensor every 14 day 2 [...] complication, with long-term current use of insulin ([facility]) INJECT 30 UNITS SQ BREAKFAST, 40 UNITS AT LUNCH, AND 42 UNITS AT DINNER 100 mL 3 01/15/2024 Lantus SoloStar 100 UNIT/ML injection penIndications: Type 2 diabetes mellitus with other specified complication, with long-term current use of insulin ([facility]) INJECT 85 UNITS SUBCUTANEOUSLY EVERY MORNING 90 [...] 10 MG capsule 04/20/2021 vit A,C and C-zgiyti-vdppmp ls (Ocuvite) tablet HYDROcodone-rochelle taminophen ([place]) 5-325 MG tabletIndicatio ns:Chronic pain disorder Take 1 tablet (5 mg of hydrocodone) by mouth every 12 hours as needed for severe pain. 60 tablet 10/14/2024 documented as of this encounter Plan of Treatment Upcoming Encounters Date Type Department Care Team (Late st Contact Info) Description 02/03/2025 10:00 AM EDT Office Visit [facility] Endocrinology [address] [place] [phone] Nicole Mann MD [address] [place] [phone] 02/13/2025 8:15 AM EDT Office Visit [facility] Medicine Specialties [address] [place] [address] Edith Maya, DO [address] [place] [address] documented as of this encounter Procedures Procedure Name Priority Date/Time Associated Diagnosis Comments XR SCOLIOSIS ENTIRE SPINE 2 OR 3 VIEWS Routine 11/11/2024 11:02 AM EDT Spinal stenosis, lumbar region without neurogenic claudication documented in this encounter Results * XR Scoliosis Entire Spine 2 or [...] documented as of this encounter Care Teams Retail Client Solutions Analyst Relationship Specialty Start Date End Date Ángela Joshi PA [address] [place] [address] [facility] [address] [place] [address] PCP - General 12/10/20 documented as of this encounter
--- OUTSIDE RECORDS SUMMARY | 2024-12-02 10:00 | XMS_ITS ---
Author Organization [facility] Address [address] [place] [id number] Care Team Providers Care Anthropology Professor Name Role Phone Nadir Mcnamara Primary Care Provider REASON FOR VISIT burning in urination Encounters Encounter Location Date Provider Diagnosis [facility] [address] [place] [id number] 12/02/2024 Nadir Mcnamara Plan Of Treatment Next Appt Details Provider Name:Ángela gutierres, 01/07/2025 10:00:00 AM, [address], [address], [place], [id number], Progress Notes * YUMIKO HEATHOB: [birth year] (69 yo M)Acc No.[id number]:12/02/2024 Progress Notes Patient: YUMIKO SILVEIRA Provider: Nadir Mcnamara M.D. :1955 A ge:69 Y S ex:Male Date:12/02/2024 Address:[address] [id number] Subjective: * Chief Complaints: * 1 . Burning in urination. * Medical History: Objective: * Vitals: Assessment: Plan: * Treatment: * Billing Information: * Visit Code: * Procedure Codes: * Electronic signature of Nadir Mcnamara MD on 01/07/2025 at 10:52 AM EDT Sign off status: Pending * Provider: Nadir Mcnamara M.D. Date: 0 12/02/2024 Generated for Bertha munoz/Bertha/Joby on: 0 01/07/2025 10:52 AM EDT
--- OUTSIDE RECORDS SUMMARY | 2024-12-05 06:30 | XMS_ITS ---
Author Organization [facility] Address [address] [place] [id number] Care Team Providers Care Canvas Baster Name Role Phone Nadir Mcnamara Primary Care Provider Ángela Joshi Unavailable [phone] Allergies Allergen (clinical drug ingredient) Drug/Non Drug Allergy documented on EMR Reaction Allergy Type Onset Date Status atorvastatin Lipitor myalgias Drug Allergy Acti ve azithromycin Zithromax Unknown Drug Allergy Acti ve metformin metFORMIN leg pain Drug Allergy Active Penicillin Unknown Drug Allergy Active Results Component Value Reference Range Notes Urinalysis - Inhouse Reviewed date:12/11/2024 02:57:01 PM Interpretation: Performing Lab: Notes/Report: Color/Clarity yellow Leuk neg Nitrite neg Urobili 3.2 Protein neg pH 6.0 Blood neg Sp. Gr. 1.020 Ketone trace Bili neg Gluc neg CBC Venipuncture (in house) Reviewed date:12/11/2024 02:58:20 PM Interpretation: Performing Lab: Notes/Report: wbc 8.1 3.5 - 10 lymph 25.7 15 - 50 mid 7.2 2 - 15 gran 67.1 35 - 80 rbc 4.31 3.5 - 5.5 hgb 14.2 11.5 - 16.5 hct 43.0 35 - 55 mcv 99.5 75 - 100 mch 32.9 25 - 35 mchc 33.0 31 - 38 platlet 196 100 - 400 P-Culture, Urine Reviewed date:12/12/2024 11:08:58 AM Interpretation:No growth Performing Lab: Notes/Report: CLIA: [id number] Chase De La Cruz MD, Supervisor Customer Services [address] [place] [address] Vic Patel C, [place] [address] Test performed by [facility] Specimen Source Urine - Void Culture, Urine See Below Final Report : No growth P-PSA Reviewed date:12/12/2024 11:07:51 AM Interpretation:Normal Performing Lab: Notes/Report: CLIA: [id number] Chase De La Cruz MD, Supervisor Customer Services [address] [place] [address] Vic Patel C, [place] [address] Test performed by [facility] PSA 0.26 <4.00 ng/mL Please note this is an ultrasensitive PSA assay with a lower limit of detection of 0.014 ng/mL. This test is performed by the [facility] ECLIA methodology. Values obtained with different assay methods or kits cannot be directly compared. REASON FOR VISIT possible UTI Medications Medication SIG (Take, Route, Frequency, Duration) Notes Start Date End Date Status Metaxalone 800 MG 1 tablet Orally Thre e times a day for 30 days Active Ezetimibe 10 MG TAKE 1 TABLET BY [facility] ONCE DAILY for 90 Active Ramipril 10 MG TAKE 1 CAPSULE BY [facility] ONCE DAILY for 30 Active Levothyroxine Sodium 88 MCG 1 tablet in the morning on an empty stomach Orally Once a day 09/24/2024 Active hydroCHLOROthiazide 12.5 MG TAKE 1 TABLE T BY MOUTH ONCE DAILY for 90 Active BD Pen Needle Short U/F 31 GUAGE X 5/16 INCH 1 Q DAY Active HumaLOG 100 UNIT/ML 30 units in the am, 40 units at lunch, 40 units at dinner subcutaneously tid Active Meloxicam 15 MG 1 tablet Orally Once a day Active HYDROcodone-Acetaminophen 5-325 MG 1 tab(s) orally daily, prn Active Tonya Allergy 180 MG 1 tab(s) orally o nce a day Active Lancets DIRECTED ONCE A D AY OR DIRECTED Active Aspirin 81 MG 1 tab(s) orally once a day for 30 day(s) Active ORTHOTICS DIRECTED 04/01/2013 Active TRUE-TRAK TEST STRIPS TRUE-TRAK DIRECTED ONCE A DAY OR DIRECTED 01/25/2012 Active DIABETIC INSOLES DIRECTED 04/01/2013 Active Lantus SoloStar 100 UNIT/ML 75 units subcutaneously Active Vital Signs Blood pressure systolic 140 mm Hg 12/06/19 25 Blood pressure diastolic 80 mm Hg 025 Heart Rate 65 /min 12/05/2024 Height 72 in 12/05/2024 Weight 259 lbs 12/05/2024 BMI 35.12 kg/m2 12/05/2024 Encounters Encounter Location Date Provider Diagnosis [facility] [address] [facility] [address] [facility] [address] [place] [id number] 12/05/2024 Ángela Joshi Dysuria R30.0 Assessments Encounter Date Diagnosis (ICD Code) Assessment Notes Treatment Notes Treatment Clinical Notes Section Notes 12/05/2024 Dysuria (ICD-10 - R30.0) Plan Of Treatment Next Appt Details Follow Up: via phone to repo rt test results, Reason: Provider Name:Ángela Pachecodario y, 01/07/2025 10:00:00 AM, [address], [place] [id number], Progress Notes * YUMIKO HEATHOB: [birth year] (69 yo M)Acc No.[id number]:12/05/2024 Progress Notes Patient: YUMIKO SILVEIRA Provider: VIKY Oliveira :1955 A ge:69 Y S ex:Male Date:12/05/2024 Address:[facility] [place], [place] Pcp:Nadir Mcnamara Subjective: * Chief Complaints: * 1 . possible UTI. * HPI: U rology: 69 year old male presents with c/o burning sensation P t sts the burning started a few weeks ago. Pt sts that prostate cancer does run in his family. c/o urine stream is P t sts his urine stream is a bit off than it usually would be. Denies : frequent urination. * ROS: D ERMATOLOGY: no R oniel. n o H paxton. G ASTROENTEROLOGY: no N ausea. n o V omiting. U ROLOGY: no D ifficulty urinating. n o B lood in urine. * Medical History: A llergic Rhinitis, Type 2 Diabetes, Hypercholestrolemia. * Surgical History: D enies Past Surgical History. * Hospitalization/Major Diagno stic Procedure: D enies Past Hospitalization. * Family History: F ather: alive. M other: . 1 brother(s) , 1 sister(s) . 2 son(s) . . * Social History: C URRENT TOBACCO USE S moking Status: Patient does NOT smoke. C affeine: yes, frequency:tea pop. Home smoke detector use: yes. Marital Status: . Past smoking status: no, Smoking status: Does not smoke. * Medications: T aking Lantus SoloStar 100 UNIT/ML Solution Pen-injector 75 units subcutaneously , Taking DIABETIC INSOLES DIRECTED , Taking ORTHOTICS CUSTOM DIRECTED , Taking TRUE-TRAK TEST STRIPS TRUE-TRAK TEST STRIPS DIRECTED ONCE A DAY OR DIRECTED , Taking Lancets DIRECTED ONCE A DAY OR DIRECTED , Taking Aspirin 81 MG Tablet Delayed Release 1 tab(s) orally once a day , Taking BD Pen Needle Short U/F 31 GUAGE X 5/16 INCH 1 Q DAY , Taking HumaLOG 100 UNIT/ML Solution 30 units in the am, 40 units at lunch, 40 units at dinner subcutaneously tid , Taking HYDROcodone-Acetaminophen 5-325 MG Tablet 1 tab(s) orally daily, prn , Taking Tonya Allergy 180 MG Tablet 1 tab(s) orally once a day , Taking Meloxicam 15 MG Tablet 1 tablet Orally Once a day , Taking Levothyroxine Sodium 88 MCG Tablet 1 tablet in the morning on an empty stomach Orally Once a day , Taking hydroCHLOROthiazide 12.5 MG Tablet TAKE 1 TABLET BY MOUTH ONCE DAILY , Taking Ezetimibe 10 MG Tablet TAKE 1 TABLET BY MOUTH ONCE DAILY , Taking Ramipril 10 MG Capsule TAKE 1 CAPSULE BY MOUTH ONCE DAILY , Taking Metaxalone 800 MG Tablet 1 tablet Orally Three times a day , Medication List reviewed and reconciled with the patient * Allergies: P enicillin, Zithromax, metFORMIN: leg pain, Lipitor: myalgias. Objective: * Vitals: W t: 259, Temp: 97.9, BP: 140/80, HR: 65, Nurse: aubrey, Ht: 72, BMI:35.12. * Examination: G eneral Examination: General Appearance: N AD. Chest: n ormal shape and expansion. Heart: R SR. Lungs: c lear to auscultation. Abdomen: b owel sounds present , soft , nontender. Back: n o CVA tenderness. Assessment: * Assessment: 1. D ysuria - R30.0 (Primary) Plan: * Treatment: Value Reference Range C ulture, Urine See Below - * S pecimen Source Urine - Void - * Vanessa, Ina 12/11/2024 02: 57:46 PM > PSA is normal, urine culture negative. sent to Andree to inform pt.Rosa Black 12/11/2024 03:27:57 PM >left vm ?LAB: P-PSA (Collection Date & Time - 12/05/2024 09:30 AM)?Normal* Value Reference Range P SA 0.26 <4.00 - ng/mL * Ina Mendez 12/11/2024 02: 57:46 PM > PSA is normal, urine culture negative. sent to Andree to inform pt.Rosa Black 12/11/2024 03:27:47 PM >left vmMagenkrystin Yenifer 12/12/2024 11:07:33 AM >pt informed ?LAB: Urinalysis - Inhouse (Collection Date & Time - 12/05/2024)* Value Reference Range C olor/Clarity yellow * L euk neg * N itrite neg * U robili 3.2 * P rotein neg * p H 6.0 * B lood neg * S p. Gr. 1.020 * K etone trace * B deisi neg * G padmini neg * Rosa Black 12/05/2024 03:50 :47 PM > Provider reviewed results while patient in office. ?LAB: CBC Venipuncture (in house) (Collection Date & Time - 12/05/2024)* Value Reference Range w bc 8.1 3.5 - 10 * l ymph 25.7 15 - 50 * m id 7.2 2 - 15 * g ran 67.1 35 - 80 * r bc 4.31 3.5 - 5.5 * h gb 14.2 11.5 - 16.5 * h ct 43.0 35 - 55 * m cv 99.5 75 - 100 * m ch 32.9 25 - 35 * m chc 33.0 31 - 38 * p latlet 196 100 - 400 * Rosa Black 12/05/2024 10:45 :41 AM > Provider reviewed results while patient in office. Ina Mendez 12/11/2024 02:57:46 PM > PSA is normal, urine culture negative. sent to Andree to inform pt. * Procedure Codes: G 2211 Complex e/[place], [address] Urinalysis, no micro, [address] CBC WITH AUTO DIFF, 53211 VENIPUNCT, ROUTINE* * Follow Up: v ia phone to report test results * Billing Information: * Visit Code: 64108 Office Visit, Est Pt., Level 3. * Procedure Codes: G2211 Complex e/[place]. [address] Urinalysis, no micro. [address]21 CBC WITH AUTO DIFF. 60016 VENIPUNCT, ROUTINE*. * Electronic signature of VIKY Mcginnis on 01/07/2025 at 10:52 AM EDT Sign off status: Pending * Provider: VIKY Oliveira Date: 0 12/05/2024 Generated for Kemali ng/Famartitag/eTransmitting on: 0 01/07/2025 10:52 AM EDT History and Physical Notes * HPI (History of Present Illness) Category Sub-Category Detail Notes Category Not es Urology frequent urination burning sensation Pt sts the burning s tarted a few weeks ago. Pt sts that prostate cancer does run in his family urine stream is Pt sts his urine str eam is a bit off than it usually would be Examination Category Sub-Category Detail Notes Category Not es General Examination Heart: RSR Lungs: clear to auscultatio n Abdomen: bowel sounds present , soft , nontender General Appearance: NAD Back: no CVA tenderness Chest: normal shape and exp ansion
--- OUTSIDE RECORDS SUMMARY | 2025-01-07 10:52 | XMS_ITS | Encounter Summary ---
Author Organization Healthcare Address [address] [place] [address] Care Team Providers Care Physician Coder Name Role Phone Ángela Joshi Primary Care Provider [phone] Reason for Visit * Reason Comments Med Refill Encounter Details Date Type Department Care Team (Late st Contact Info) Description 12/14/2024 [facility]ill [facility] [address] [place] [address] Jessica Sidhu MD [address] [place] [address] Chronic pain disorder (Primary Dx) Social History Tobacco Use Types Packs/Day Years [...] on file documented as of this encounter Miscellaneous Notes * Telephone Encounter - Jason Pena, PharmD - 12/15/2024 7:49 AM EDT Refill request does not meet protocol. Sending to clinic for review. Additional info: Controlled substance. Hydrocodone/APAP documented in this encounter Plan of Treatment Upcoming Encounters Date Type Department Care Team (Late st Contact Info) Description 02/03/2025 10:00 AM EDT Office Visit [facility] Endocrinology [address] [place] [phone] Nicole Mann MD [address] [place] [address] 02/13/2025 8:15 AM EDT [facility] Visit [facility] [address] [place] [address] Edith Maya, DO [address] [place] [address] documented as of this encounter Visit Diagnoses Diagnosis Chronic pain disorder- Primary Chronic pain syndrome documented in this encounter Additional Health Concerns Assessment Noted Time A fall risk assessment has been complete d for the patient 11/11/2024 8:52 AM EDT A Body Mass Index follow-up plan has been documented for the patient 11/17/2024 11:59 AM EDT documented as of this encounter Care Teams Physician Coder Relationship Specialty Start Date End Date Ángela Joshi PA [address] [facility] [address] [place] [address] PCP - General 12/10/20 documented as of this encounter
--- OUTSIDE RECORDS SUMMARY | 2025-01-07 10:52 | XMS_ITS | Encounter Summary ---
Author Organization Healthcare Address [address] [place] [address] Care Team Providers Care Substation Technician Name Role Phone Ángela Joshi Primary Care Provider [phone] Encounter Details Date Type Department Care Team (Latest Contact Info) Description 11/11/2024 Travel Social History Tobacco Use Types Packs/Day Years [...] on file documented as of this encounter Plan of Treatment Upcoming Encounters Date Type Department Care Team (Late st Contact Info) Description 02/03/2025 10:00 AM EDT Office Visit [facility] [address] [place] [address] Nicole Mann MD [address] [facility] [address] [place] [address] 02/13/2025 8:15 AM EDT Office Visit [facility] [address] [place] [address] Edith Maya DO [address] [place] [address] documented as of this encounter Visit Diagnoses Not on filedocumented in this encounter Additional Health Concerns Assessment Noted Time A fall risk assessment has been complete d for the patient 11/11/2024 8:52 AM EDT A Body Mass Index follow-up plan has been documented for the patient 11/17/2024 11:59 AM EDT documented as of this encounter Care Teams Substation Technician Relationship Specialty Start Date End Date Ángela Joshi PA [address] [facility] [address] [place] [address] PCP - General 12/10/20 documented as of this encounter
--- OUTSIDE RECORDS SUMMARY | 2025-01-07 10:52 | XMS_ITS | Encounter Summary ---
Author Organization [facility] Address [address] [place] [address] Care Team Providers Care Advertising Manager Name Role Phone Ángela Joshi Primary Care Provider [phone] Encounter Details Date Type Department Care Team (Late st Contact Info) Description 11/11/2024 Orders Only [facility] [address] [place] [address] Nicole Mann MD [address] [address] Social History Tobacco Use Types Packs/Day Years [...] Description 02/03/2025 10:00 AM EDT Office Visit [facility] [address] [place] [address] Nicole Mann MD [address] [place] [address] 02/13/2025 8:15 AM EDT [facility] Visit [facility] [address], [address] [place] [address] Edith Maya, DO [address] [place] [address] documented as of this encounter Visit Diagnoses Not on filedocumented in this encounter Additional Health Concerns Assessment Noted Time A fall risk assessment has been complete d for the patient 11/11/2024 8:52 AM EDT A Body Mass Index follow-up plan has been documented for the patient 11/17/2024 11:59 AM EDT documented as of this encounter Care Teams Advertising Manager Relationship Specialty Start Date End Date Ángela Joshi PA [address] [facility] [address] [place] [address] PCP - General 12/10/20 documented as of this encounter
--- OUTSIDE RECORDS SUMMARY | 2025-01-07 10:52 | XMS_ITS | Clinical Summary ---
Author Organization [facility] Address [address] [place] [address] Care Team Providers Care Mannequin Decorator Name Role Phone Ángela Joshi Primary Care Provider [phone] Allergies Active Allergy Reactions Criticality Noted Date Comments Atorvastatin Nausea 05/20/2024 Metformin Other - please docum ent in the comment field Low 10/14/2024 Penicillin G Unknown - Patient st ates they do not know rxn details Low 10/14/2024 Penicillins Other - please docum ent in the comment field Low 01/08/2013 Passing out Medications ramipril (Altace) 10 MG capsule 04/20/20 21 Active hydroCHLOROth iazide (Microzide) 12.5 MG capsule 05/01/20 21 Active ezetimibe (Zetia) 10 MG tablet 04/19/20 21 Active Aspirin Buf,CaCarb-Mg Carb-MgO, 81 MG tablet 12/14/19 21 Active lidocaine (Lidoderm) 5 % patch if needed. 10/12/19 21 Active omeprazole OTC (PriLOSEC OTC) 20 MG EC tablet 03/05/20 13 Active levothyroxine (Synthroid, Levoxyl) 75 MCG tablet 04/20/20 23 Active Continuous Blood Gluc Educational Technician (YouBeQBStyle Nadja 14 Day Victor) device Use TID to test glucose, Diag E11.9 1 each 1 06/18/20 23 Active ciprofloxacin -dexamethason e (CiproDEX) otic suspension 11/06/19 24 Active insulin lispro (HumaLOG KWIKPEN) 100 UNIT/ML injection penIndication s:Type 2 diabetes mellitus with other specified complication, with long-term current use of insulin ([facility]) INJECT 30 UNITS SQ BREAKFAST, 40 UNITS AT LUNCH, AND 42 UNITS AT DINNER 100 mL 3 01/15/20 24 Active cholecalcifer ol (Vitamin D-3) 50 MCG (2000 UT) capsule Take 1 capsule (2,000 Units) by mouth. Active vit A,C and H-lbwyjx-uxxq rals (Ocuvite) tablet Active esomeprazole (NexIUM) [address] capsule Take 1 capsule (20 mg) by mouth daily. Do not open capsule. Active Continuous Glucose Sensor (FreeStyle Nadja 14 Day Sensor) miscIndicatio ns:Type 2 diabetes mellitus with other specified complication, with long-term current use of insulin ([facility]) Apply new sensor every 14 day 2 each 5 08/01/19 25 Active diclofenac (Voltaren) 75 MG EC tablet Take 1 tablet (75 mg) by mouth in the morning and 1 tablet (75 mg) before bedtime. Do not crush, chew, or split. 180 tablet 1 10/15/19 25 Active Lantus SoloStar 100 UNIT/ML injection penIndication s:Type 2 diabetes mellitus with other specified complication, with long-term current use of insulin ([facility]) INJECT 85 UNITS SUBCUTANEOUSLY EVERY MORNING 90 mL 1 11/04/19 25 Active pen needle, diabetic (B-D UF III MINI PEN NEEDLES) 31G X 5 MM [facility] USE TO INJECT INSULIN FOUR TIMES A DAY 400 each 1 11/04/19 25 Active HYDROcodone-a cetaminophen (Wyola) 5-325 MG tabletIndicat ions:Chronic pain disorder Take 1 tablet by mouth every 12 hours as needed for severe pain. 60 tablet 12/16/19 25 Active HYDROcodone-a cetaminophen (Wyola) 5-325 MG tabletIndicat ions:Chronic pain disorder Take 1 tablet by mouth every 12 hours as needed for severe pain. 60 tablet 11/14/19 25 2024 Discontinued Active Problems Problem Noted Date Diagnosed Date Cauda equina syndrome 02/27/2023 Primary hypertension 08/11/2021 Other hyperlipidemia 08/11/2021 Other specified hypothyroidism 08/11/2021 DISH (diffuse idiopathic skeletal hyperostosis) 02/16/2021 Primary generalized (osteo)arthrosis 02/16/2021 Overview (05/01/2022): Regulatory Update April 2022 Obesity 05/10/2016 Type 2 diabetes mellitus with circulatory disord er 12/31/2015 Resolved Problems Problem Noted Date Diagnosed Date Resolved Date Primary osteoarthritis of knees, bilateral 02/16/2021 02/16/2021 Encounters Date Type Department Care Team Description 12/14/2024 Refill [facility] [address], [address] [place] [address] Jessica Sidhu MD Chronic pain disorder (Primary Dx) 11/13/2024 Refill [facility] [address], [address] [place] [address] Jessica Sidhu MD Chronic pain disorder (Primary Dx) 11/11/2024 10:19 AM EDT - 11/11/2024 11:59 PM EDT Hospital Encounter [facility] [address], [address] [place] [address] Spinal stenosis, lumbar region without neurogenic claudication Discharge Disposition: Home or Self Care 11/11/2024 10:19 AM EDT - 11/11/2024 11:59 PM EDT Hospital Encounter [facility] [address], [address] [place] [address] Spinal stenosis, lumbar region without neurogenic claudication Discharge Disposition: Home or Self Care 11/11/2024 9:00 AM EDT Consult [place] [facility] [address], [address] [place] [address] Adelaida Krishna MD Spinal stenosis, lumbar region without neurogenic claudication (Primary Dx); Radiculopathy, lumbar region; Spinal stenosis of lumbar region, unspecified whether neurogenic claudication present; Neuroforaminal stenosis of lumbar spine 11/11/2024 [facility] [place] [address] Nicole Mann MD 11/11/2024 Telephone [facility] Endocrinology [address] [place] [address] Nicole Mann MD 11/11/2024 Travel 11/01/2024 Refill [facility] Endocrinology [address] [place] [address] Nicole Mann MD Type 2 diabetes mellitus with other specified complication, with long-term current use of insulin ([facility]) 10/20/2024 Telephone [place] [address] [place] [address] Adelaida Krishna MD [facility] - Patient Message (Returning a call ) 10/14/2024 8:00 AM EDT Office Visit [facility] [address] [facility], 2nd [place] [address] Jessica Sidhu MD DISH (diffuse idiopathic skeletal hyperostosis) (Primary Dx); Generalized osteoarthritis of multiple sites; Spinal stenosis of lumbar region, unspecified whether neurogenic claudication present; BMI 36.0-36.9,adult 10/14/2024 Telephone [place] [address] [facility], [address] [place] [address] Barrett Dempsey, JaydeD 10/14/2024 Travel 10/07/2024 Telephone [facility] Endocrinology [address] [place] [address] Nicole Mann MD [facility] Clinical Concern/Question from Last 3 Months Immunizations Immunization Administration Dates Next Due Pneumococcal 20-marianna Conj Vaccine 09/19/2024 Pneumococcal Conjugate PCV 13 10/12/2021 Pneumococcal Polysaccharide PPV23 09/05/2023,01/2018 Tdap 10/03/2017 Zoster, live 02/26/2019 Family History Medical History Relation Name Comments Hyperlipidemia Brother 1 Hypertension Brother 2 Cancer Father Hyperlipidemia Father Hypertension Father Kidney disease Father Diabetes Mother Hyperlipidemia Mother Hypertension Mother Kidney disease Mother Cancer Other 1 Diabetes Other 2 Heart disease Other 3 Conversions - Other Son Heroin a ddiction Relation Name Status Comments Brother 1 Brother 2 Father Mother Other 1 Other 2 Other 3 Son Social History Tobacco Use Types Packs/Day Years Used Date Smoking Tobacco: Never Passive Smoke Exposure: Past Smokeless Tobacco: Never Tobacco Cessation:Counseling Given: Not Answered Alcohol Use Standard Drinks/Week Comments Yes 0 [...] on file Sexual Orientation Not on file Last Filed Vital Signs Vital Sign Reading Time Taken Comments Blood Pressure 131/93 11/11/2024 8:51 AM EDT Pulse 54 10/14/2024 9:17 AM EDT Temperature 36.7 C (98.1 F) 10/14/2024 8:16 AM EDT Respiratory Rate 18 10/14/2024 8:16 AM EDT Oxygen Saturation 95% 10/14/2024 8:16 AM EDT Inhaled Oxygen Concentration - - Weight 121 kg (267 lb) 11/11/2024 8:51 AM EDT Height 182.9 cm (6') 11/11/2024 8:51 AM EDT Body Mass Index 36.21 11/11/2024 8:51 AM EDT Plan of Treatment Upcoming Encounters Date Type Department Care Team (Late st Contact Info) Description 02/03/2025 10:00 AM EDT Office Visit [facility] Endocrinology [address] [place] [address] Nicole Mann MD [address] [place] [address] 02/13/2025 8:15 AM EDT Office Visit [facility] [address], [address] [place] [address] Edith Maya DO [address] [facility] [address] [place] [address] Health Maintenance Due Date Last Done Comments [facility]-Hepatitis C Screening 1955 [facility]-Medicare Annual Wellness (AWV) 1955 [facility]-Infant/Child/Adol SDOH Screenings 1955 Diabetes: Dental Exam 1965 [facility]- SDOH Screenings 1973 [facility]-Adult SDOH Screenings 1973 CT Colonography 2000 Colonoscopy 2000 FIT-DNA 2000 FIT 2000 FOBT 2000 Sigmoidoscopy 2000 [facility]-Colorectal Cancer Screening 2000 [facility]-RSV Vaccine: 60+ Years or (1 - Risk 60-74 years 1-dose series) 2015 [facility]-Zoster Vaccines (2 of 3) 04/23/2019 02/26/2019 [facility]-AMNLC-15 Vaccine (2 - Hubert risk series) 11/03/2020 10/06/2020 [facility]-Diabetes: Hemoglobin A1C 07/14/2024, 09/11/2023, 12/19/2022, Additional history exists [facility]-Influenza Vaccine (Season Ended) 2025 [facility]-Depression Screening 10/14/2025 10/14/2024 [facility]-DTaP,Tdap,and Td Vaccines (2 - Td or Tdap) 10/04/2027 10/03/2017 [facility]-Pneumococcal Vaccine: 50+ Years Completed 09/19/2024, 09/05/2023, 10/12/2021, Additional history exists [facility]-Obesity Intervention Completed 025, 10/14/2024, 10/01/2024, Additional history exists HPV Vaccines Aged Out No longer eligi ble based on patient's age to complete this topic [facility]-HIB Vaccines Aged Out No longer e ligible based on patient's age to complete this topic [facility]-Hepatitis A Vaccines Aged Out No longer eligible based on patient's age to complete this topic [facility]-IPV Vaccines Aged Out No longer e ligible based on patient's age to complete this topic [facility]-Rotavirus Vaccines Aged Out No lo nger eligible based on patient's age to complete this topic Procedures Procedure Name Priority Date/Time Associated Diagnosis Comments XR LUMBAR SPINE 4 VIEWS TO INCLUDE FLEXION EXTENSION Routine 11/11/2024 11:02 AM EDT Spinal stenosis, lumbar region without neurogenic claudication XR SCOLIOSIS ENTIRE SPINE 2 OR 3 VIEWS Routine 11/11/2024 11:02 AM EDT Spinal stenosis, lumbar region without neurogenic claudication POCT GLYCOSYLATED HEMOGLOBIN (HGB A1C) Routine 01/15/2024 10:57 AM EDT Type 2 diabetes mellitus with other specified complication, with long-term current use of insulin ([facility]) from Last 3 Months or Most Recently Relevant to Health Maintenance Results * XR Lumbar Spine 4+ Views [...] IMG XR PROCEDURE S Final Result * POCT glycosylated hemoglobin (Hb A1C) (01/15/2024 10:57 AM EDT) POCT Hemoglobin A1C 8.2 <5.7% Non-Diabet ic [facility] Kit Lot Number [id number] [facility] Kit Expiration Date 09/2025 HEALTHCARE [facility] Blood Venous blood specimen / Unknown 01/15/2024 10:57 AM EDT Nicole Mann MD POINT OF CARE TEST ENTER/E DIT ORDERABLES Final Result Performing Organization Address City/State/[facility] Co de Phone Number [facility] [address] [place] [address] from Last 3 Months or Most Recently Relevant to Health Maintenance Insurance [facility] [place] [address] Care Teams Mannequin Decorator Relationship Specialty Start Date End Date Ángela Joshi PA [address] [place] [address] PCP - General 12/10/20
--- OUTSIDE RECORDS SUMMARY | 2025-01-07 10:52 | XMS_ITS | Encounter Summary ---
Author Organization Healthcare Address [address] [place] [address] Care Team Providers Care Linux Kernel Engineer Name Role Phone Ángela Joshi Primary Care Provider [phone] Reason for Visit * Reason Comments Med Refill Encounter Details Date Type Department Care Team (Late st Contact Info) Description 11/13/2024 Refill [facility] [address] [place] [address] Jessica Sidhu MD [address] [place] [address] Chronic pain disorder (Primary Dx) [...] Telephone Encounter - Jason Pena, PharmD - 11/13/2024 12:46 PM EDT Refill request does not meet protocol. Sending to clinic for review. Additional info: Controlled substance. Hydrocodone/apap documented in this encounter Plan of Treatment Upcoming Encounters Date Type Department Care Team (Late st Contact Info) Description 02/03/2025 10:00 AM EDT Office Visit [facility] Endocrinology [address] [place] [phone] Nicole Mann MD [address] [place] [address] 02/13/2025 8:15 AM EDT Office Visit [facility] Medicine Specialties [address], [address] [place] [address] Edith Maya, DO [address] [place] [address] documented as of this encounter Visit Diagnoses Diagnosis Chronic pain disorder- Primary Chronic pain syndrome documented in this encounter Additional Health Concerns Assessment Noted Time A fall risk assessment has been complete d for the patient 11/11/2024 8:52 AM EDT A Body Mass Index follow-up plan has been documented for the patient 11/17/2024 11:59 AM EDT documented as of this encounter Care Teams Linux Kernel Engineer Relationship Specialty Start Date End Date Ángela Joshi PA [address] [facility] [address] [place] [address] PCP - General 12/10/20 documented as of this encounter
--- OUTSIDE RECORDS SUMMARY | 2025-01-07 10:52 | XMS_ITS | Encounter Summary ---
Author Organization [facility] Address [address] [place] [address] Care Team Providers Care Agri Business Agent Name Role Phone Ángela Joshi Primary Care Provider [phone] Reason for Visit * Reason Comments Med Refill Encounter Details Date Type Department Care Team (Late st Contact Info) Description 08/09/2021 Refill [facility] [address] [place] [address] Nicole Mann MD [address] [address] Social History Tobacco Use Types Packs/Day Years Used Date Smoking Tobacco: Never PHQ-2 Answer Date Recorded Patient Health Questionnaire-2 Score 0 05/17/2021 Sex and Gender Information Value Date Recorded Sex Assigned at Not on file Legal Sex Male 6:07 PM EDT Gender Identity Not on file Sexual Orientation Not on file COVID-19 Exposure Response Date Recorded In the last month, have you been in contact with someone who was confirmed or suspected to have Coronavirus / COVID-19? No / Unsure 08/11/2021 7:20 AM EST documented as of this encounter Plan of Treatment Upcoming Encounters Date Type Department Care Team (Late st Contact Info) Description 02/03/2025 10:00 AM EDT [facility] [address] [place] [address] Nicole Mann MD [address] [place] [address] 02/13/2025 8:15 AM EDT [facility] Visit [facility] [address] [place] [address] Edith Maya, [address] [place] [address] documented as of this encounter Visit Diagnoses Not on filedocumented in this encounter Additional Health Concerns Assessment Noted Time A fall risk assessment has been complete d for the patient 05/17/2021 10:58 AM EDT documented as of this encounter Care Teams Agri Business Agent Relationship Specialty Start Date End Date Ángela Joshi PA [address] [facility] [address] [place] [address] PCP - General 12/10/20 documented as of this encounter
--- OUTSIDE RECORDS SUMMARY | 2025-01-07 10:52 | XMS_ITS | Encounter Summary ---
Author Organization [facility] Address [address] [place] [address] Care Team Providers Care House Superintendent Name Role Phone Ángela Joshi Primary Care Provider [phone] Reason for Visit * Reason Comments Med Refill Encounter Details Date Type Department Care Team (Late st Contact Info) Description 09/13/2023 Refill [facility] [address] [place] [address] Nicole Mann MD [address] [address] Type 2 diabetes mellitus with other specified complication, with long-term current use of insulin ([facility]) Social History Tobacco Use Types Packs/Day Years Used Date Smoking Tobacco: Never Smokeless Tobacco: Never Alcohol Use Standard Drinks/Week Comments Yes 0 (1 standard drink = 0.6 oz pur e alcohol) rarely. PHQ-2 Answer Date Recorded Patient Health Questionnaire-2 Score 0 08/01/2022 PHQ-2A Answer Date Recorded Patient Health Questionnaire-2 [...] 02/03/2025 10:00 AM EDT Office Visit [facility] End[facility]ology [address] [place] [address] Nicole Mann MD [address] [place] [address] 02/13/2025 8:15 AM EDT Office Visit [place] [facility] [address] [place] [address] Edith Maya, DO [address] [place] [address] documented as of this encounter Visit Diagnoses Diagnosis Type 2 diabetes mellitus with other specified complication, with long-term current use of insulin ([facility]) documented in this encounter Additional Health Concerns Assessment Noted Time A fall risk assessment has been complete d for the patient 02/27/2023 11:11 AM EDT A Body Mass Index follow-up plan has been documented for the patient 09/11/2023 12:09 PM EST documented as of this encounter Care Teams House Superintendent Relationship Specialty Start Date End Date Ángela Joshi PA [address] [place] [address] PCP - General 12/10/20 documented as of this encounter
--- OUTSIDE RECORDS SUMMARY | 2025-01-07 10:53 | XMS_ITS | Encounter Summary ---
Author Organization Healthcare Address [address] [place] [address] Care Team Providers Care Ballistics Tester Name Role Phone Ángela Joshi Primary Care Provider [phone] Encounter Details Date Type Department Care Team (Late st Contact Info) Description 11/11/2024 Telephone [facility] Endocrinology [address] [place] [address] Nicole Mann MD [address] [address] Social History Tobacco Use Types [...] encounter Miscellaneous Notes * Telephone Encounter - Hoa Best - 11/11/2024 1:40 PM EDT Spoke with patient's about Lantus rx from [facility]. Assistance for $10 for Lantus was relayed, along with expected time of today to go through with insurance. documented in this encounter Plan of Treatment Upcoming Encounters Date Type Department Care Team (Late st Contact Info) Description 02/03/2025 10:00 AM EDT Office Visit [facility] Endocrinology [address] [place] [phone] Nicole Mann MD [address] [place] [phone] 02/13/2025 8:15 AM EDT Office Visit [facility] [address] [place] [address] Edith Maya, DO [address] [place] [address] documented as of this encounter Visit Diagnoses Not on filedocumented in this encounter Additional Health Concerns Assessment Noted Time A fall risk assessment has been complete d for the patient 11/11/2024 8:52 AM EDT A Body Mass Index follow-up plan has been documented for the patient 11/17/2024 11:59 AM EDT documented as of this encounter Care Teams Ballistics Tester Relationship Specialty Start Date End Date Ángela Joshi PA [address] [facility] [address] [place] [address] PCP - General 12/10/20 documented as of this encounter
--- OUTSIDE RECORDS SUMMARY | 2025-01-07 10:53 | XMS_ITS | Patient Health Record ---
Author [facility] Address [address] [place] [id number] Care Team Providers Care Pin Sorter And Bagger Name Role Phone Nadir Mcnamara Primary Care Provider JuniorÁngela dhillon Unavailable [phone] Allergies Allergen (clinical drug ingredient) Drug/Non Drug Allergy documented on EMR Reaction Allergy Type Onset Date Status atorvastatin Lipitor myalgias Drug Allergy Acti ve azithromycin Zithromax Unknown Drug Allergy Acti ve metformin metFORMIN leg pain Drug Allergy Active Penicillin Unknown Drug Allergy Active Results Component Value Reference Range Notes CBC Venipuncture (in house) Reviewed date:12/11/2024 02:58:20 [...] growth Performing Lab: Notes/Report: Test performed by [facility] [address] [place] [address] , [address], [place] [address] Chase De La Cruz MD, Dining Room Hostess CLIA: [id number] Specimen Source Urine - Void Culture, Urine See Below Final Report : No growth P-PSA Reviewed date:12/12/2024 11:07:51 AM Interpretation:Normal Performing Lab: Notes/Report: Test performed by [facility] [address] [place] [address] [place] [address] Chase De La Cruz MD, Dining Room Hostess CLIA: [id number] PSA 0.26 <4.00 ng/mL Please note this is an ultrasensitive PSA assay with a lower limit of detection of 0.014 ng/mL. This test is performed by the [facility] ECLIA methodology. Values obtained with different assay methods or kits cannot be directly compared. Glycohemoglobin A1c (in hous e) Reviewed date:03/14/2024 11:27:21 AM Interpretation:7.8 Performing Lab: Notes/Report: 7.8 glycohemoglobin 7.8% 5 - 6.5 % P-T4 Free (thyroxine) Reviewed date:03/14/2024 09:24:11 AM Interpretation: Normal Performing Lab: Notes/Report: CLIA: [id number] Chase De La Cruz MD, Dining Room Hostess [address] [place] [address] [place] [address] Test performed by [facility] Thyroxine Free (free T4) 1.17 0.86-1.76 ng/dL P-TSH Reviewed date:03/14/2024 09:24:20 AM Interpretation: Normal Performing Lab: Notes/Report: Test performed by [facility] [address] [place] [address] [place] [address] Chase De La Cruz MD, Dining Room Hostess CLIA: [id number] TSH 0.72 0.43-5.25 mU/L CBC Venipuncture (in house) Reviewed date:06/19/2024 12:53:47 PM Interpretation: Performing Lab: Notes/Report: wbc 5.8 3.5 - 10 lymph 30.0 15 - 50 mid 6.3 2 - 15 gran 63.7 35 - 80 rbc 3.96 3.5 - 5.5 hgb 13.0 11.5 - 16.5 hct 39.3 35 - 55 mcv 99.4 75 - 100 mch 32.8 25 - 35 mchc 33.0 31 - 38 platlet 172 100 - 400 Glycohemoglobin A1c (in hous e) Reviewed date:06/22/2024 10:50:13 PM Interpretation:7.5% Performing Lab: Notes/Report: 7.5% glycohemoglobin 7.5% 5 - 6.5 % P-Comprehensive Metabolic Pa neymar (CMP) Reviewed date:06/22/2024 10:50:13 PM Interpretation:gluc 187 Performing Lab: Notes/Report: CLIA: [id number] Chase De La Cruz MD, Dining Room Hostess [address] [place] [address] , [place] [address] Test performed by [facility] Sodium 141 135-145 mmol/L Potassium 4.5 3.5-5.3 mmol/L Chloride 102 97-108 mmol/L CO2 28 22-32 mmol/L Glucose 187 65-99 mg/dL BUN 15 8-23 mg/dL Creatinine 1.13 0.70-1.30 mg/dL Calcium 10.4 8.6-10.4 mg/dL eGFR by Creatinine 70 >59 mL/min/1.73m2 Protein 6.8 6.0-8.3 g/dL Albumin 4.4 3.5-5.3 g/dL Alkaline Phosphatase 110 40-129 IU/L ALT (SGPT) 23 <5-55 IU/L AST (SGOT) 24 <5-46 IU/L Bilirubin, Total 0.4 <0.2-1.2 mg/dL A/G Ratio 1.8 1.1-2.5 P-T4 Free (thyroxine) Reviewed date:06/22/2024 10:50:13 PM Interpretation:Normal Performing Lab: Notes/Report: Test performed by [facility] [address] [place] [address] , [place] [address] Chase De La Cruz MD, Dining Room Hostess CLIA: [id number] Thyroxine Free (free T4) 1.29 0.86-1.76 ng/dL P-Lipid Panel Reviewed date:06/22/2024 10:50:13 PM Interpretation:hdl 33 Performing Lab: Notes/Report: Test performed by [facility] [address] [place] [address] , [place] [address] Chase De La Cruz MD, Dining Room Hostess CLIA: [id number] Cholesterol 134 <200 mg/dL Triglycerides 120 <150 mg/dL HDL Cholesterol 33 >39 mg/dL Cholesterol / HDL Ratio 4.06 0.00-4.99 Ratio Non-HDL Cholesterol 101 <130 mg/dL LDL Cholesterol (Calculation) 77 <130 mg/dL LDL Cholesterol Levels* Less than 100 mg/dL Optimal 100 to 129 mg/dL Near Optimal/ Above Optimal 130 to 159 mg/dL Borderline High 160 to 189 mg/dL High 190 mg/dL and above Very High * Categories as recommended by the 2004 ATPIII guidelines LDL/HDL Ratio 2.3 <3.3 Ratio LDL Cholesterol Patient History Test Date: 01/11/2023 LDL Results: 91 Units: mg/dL % Change: - Test Date: 12/12/2023 LDL Results: 99 Units: mg/dL % Change: +8% Test Date: 06/19/2024 LDL Results: 77 Units: mg/dL % Change: -22% P-TSH Reviewed date:06/22/2024 10:50:13 PM Interpretation:Normal Performing Lab: Notes/Report: Test performed by [facility] [address] [place] [address] , [address], [place] [address] Chase De La Cruz MD, Dining Room Hostess CLIA: [id number] TSH 1.14 0.43-5.25 mU/L P-Vitamin D 25-Hydroxy Reviewed date:06/22/2024 10:50:13 PM Interpretation:32.9 Performing Lab: Notes/Report: Test performed by [facility] [address] [place] [address] , [address], [place] [address] Chase De La Cruz MD, Dining Room Hostess CLIA: [id number] Vitamin D 25-Hydroxy 32.9 30.0-100.0 ng/mL Interpretation of Vitamin D 25 OH: < 20 ng/mL - Deficiency 20 - 29 ng/mL - Insufficiency 30 - 100 ng/mL - Sufficiency > 100 ng/mL - Super-therapeutic- toxicity may occur above this level. Clinical correlation required. H-TSH Reviewed date:09/24/2024 08:52:56 AM Interpretation:Normal Performing Lab: Notes/Report: TSH 1.24 0.465-4.68 uIU/mL H-CBC Reviewed date:09/24/2024 08:52:56 AM Interpretation:rbc 4.04, hgb 13.4, hct 39.9, mcv 99, mch 33, mpv 11 Performing Lab: Notes/Report: WBC 6.5 4.8-10.8 K/mm3 RBC 4.04 4.60-6.20 M/mm3 HGB 13.4 14.1-18.0 g/dL HCT 39.9 42.0-52.0 % MCV 98.8 80-94 fl MCH 33.2 27.0-31.2 pg MCHC 33.6 31.8-35.4 g/dL RDW 11.8 11.5-17.5 % PLT 157 142-424 K/mm3 MPV 11.2 7.4-10.4 fl NE% 62.3 37.0-80.0 % LY% 25.0 10-50 % MO% 9.4 1.7-9.3 % EO% 2.5 0.1-12.0 % BA% 0.6 0.1-2.0 % NE# 4.1 1.8-7.8 K/mm3 LY# 1.6 0.7-4.5 K/mm3 MO# 0.6 0.1-1.0 K/mm3 EO# 0.2 0.0-0.4 K/mm3 BA# 0.0 0-0.2 K/mm3 H-VITAMIN D Reviewed date:09/24/2024 08:52:56 AM Interpretation:44 Performing Lab: Notes/Report: TVITD 44.0 30-100 ng/mL Deficient <20 ng/mL Insufficient 20-30 ng/mL Sufficient 30-100 ng/mL Potential Toxicity >100 ng/mL H-Lipid Panel Reviewed date:09/24/2024 08:52:57 AM Interpretation:trigs 168, dldl 91, hdl 37, chol/hdl 4.2 Performing Lab: Notes/Report: Patient Fasting? Y TRIG 168 30-150 mg/dl CHOL 156 140-200 mg/dl DLDL 90.86 100-129 mg/dL VLDL 34 0-40 mg/dL HDL 37 40-60 mg/dl CHLHDL 4.2 1-3.5 H-CMP Reviewed date:09/24/2024 08:52:57 AM Interpretation:co2- 33, gluc 224, a/g 1.9, alk phos 127 Performing Lab: Notes/Report: NA 138 136-145 mmol/L K 4.4 3.5-5.1 mmoL/L CL 99 98-107 mmol/L CO2 33 22.0-30.0 mmol/L GAP 10.4 5-15 mEq/L BUN 19 9-20 mg/dl CREATT 1.00 0.66-1.25 mg/dl GFRAA 90 >60 ML/MIN EGFR 74 >60 ml/min GLU 224 74-100 mg/dl CA 10.2 8.4-10.2 mg/dl BILIT 0.5 0.2-1.3 mg/dl AST 30 17-59 U/L ALT 26 12-78 U/L TP 6.7 6.3-8.2 g/dl ALB 4.4 3.5-5.0 g/dl GLOB 2.3 1.3-3.2 g/dL AGRATIO 1.9 1.1-1.8 ALP 127 38-126 U/L H-Glycohemoglobin A1C Reviewed date:09/24/2024 08:52:57 AM Interpretation:7.6 Performing Lab: Notes/Report: HGBA1C 7.6 4.0-6.0 % < 6% Non-Diabetic Level < 7% Controlled Diabetic Level > 8% Poorly Controlled Diabetic Level H-T4 free Reviewed date:09/24/2024 08:52:57 AM Interpretation:0.7 Performing Lab: Notes/Report: T4F 0.70 0.78-2.19 ng/dl X ray : Spine, lumbosacral Reviewed date:09/24/2024 08:52:56 AM Interpretation:multilevel DDD Performing Lab: Notes/Report: multilevel DDD Urinalysis - Inhouse Reviewed date:12/11/2024 02:57:01 PM Interpretation: Performing Lab: Notes/Report: Color/Clarity yellow Leuk neg Nitrite neg Urobili 3.2 Protein neg pH 6.0 Blood neg Sp. Gr. 1.020 Ketone trace Bili neg Gluc neg MRI : Spine, Lumbosacral, wi thout contrast Reviewed date:10/10/2024 05:02:55 PM Interpretation:severe degenerative changes resulting in significant stenosis and narrowing Performing Lab: Notes/Report: severe degenerative changes resulting in significant stenosis and narrowing Reason For Referral Diagnosis 1 Radiculopathy, lumba r region (M54.16) Diagnosis 2 Spinal stenosis, lum bar region without neurogenic claudication (M48.061) Diagnosis 3 Neuroforaminal steno sis of lumbar spine (M48.061) Referral Organization [facility] Referring Provider First Name Nadir Shahid Referring Provider Last Name Naima Referring Provider Speciality [facility] jaswinder Referred Provider Specialty Neurological Surgery General Notes Leona Antony 10/14/19 25 1:19:52 PM > submitted via [facility] website Referral Priority Routine Medications Medication SIG (Take, Route, Frequency, Duration) Notes Start Date End Date Status Tnoya Allergy 180 MG 1 tab(s) orally o nce a day Active Levothyroxine Sodium 88 MCG 1 tablet in the morning on an empty stomach Orally Once a day 09/24/2024 Active Lantus SoloStar 100 UNIT/ML 75 units subcutaneously Active hydroCHLOROthiazide 12.5 MG TAKE 1 TABLE T BY MOUTH ONCE DAILY for 90 Active DIABETIC INSOLES DIRECTED 04/01/2013 Active Ramipril 10 MG TAKE 1 CAPSULE BY [facility] ONCE DAILY for 30 Active ORTHOTICS DIRECTED 04/01/2013 Active Metaxalone 800 MG 1 tablet Orally Thre e times a day for 30 days Active TRUE-TRAK TEST STRIPS TRUE-TRAK DIRECTED ONCE A DAY OR DIRECTED 01/25/2012 Active Ezetimibe 10 MG 1 tablet Orally Once a day for 90 days Active Lancets DIRECTED ONCE A D AY OR DIRECTED Active Meloxicam 15 MG 1 tablet Orally Once a day Active Aspirin 81 MG 1 tab(s) orally once a day for 30 day(s) Active BD Pen Needle Short U/F 31 GUAGE X 5/16 INCH 1 Q DAY Active Medrol 4 MG as directed Orally 01/07/2025 Active HumaLOG 100 UNIT/ML 30 units in the am, 40 units at lunch, 40 units at dinner subcutaneously tid Active HYDROcodone-Acetaminophen 5-325 MG 1 tab(s) orally daily, prn Active Immunizations Vaccine Route Administration Date Status Comme nts COVID 19 Hubert Unknown 10/06/2020 Administered PNEUMOVAX 23 VACCINE IM Intramuscular 10/03/2017 Administe red PNEUMOVAX 23 VACCINE IM Intramuscular 09/05/2023 Administe red Prevnar (PCV13) IM Intramuscular 10/12/2021 Administered Prevnar (PCV20) IM Intramuscular 09/19/2024 Administered Shingrix IM Intramuscular 02/26/2019 Administered Tetanus Tdap-Adacel (over 7yrs) IM Intramuscular 10/03/2017 Administered Problems Problem Type SNOMED Code ICD Code Onset Dates Problem Status W/U Status Risk Notes Problem Diabetic neuropathy (983224429) NEUROPATHY IN DIABETES (357.2) Active confirmed Problem Diabetic foot ulcer (046481670) Diabetic foot ulcer (E11.621) Active confirmed Problem 91629371 Vitamin D deficiency (E55.9) Active confirmed Problem Essential hypertension (00678210) Essential hypertension (I10) Active confirmed Problem Otitis externa (2430530) Otitis externa (H60.90) Active confirmed Problem Arthritis (4730712) Arthritis (M19.90) Active confirmed Problem Hyperglycemia due to type 2 diabetes mellitus (472750333309216) Type 2 diabetes mellitus with hyperglycemia (E11.65) Active confirmed Problem 270223711 Type 2 diabetes mellitus with foot ulcer (E11.621) Active confirmed Problem Mixed hyperlipidemia (190812834) Mixed hyperlipidemia (E78.2) Active confirmed Problem 028286554 Non-pressure chronic ulcer of right heel and midfoot with unspecified severity (L97.419) Active confirmed Problem 151377055 Radiculopathy, lumbar region (M54.16) Active confirmed Problem 000004681 Irregular heart beat (I49.9) Active confirmed Problem 74953117 Other chronic pain (G89.29) Active confirmed Problem Neuropathy due to type 2 diabetes mellitus (761687761331785) Diabetic neuropathy associated with type 2 diabetes mellitus (E11.40) Active confirmed Problem Acquired hypothyroidism (121936901) Acquired hypothyroidism (E03.9) Active confirmed Problem 601522261 Chronic GERD (K21.9) Active confirmed Problem 504488552 BMI 36.0-36.9,adult (Z68.36) Active confirmed Problem Obstructive sleep apnea syndrome (21636164) Severe obstructive sleep apnea (G47.33) Active confirmed Problem Obese class II (149811453310073) BMI 37.0-37.9, adult (Z68.37) Active confirmed Problem 77340387 Spinal stenosis, lumbar region without neurogenic claudication (M48.061) Active confirmed Problem 72726652 Spinal stenosis of lumbar region, unspecified whether neurogenic claudication present (M48.061) Active confirmed Problem 248038967 Seasonal allergi c rhinitis, unspecified trigger (J30.2) Active confirmed Problem 344476531 Lumbar back pain with radiculopathy affecting lower extremity (M54.16) Active confirmed Problem 372381271 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) Active confirmed Vital Signs Heart Rate 62 /min 01/07/2025 Blood pressure diastolic 70 mm Hg 01/07/2025 Height 72 in 01/07/2025 Blood pressure systolic 160 mm Hg 01/07/2025 Weight 259.0 lbs 01/07/2025 BMI 35.12 kg/m2 01/07/2025 Encounters Encounter Location Date Provider Diagnosis [facility] [address] [place] [id number] 01/23/2024 Ángela Crowdy Lumbar back pain M54 .50 and Muscle spasm M62.838 [facility] [address] [place] [id number] 03/13/2024 Ángela Joshi Type 2 diabetes estefani itus with hyperglycemia E11.65 ; Mixed hyperlipidemia E78.2 ; Essential hypertension I10 ; Severe obstructive sleep apnea G47.33 ; Acquired hypothyroidism E03.9 ; Arthritis M19.90 ; Vitamin D deficiency E55.9 ; Seasonal allergic rhinitis, unspecified trigger J30.2 and Chronic GERD K21.9 [facility] [address] [id number] 06/19/2024 Ángela Joshi Type 2 diabetes estefani itus with hyperglycemia E11.65 ; Mixed hyperlipidemia E78.2 ; Essential hypertension I10 ; Severe obstructive sleep apnea G47.33 ; Acquired hypothyroidism E03.9 ; Arthritis M19.90 ; Vitamin D deficiency E55.9 ; Seasonal allergic rhinitis, unspecified trigger J30.2 and Chronic GERD K21.9 [facility] [address] [place] [id number] 08/27/2024 Ángela Joshi Lumbar back pain wit h radiculopathy affecting lower extremity M54.16 [facility] [address] [id number] 09/19/2024 Ángela Pachecojacquie Adult general medica l examination Z00.00 ; Lumbar back pain with radiculopathy affecting lower extremity M54.16 ; Type 2 diabetes mellitus with hyperglycemia E11.65 ; Mixed hyperlipidemia E78.2 ; Essential hypertension I10 ; Severe obstructive sleep apnea G47.33 ; Acquired hypothyroidism E03.9 ; Arthritis M19.90 ; Vitamin D deficiency E55.9 ; Seasonal allergic rhinitis, unspecified trigger J30.2 and BMI 36.0-36.9,adult Z68.36 [facility] [address] [place] [id number] 12/05/2024 Ángela Joshi Dysuria R30.0 [facility] [address] [place], [place] [id number] 01/07/2025 Ángela Joshi Lumbar back pain wit h radiculopathy [...] right M25.561 and Irregular heart beat I49.9 [facility] [address] [place], [place] [id number] 01/23/2024 Ángela Crowdy [facility] [address] [place], [place] [id number] 01/28/2024 Ángela Crowdy [facility] [address] [place], [place] [id number] 03/14/2024 Ángela Crowdy [facility] [address] [place], [place] [id number] 06/02/2024 Ángela Crowdy [facility] [address] [place], [place] [id number] 06/22/2024 Ángela Crowdy [facility] [address] [place], [place] [id number] 09/24/2024 Ángela Crowdy [facility] [address] [place], [place] [id number] 10/10/2024 Ángela Crowdy Lumbar back pain wit h radiculopathy affecting lower extremity M54.16 ; Spinal stenosis of lumbar region, unspecified whether neurogenic claudication present M48.061 and Neuroforaminal stenosis of lumbar spine M48.061 [facility] [address] [place], [place] [id number] 11/19/2024 Nadir Mcnamara Assessments Encounter Date Diagnosis (ICD Code) Assessment Notes Treatment Notes Treatment Clinical Notes Section Notes 01/23/2024 Muscle spasm (ICD-10 - M62.838) 01/23/2024 Lumbar back pain (ICD-10 - M54.50) Has diclofenac he will take at home. No lifting, pushing, or pulling for a week. 03/13/2024 Type 2 diabetes mellitus with hyperglycemia (ICD-10 - E11.65) 03/13/2024 Mixed hyperlipidemia (ICD-10 - E78.2) 06/19/2024 Type 2 diabetes mellitus with hyperglycemia (ICD-10 - E11.65) 06/19/2024 Mixed hyperlipidemia (ICD-10 - E78.2) 08/27/2024 Lumbar back pain with radiculopathy affecting lower extremity (ICD-10 - M54.16) If no improvement with medication, will get x-rays and start PT. 09/19/2024 Adult general medical examination (ICD-10 - Z00.00) Patient instructed to return to office Annually for Annual Wellness Visits to include annual screenings of Pain assessment, Functional Ability assessment, Cognitive Ability assessment, Fall Risk assessment, Depression screening and Bladder control screening. 09/19/2024 Lumbar back pain with radiculopathy affecting lower extremity (ICD-10 - M54.16) 10/10/2024 Spinal stenosis of lumbar region, unspecified whether neurogenic claudication present (ICD-10 - M48.061) 10/10/2024 Lumbar back pain with radiculopathy affecting lower extremity (ICD-10 - M54.16) 12/05/2024 Dysuria (ICD-10 - R30.0) 01/07/2025 Lumbar back pain with radiculopathy affecting lower extremity (ICD-10 - M54.16) rii 01/07/2025 Type 2 diabetes mellitus with hyperglycemia (ICD-10 - E11.65) rii 10/10/2024 Neuroforaminal stenosis of lumbar spine (ICD-10 - M48.061) 09/19/2024 Type 2 diabetes mellitus with hyperglycemia (ICD-10 - E11.65) 03/13/2024 Essential hypertension (ICD-10 - I10) 06/19/2024 Essential hypertension (ICD-10 - I10) 03/13/2024 Severe obstructive sleep apnea (ICD-10 - G47.33) 06/19/2024 Severe obstructive sleep apnea (ICD-10 - G47.33) 09/19/2024 Mixed hyperlipidemia (ICD-10 - E78.2) 01/07/2025 Mixed hyperlipidemia (ICD-10 - E78.2) rii 09/19/2024 Essential hypertension (ICD-10 - I10) 01/07/2025 Essential hypertension (ICD-10 - I10) rii 06/19/2024 Acquired hypothyroidism (ICD-10 - E03.9) 03/13/2024 Acquired hypothyroidism (ICD-10 - E03.9) 06/19/2024 Arthritis (ICD-10 - M19.90) 03/13/2024 Arthritis (ICD-10 - M19.90) 01/07/2025 Severe obstructive sleep apnea (ICD-10 - G47.33) rii 09/19/2024 Severe obstructive sleep apnea (ICD-10 - G47.33) 01/07/2025 Acquired hypothyroidism (ICD-10 - E03.9) rii 09/19/2024 Acquired hypothyroidism (ICD-10 - E03.9) 06/19/2024 Vitamin D deficiency (ICD-10 - E55.9) 03/13/2024 Vitamin D deficiency (ICD-10 - E55.9) 03/13/2024 Seasonal allergic rhinitis, unspecified trigger (ICD-10 - J30.2) 06/19/2024 Seasonal allergic rhinitis, unspecified trigger (ICD-10 - J30.2) 09/19/2024 Arthritis (ICD-10 - M19.90) 01/07/2025 Arthritis (ICD-10 - M19.90) rii 01/07/2025 Vitamin D deficiency (ICD-10 - E55.9) rii 09/19/2024 Vitamin D deficiency (ICD-10 - E55.9) 06/19/2024 Chronic GERD (ICD-10 - K21.9) 03/13/2024 Chronic GERD (ICD-10 - K21.9) Patient has been taking nexium OTC and would like to get a rx to see if insurance will cover it. 09/19/2024 Seasonal allergic rhinitis, unspecified trigger (ICD-10 - J30.2) 01/07/2025 Seasonal allergic rhinitis, unspecified trigger (ICD-10 - J30.2) rii 01/07/2025 BMI 36.0-36.9,adult (ICD-10 - Z68.36) rii 09/19/2024 BMI 36.0-36.9,adult (ICD-10 - Z68.36) 01/07/2025 Pain, joint, knee, right (ICD-10 - M25.561) rii 01/07/2025 Irregular heart beat (ICD-10 - I49.9) rii Plan Of Treatment Pending Test Test Name Order Date CXR 11/30/2020 EKG with rhythm strip 01/07/2025 Next Appt Details Provider Name:Ángela gutierres, 01/07/2025 10:00:00 AM, [address], [place], [place], [id number], Insurance Providers Payer Name Payer Address Payer Phone Subscriber Number Group Number Insured Name Patient Relationship to Insured Coverage Start Date Coverage End Date [facility] [address] [address] [place] [address] [phone] [id number] YUMIKO HEATH Self - patient is the insured Medications Administered Medication Instructions Date of Administration Dosage Notes Depo- Medrol 40 mg/ml 09/18/2005 1.5 mL Depo- Medrol 40 mg/ml 10/19/2005 1.5 mL Medical (General) History Medical History History ICD Code Allergic Rhinitis Type 2 Diabetes Hypercholestrolemia Surgical History Surgery Date(Month/Year)
--- NOTE | 2025-01-07 10:59 | ECG_ITS ---
APPROVED REPORT Exam: Resting ECG HR:56 bpm ECG Measurements Heart Rate 56 AXES DE 153 P 50 QRSd 102 QRS -10 QT 382 T -14 QTc 373 Conclusion SINUS BRADYCARDIA WITH OCCASIONAL SUPRAVENTRICULAR PREMATURE COMPLEXES NONSPECIFIC T-WAVE ABNORMALITY BORDERLINE ECG UNCONFIRMED REPORT Electronically signed by : Earnest Tillman MD 01/08/2025 08:43:40
== END 2025-01-07 23:59 | disposition home or self-care (01) ==
LOC: RT 10:46
PROVIDERS: PCP Physician Assistant; Visit Provider Physician Assistant
DX: I49.1 Atrial premature depolarization (principal); R00.1 Bradycardia, unspecified; R94.31 Abnormal electrocardiogram [ECG] [EKG]
CPT/HCPCS: 93005

== ENCOUNTER 2025-01-29 09:42 | Outpatient (CLI) | payer MEDICARE, SELFPAY ==
--- OUTSIDE RECORDS SUMMARY | 2025-01-29 09:48 | XMS_ITS | Encounter Summary ---
Author Organization [facility] Address [address] [place] [address] Care Team Providers Care Roller Staker Name Role Phone Ángela Joshi Primary Care Provider [phone] Reason for Visit * Reason Comments Med Refill Encounter Details Date Type Department Care Team (Late st Contact Info) Description 08/09/2021 Refill [facility] [address] [place] [address] Nicole Mann MD [address] [address] Social History Tobacco Use Types [...] Description 02/03/2025 10:00 AM EDT [facility] [address] [place] [address] Nicole Mann MD [address] [place] [address] 02/13/2025 8:15 AM EDT [facility] Visit [facility] [address], [address] [place] [address] Edith Maya, [address] [place] [address] documented as of this encounter Visit Diagnoses Not on filedocumented in this encounter Additional Health Concerns Assessment Noted Time A fall risk assessment has been complete d for the patient 05/17/2021 10:58 AM EDT documented as of this encounter Care Teams Roller Staker Relationship Specialty Start Date End Date Ángela Joshi PA [address] [facility] [address] [place] [address] PCP - General 12/10/20 documented as of this encounter
--- OUTSIDE RECORDS SUMMARY | 2025-01-29 09:48 | XMS_ITS | Clinical Summary ---
Author Organization [facility] Address [address] [place] [address] Care Team Providers Care Dental Appliance Mechanic Name Role Phone Ángela Joshi Primary Care Provider [phone] Allergies Active Allergy Reactions Criticality Noted [...] tablet 04/20/20 23 Active Continuous Blood Gluc Bolt Man (Promachos HoldingStyle Nadja 14 Day Trinchera) device Use TID to test glucose, Diag E11.9 1 each 1 06/18/20 23 Active ciprofloxacin -dexamethason e (CiproDEX) otic suspension 11/06/19 24 Active insulin lispro (HumaLOG KWIKPEN) 100 UNIT/ML injection penIndication s:Type 2 diabetes mellitus with other specified complication, with long-term current use of insulin ([facility]) INJECT 30 UNITS SQ BREAKFAST, 40 UNITS AT LUNCH, AND 42 UNITS AT DINNER 100 mL 3 01/15/20 24 Active cholecalcifer ol (Vitamin D-3) 50 MCG (2000 UT) capsule Take 1 capsule (2,000 Units) by mouth. Active vit A,C and P-yjyogg-ptqk rals (Ocuvite) tablet Active esomeprazole (NexIUM) [address] capsule Take 1 capsule (20 mg) by mouth daily. Do not open capsule. Active diclofenac (Voltaren) 75 MG EC tablet Take 1 tablet (75 mg) by mouth in the morning and 1 tablet (75 mg) before bedtime. Do not crush, chew, or split. 180 tablet 1 10/15/19 25 Active Lantus SoloStar 100 UNIT/ML injection penIndication s:Type 2 diabetes mellitus with other specified complication, with long-term current use of insulin ([facility]) INJECT 85 UNITS SUBCUTANEOUSLY EVERY MORNING 90 mL 1 11/04/19 25 Active pen needle, diabetic (B-D UF III MINI PEN NEEDLES) 31G X 5 MM mis USE TO INJECT INSULIN FOUR TIMES A DAY 400 each 1 11/04/19 25 Active HYDROcodone-a cetaminophen ([place]) 5-325 MG tabletIndicat ions:Chronic pain disorder TAKE 1 TABLET BY MOUTH EVERY 12 HOURS NEEDED FOR SEVERE PAIN. 60 tablet 01/17/20 25 Active Continuous Glucose Sensor (FreeStyle Nadja 14 Day Sensor) misCommunity Healthdicatio ns:Type 2 diabetes mellitus with other specified complication, with long-term current use of insulin ([facility]) CHANGE SENSOR EVERY 14 DAYS 6 each 1 01/29/20 25 Active Continuous Glucose Sensor (FreeStyle Nadja 14 Day Sensor) miscIndicatio ns:Type 2 diabetes mellitus with other specified complication, with long-term current use of insulin ([facility]) Apply new sensor every 14 day 2 each 5 08/01/19 25 2024 Discontinued HYDROcodone-a cetaminophen ([place]) 5-325 MG tabletIndicat ions:Chronic pain disorder Take 1 tablet by mouth every 12 hours as needed for severe pain. 60 tablet 12/16/19 25 2024 Discontinued Active Problems Problem Noted [...] Encounters Date Type Department Care Team Description 01/27/2025 Refill [facility] Endocrinology [address] [place] [address] Nicole Mann MD Type 2 diabetes mellitus with other specified complication, with long-term current use of insulin ([facility]) 01/15/2025 Refill [facility] Medicine Specialties [address], [address] [place] [address] Abdiaziz Rosado MD Chronic pain disorder (Primary Dx) 12/14/2024 Refill [facility] Medicine Specialties [address], [address] [place] [address] Jessica Sidhu MD Chronic pain disorder (Primary Dx) 11/13/2024 Refill [facility] Medicine Specialties [address], [address] [place] [address] Jessica Sidhu MD Chronic pain disorder (Primary Dx) 11/11/2024 10:19 AM EDT - 11/11/2024 11:59 PM EDT Hospital Encounter [facility] [address], [address] [place] [address] Spinal stenosis, lumbar region without neurogenic claudication Discharge Disposition: Home or Self Care 11/11/2024 10:19 AM EDT - 11/11/2024 11:59 PM EDT Hospital Encounter [facility] [address], [address] [place] [address] Spinal stenosis, lumbar region without neurogenic claudication Discharge Disposition: Home or Self Care 11/11/2024 9:00 AM EDT Consult [place] [facility] [address], [address] [place] [address] Adelaida Krishna MD Spinal stenosis, lumbar region without neurogenic claudication (Primary Dx); Radiculopathy, lumbar region; Spinal stenosis of lumbar region, unspecified whether neurogenic claudication present; Neuroforaminal stenosis of lumbar spine 11/11/2024 Orders Only [facility] Endocrinology [address] [place] [address] Nicole Mann MD 11/11/2024 Telephone [facility] End[facility] [address] [place] [address] Nicole Mann MD 11/11/2024 Travel 11/01/2024 [facility]ill [facility] [address] [place] [address] Nicole Mann MD Type 2 diabetes mellitus with other specified complication, with long-term current use of insulin ([facility]) from Last 3 Months Immunizations Immunization Administration [...] Description 02/03/2025 10:00 AM EDT Office Visit [facility] Endocrinology [address] [place] [phone] Nicole Mann MD [address] [place] [address] 02/13/2025 8:15 AM EDT [facility] Visit [facility] [address], [address] [place] [address] Edith Maya DO [address] [place] [address] Health Maintenance Due Date Last Done Comments [facility]-Hepatitis C Screening 1955 [facility]-Medicare Annual Wellness (AWV) 1955 [facility]-/Child/Adol SDOH Screenings 1955 Diabetes: Dental Exam 1965 [facility]- SDOH Screenings 1973 [facility]-Adult SDOH Screenings 1973 CT Colonography 2000 Colonoscopy 2000 FIT-DNA 2000 FIT 2000 FOBT 2000 Sigmoidoscopy 2000 [facility]-Colorectal Cancer Screening 2000 [facility]-RSV Vaccine: 60+ Years or (1 - Risk 60-74 years 1-dose series) 2015 [facility]-Zoster Vaccines (2 of 3) 04/23/2019 02/26/2019 [id number]-60 Vaccine (2 - Hubert risk series) 11/03/2020 10/06/2020 [facility]-Diabetes: Hemoglobin A1C 07/14/2024, 09/11/2023, 12/19/2022, Additional history exists [facility]-Influenza Vaccine (#1) 2025 [facility]-Depression Screening 10/14/2025 10/14/2024 [facility]-DTaP,Tdap,and Td [...] complication, with long-term current use of insulin ([facility]) from Last 3 Months or Most [...] gross abnormality in the long. Procedure Note Smamy White MD - 11/11/2024 CLINICAL INDICATION: back [...] [facility] Kit Lot Number [id number] [facility] Kit Expiration Date 09/2025 [facility] Blood Venous blood specimen / Unknown 01/15/2024 10:57 AM EDT us Nicole Mann MD POINT OF CARE TEST ENTER/E DIT ORDERABLES Final Result [facility] [address] [place] [address] from Last 3 Months or Most Recently Relevant to Health [place] [id number] [facility] MEDICARE Care Teams Dental Appliance Mechanic Relationship Specialty Start Date End Date Ángela Joshi PA [address] [facility] [address] [place] [address] PCP - General 12/10/20
--- OUTSIDE RECORDS SUMMARY | 2025-01-29 09:48 | XMS_ITS | Encounter Summary ---
Author Organization [facility] Address [address] [place] [address] Care Team Providers Care Inventory Worker Name Role Phone Ángela Joshi Primary Care Provider [phone] Reason for Visit * Reason Comments Med Refill Encounter Details Date Type Department Care Team (Late st Contact Info) Description 09/13/2023 Refill [facility] [address] [place] [address] Nicole Mann MD [address] [address] Type 2 diabetes mellitus with other specified complication, with long-term current use of insulin ([facility]) Social History Tobacco Use Types Packs/Day Years [...] 10:00 AM EDT Office Visit [facility] End[facility]inology [address] [place] [address] Nicole Mann MD [address] [place] [address] 02/13/2025 8:15 AM EDT Office Visit [facility] [address], [address] [place] [address] Edith Maya, DO [address] [place] [address] documented as of this encounter Visit Diagnoses Diagnosis Type 2 diabetes mellitus with other specified complication, with long-term current use of insulin ([facility]) documented in this encounter Additional Health Concerns Assessment Noted Time A fall risk assessment has been complete d for the patient 02/27/2023 11:11 AM EDT A Body Mass Index follow-up plan has been documented for the patient 09/11/2023 12:09 PM EST documented as of this encounter Care Teams Inventory Worker Relationship Specialty Start Date End Date Ángela Joshi PA [address] [place] [address] PCP - General 12/10/20 documented as of this encounter
--- OUTSIDE RECORDS SUMMARY | 2025-01-29 09:48 | XMS_ITS | Encounter Summary ---
Author Organization [facility] Address [address] [place] [address] Care Team Providers Care Sheep Shearer Name Role Phone Ángela Joshi Primary Care Provider [phone] Reason for Visit * Reason Comments Med Refill Encounter Details Date Type Department Care Team (Late st Contact Info) Description 01/15/2025 Refill [place] [facility] [address], [address] [place] [address] Abdiaziz Rosado MD [address] [place] [address] Chronic pain disorder (Primary Dx) [...] Telephone Encounter - Jason Pena, PharmD - 01/16/2025 7:38 AM EDT Refill request does not meet protocol. Sending to clinic for review. Additional info: Controlled substance. Hydrocodone/APAP documented in this encounter Plan of Treatment Upcoming Encounters Date Type Department Care Team (Late st Contact Info) Description 02/03/2025 10:00 AM EDT Office Visit [facility] Endocrinology [address] [place] [address] Nicole Mann MD [address] [place] [address] 02/13/2025 8:15 AM EDT Office Visit [facility] Medicine Specialties [address] [place] [address] Edith Maya, DO [address] [place] [address] documented as of this encounter Visit Diagnoses Diagnosis Chronic pain disorder- Primary Chronic pain syndrome documented in this encounter Additional Health Concerns Assessment Noted Time A fall risk assessment has been complete d for the patient 11/11/2024 8:52 AM EDT A Body Mass Index follow-up plan has been documented for the patient 11/17/2024 11:59 AM EDT documented as of this encounter Care Teams Sheep Shearer Relationship Specialty Start Date End Date Ángela Joshi PA [address] [facility] [address] [place] [address] PCP - General 12/10/20 documented as of this encounter
--- OUTSIDE RECORDS SUMMARY | 2025-01-29 09:48 | XMS_ITS | Encounter Summary ---
Author Organization [facility] Address [address] [place] [address] Care Team Providers Care Electrical Controls Engineer Name Role Phone Ángela Joshi Primary Care Provider [phone] Reason for Visit * Reason Comments Med Refill Encounter Details Date Type Department Care Team (Late st Contact Info) Description 01/27/20[facility] [address] [place] [address] Nicole Mann MD [address] [address] Type 2 diabetes mellitus with other specified complication, with long-term current use of insulin ([facility]) Social History Tobacco Use Types [...] encounter Miscellaneous Notes * Telephone Encounter - Calli Hagan - 01/28/2025 8:27 AM EDT Refill request does not meet protocol. Sending to clinic for review. Additional info: Medication not on med list. documented in this encounter Plan of Treatment Upcoming Encounters Date Type Department Care Team (Late st Contact Info) Description 02/03/2025 10:00 AM EDT Office Visit [facility] Endocrinology [address] [place] [address] Nicole Mann MD [address] [place] [address] 02/13/2025 8:15 AM EDT Office Visit [facility] Medicine Specialties [address] [place] [address] Edith Maya, DO [address] [place] [address] documented as of this encounter Visit Diagnoses Diagnosis Type 2 diabetes mellitus with other specified complication, with long-term current use of insulin ([facility]) documented in this encounter Additional Health Concerns Assessment Noted Time A fall risk assessment has been complete d for the patient 11/11/2024 8:52 AM EDT A Body Mass Index follow-up plan has been documented for the patient 11/17/2024 11:59 AM EDT documented as of this encounter Care Teams Electrical Controls Engineer Relationship Specialty Start Date End Date Ángela Joshi PA [address] [facility] [address] [place] [address] PCP - General 12/10/20 documented as of this encounter
--- OUTSIDE RECORDS SUMMARY | 2025-01-29 09:48 | XMS_ITS | Encounter Summary ---
Author Organization [facility] Address [address] [place] [address] Care Team Providers Care Marketing Assistant Retail Division Name Role Phone Ángela Joshi Primary Care Provider [phone] Reason for Visit * Reason Comments Med Refill Encounter Details Date Type Department Care Team (Late st Contact Info) Description 12/14/2024 Refill [facility] [address] [place] [address] Jessica Sidhu MD [address] [place] [address] Chronic pain disorder (Primary Dx) [...] Description 02/03/2025 10:00 AM EDT Office Visit [facility] Endocrinology [address] [place] [address] Nicole Mann MD [address] [place] [address] 02/13/2025 8:15 AM EDT Office Visit [facility] Medicine Specialties [address] [place] [address] Edith Maya, DO [address] [place] [address] documented as of this encounter Visit Diagnoses Diagnosis Chronic pain disorder- Primary Chronic pain syndrome documented in this encounter Additional Health Concerns Assessment Noted Time A fall risk assessment has been complete d for the patient 11/11/2024 8:52 AM EDT A Body Mass Index follow-up plan has been documented for the patient 11/17/2024 11:59 AM EDT documented as of this encounter Care Teams Marketing Assistant Retail Division Relationship Specialty Start Date End Date Ángela Joshi PA [address] [facility] [address] [place] [address] PCP - General 12/10/20 documented as of this encounter
== END 2025-01-29 23:59 | disposition home or self-care (01) ==
LOC: RT 09:42
PROVIDERS: PCP Physician Assistant; Visit Provider Physician Assistant
DX: I49.1 Atrial premature depolarization (principal); I47.19 Other supraventricular tachycardia; I49.3 Ventricular premature depolarization; I47.29 Other ventricular tachycardia; R00.1 Bradycardia, unspecified
CPT/HCPCS: 93270

== ENCOUNTER 2025-02-10 11:14 | Outpatient (CLI) | payer MEDICARE, SELFPAY ==
--- OUTSIDE RECORDS SUMMARY | 2024-12-05 06:30 | XMS_ITS ---
Author Organization [facility] Address [address] [place] [id number] Care Team Providers Care Perfusionist Name Role Phone Nadir Mcnamara Primary Care Provider [phone] Ángela Joshi Unavailable [phone] Allergies Allergen (clinical drug ingredient) Drug/Non Drug [...] 11:08:58 AM Interpretation:No growth Performing Lab: Notes/Report: Test performed by [facility], [employer] [address] [place] [address] , [address], [place] [address] Chase De La Cruz MD, Cafeteria Monitor CLIA: [id number] Specimen Source Urine - Void Culture, Urine See Below Final Report : No growth P-PSA Reviewed date:12/12/2024 11:07:51 AM Interpretation:Normal Performing Lab: Notes/Report: Test performed by [facility] [place][note 2]0 [facility] , [address], [place] [address] Chase De La Cruz MD, Cafeteria Monitor CLIA: [id number] PSA 0.26 <4.00 ng/mL Please note this [...] 1 tablet Orally Thre e times a day; Duration: 30 days Active Ezetimibe 10 MG TAKE 1 TABLET BY [facility] ONCE DAILY; Duration: 90 Active Ramipril 10 MG TAKE 1 CAPSULE BY [facility] ONCE DAILY; Duration: 30 Active Levothyroxine Sodium 88 MCG 1 tablet in the morning on an empty stomach Orally Once a day 09/24/2024 Active hydroCHLOROthiazide 12.5 MG TAKE 1 TABLE T BY MOUTH ONCE DAILY; Duration: 90 Active BD Pen Needle Short U/F [...] 81 MG 1 tab(s) orally once a day; Duration: 30 day(s) Active ORTHOTICS DIRECTED 04/01/2013 Active [...] 12/05/2024 Encounters Encounter Location Date Provider Diagnosis [facility] [address] [place] [id number] 12/05/2024 Ángela Joshi Dysuria R30.0 Assessments Encounter Date Diagnosis (ICD Code) Assessment Notes Treatment Notes Treatment Clinical Notes Section Notes 12/05/2024 Dysuria (ICD-10 - R30.0) Plan Of Treatment Next Appt Details Follow Up: via phone to repo rt test results, Reason: Progress Notes * YUMIKO HEATHOB: [birth year] (69 yo M)Acc No.[id number]:12/05/2024 Progress Notes Patient: YUMIKO SILVEIRA Provider: VIKY Oliveira :1955 A ge:69 Y S ex:Male Date:12/05/2024 Address:[facility] [place], [place] Pcp:Nadir Mcnamara Subjective: * Chief Complaints: * [...] G eneral Examination: General Appearance: N AD. C hest: n ormal shape and expansion. H eart: R SR. L ungs: c lear to auscultation. A bdomen: b owel sounds present , soft , nontender. B ack: n o CVA tenderness. Assessment: * Assessment: 1. D ysuria - R30.0 (Primary) Plan: * Treatment: Value Reference Range C ulture, Urine See Below - * S pecimen Source Urine - Void - * Ina Mendez 12/11/2024 02: 57:46 PM [...] inform pt.Rosa Black 12/11/2024 03:27:47 PM >left vmYenifer Fisher 12/12/2024 11:07:33 AM >pt informed ?LAB: Urinalysis [...] G 2211 Complex e/[place], [address] Urinalysis, no micro, [address] CBC WITH AUTO DIFF, 04668 VENIPUNCT, ROUTINE* * Follow Up: v ia phone to report test results * Images: Billing Information: * Visit Code: 41492 Office Visit, Est Pt., Level 3. * Procedure Codes: G2211 Complex e/[place]. [address] Urinalysis, no micro. 42118 CBC WITH AUTO DIFF. 57516 VENIPUNCT, ROUTINE*. * Electronic signature of VIKY Mcginnis on 02/10/2025 at 11:16 AM EDT Sign off status: Pending * Provider: VIKY Oliveira Date: 0 12/05/2024 Generated for Bertha mnuoz/Bertha/eTransmitting on: 0 02/10/2025 11:16 AM EDT History and Physical Notes * [...]
--- OUTSIDE RECORDS SUMMARY | 2025-01-07 06:00 | XMS_ITS ---
Author [facility] Address [address] [place] [id number] Care Team Providers Care High Density Finishing Operator Name Role Phone Nadir Mcnamara Primary Care Provider Ángela Joshi Unavailable [phone] Allergies Allergen (clinical drug ingredient) Drug/Non Drug Allergy documented on EMR Reaction Allergy Type Onset Date Status atorvastatin Lipitor myalgias Drug Allergy Acti ve azithromycin Zithromax Unknown Drug Allergy Acti ve metformin metFORMIN leg pain Drug Allergy Active Penicillin Unknown Drug Allergy Active Results Component Value Reference Range Notes EKG with rhythm strip Reviewed date:01/09/2025 01:07:49 PM Interpretation: Performing Lab: Notes/Report: REASON FOR VISIT 3 Month Check Up, Needs labs Medications Medication SIG (Take, Route, Frequency, Duration) Notes Start Date End Date Status Lantus SoloStar 100 UNIT/ML 75 units subcutaneously Active DIABETIC INSOLES DIRECTED 04/01/2013 Active Ezetimibe 10 MG 1 tablet Orally Once a day; Duration: 90 days Active Meloxicam 15 MG 1 tablet Orally Once a day Active Medrol 4 MG as directed Orally 01/07/2025 Active Tonya Allergy 180 MG 1 tab(s) orally o nce a day Active Levothyroxine Sodium 88 MCG 1 tablet in the morning on an empty stomach Orally Once a day 09/24/2024 Active hydroCHLOROthiazide 12.5 MG TAKE 1 TABLE T BY MOUTH ONCE DAILY; Duration: 90 Active Ramipril 10 MG TAKE 1 CAPSULE BY [facility] ONCE DAILY; Duration: 30 Active Metaxalone 800 MG 1 tablet Orally Thre e times a day; Duration: 30 days Active Lancets DIRECTED ONCE A D AY OR DIRECTED Active Aspirin 81 MG 1 tab(s) orally once a day; Duration: 30 day(s) Active BD Pen Needle Short U/F 31 GUAGE X 5/16 INCH 1 Q DAY Active HumaLOG 100 UNIT/ML 30 units in the am, 40 units at lunch, 40 units at dinner subcutaneously tid Active HYDROcodone-Acetaminophen 5-325 MG 1 tab(s) orally daily, prn Active ORTHOTICS DIRECTED 04/01/2013 Active TRUE-TRAK TEST STRIPS TRUE-TRAK DIRECTED ONCE A DAY OR DIRECTED 01/25/2012 Active Problems Problem Type SNOMED Code ICD Code Onset Dates Problem Status W/U Status Risk Notes Problem Irregular heart beat (063316124) Irregular heart beat (I49.9) Active confirmed Vital Signs Blood pressure systolic 160 mm Hg 01/08/20 25 Blood pressure diastolic 70 mm Hg 025 Heart Rate 62 /min 01/07/2025 Height 72 in 01/07/2025 Weight 259.0 lbs 01/07/2025 BMI 35.12 kg/m2 01/07/2025 Encounters Encounter Location Date [facility] [address] [facility] [address] [facility] [address] [place], [place] [id number] 01/07/2025 Ángelaclaudia Joshi Lumbar back pain wit h radiculopathy affecting lower extremity M54.16 ; Type 2 diabetes mellitus with hyperglycemia E11.65 ; Mixed hyperlipidemia E78.2 ; Essential hypertension I10 ; Severe obstructive sleep apnea G47.33 ; Acquired hypothyroidism E03.9 ; Arthritis M19.90 ; Vitamin D deficiency E55.9 ; Seasonal allergic rhinitis, unspecified trigger J30.2 ; BMI 36.0-36.9,adult Z68.36 ; Pain, joint, knee, right M25.561 and Irregular heart beat I49.9 Assessments Encounter Date Diagnosis (ICD Code) Assessment Notes Treatment Notes Treatment Clinical Notes Section Notes 01/07/2025 Lumbar back pain with radiculopathy affecting lower extremity (ICD-10 - M54.16) rii 01/07/2025 Type 2 diabetes mellitus with hyperglycemia (ICD-10 - E11.65) He will come back for fasting labs : CBC, CMP, Lipid, A1C, TSH, Free T4 rii 01/07/2025 Mixed hyperlipidemia (ICD-10 - E78.2) rii 01/07/2025 Essential hypertension (ICD-10 - I10) rii 01/07/2025 Severe obstructive sleep apnea (ICD-10 - G47.33) rii 01/07/2025 Acquired hypothyroidism (ICD-10 - E03.9) rii 01/07/2025 Arthritis (ICD-10 - M19.90) rii 01/07/2025 Vitamin D deficiency (ICD-10 - E55.9) rii 01/07/2025 Seasonal allergic rhinitis, unspecified trigger (ICD-10 - J30.2) rii 01/07/2025 BMI 36.0-36.9,adult (ICD-10 - Z68.36) rii 01/07/2025 Pain, joint, knee, right (ICD-10 - M25.561) Patient has f/u with his ortho but would like an oral steroid as the appt is not for another month. rii 01/07/2025 Irregular heart beat (ICD-10 - I49.9) rii Plan Of Treatment Medication Medication Name Sig Start Date Stop Date Notes Medrol 4 MG as directed Orally 01/07/2025 Treatment Notes Assessment Notes Type 2 diabetes mellitus with hyperglyce nichol He will come back for fasting labs : CBC, CMP, Lipid, A1C, TSH, Free T4 Pain, joint, knee, right Patient has f/u with his ortho but would like an oral steroid as the appt is not for another month. Next Appt Details Follow Up: via phone to repo rt test results, Reason: Progress Notes * YUMIKO HEATHOB: [birth year] (69 yo M)Acc No.[id number]:01/07/2025 Progress Notes Patient: YUMIKO SILVEIRA Provider: VIKY Oliveira :1955 A ge:69 Y S ex:Male Date:01/07/2025 Address:[facility] [place], [place] Pcp:Nadir Mcnamara Subjective: * Chief Complaints: * 1 . 3 Month Check Up. 2. Needs labs. * HPI: E ndocrinology: The pt is here for a check up on Diabetes. Pt states he does check his glucose with the free style Nadja. Pt states he has a torn ACL in the right leg. Pt states he is not fasting. * ROS: D ERMATOLOGY: no R oniel. n o H paxton. G ASTROENTEROLOGY: no N ausea. n o V omiting. n o D iarrhea.? U ROLOGY: no D ifficulty urinating. n o B lood in urine. * Medical History: A llergic Rhinitis, Type 2 Diabetes, Hypercholestrolemia. * Family History: F ather: alive. M [...] tab(s) orally once a day , Taking Levothyroxine Sodium 88 MCG Tablet 1 tablet in the morning on an empty stomach Orally Once a day , Taking hydroCHLOROthiazide 12.5 MG Tablet TAKE 1 TABLET BY MOUTH ONCE DAILY , Taking Ramipril 10 MG Capsule TAKE 1 CAPSULE BY MOUTH ONCE DAILY , Taking Metaxalone 800 MG Tablet 1 tablet Orally Three times a day , Taking Ezetimibe 10 MG Tablet 1 tablet Orally Once a day , Taking Meloxicam 15 MG Tablet 1 tablet Orally Once a day , Medication List reviewed and reconciled with the patient * Allergies: P enicillin, Zithromax, metFORMIN: leg pain, Lipitor: myalgias. Objective: * Vitals: W t: 259.0, Temp: 98.3, BP: 160/70, HR: 62, Nurse: HERB, Ht: 72, Repeat BP: 130/68, BMI:35.12. * Examination: G eneral Examination: General Appearance: N AD. H EENT: u nremarkable.?Oral cavity: n o lesions, mucosa moist and WNL, no erythema. N maureen: s upple, no lymphadenopathy. C hest: n ormal shape and expansion. H eart: R SR with frequent ectopics. L ungs: c lear to auscultation. A bdomen: bowel sounds present, soft and nontender. N eurologic Exam: I ntact, gait normal. S kin: n ormal, no rash. P eripheral pulses: n ormal (2+) bilaterally. E xtremities: t race leg edema, stasis dermatitis changes. Assessment: * Assessment: 1. T ype 2 diabetes mellitus with hyperglycemia - E11.65 (Primary) 2 . L umbar back pain with radiculopathy affecting lower extremity - M54.16 3 . M ixed hyperlipidemia - E78.2 4 . E ssential hypertension - I10 5 . S evere obstructive sleep apnea - G47.33 6 . A cquired hypothyroidism - E03.9? 7. A rthritis - M19.90 8 . V itamin D deficiency - E55.9 9 . S easonal allergic rhinitis, unspecified trigger - J30.2 1 0. BMI 36.0-36.9,adult - Z68.36 1 1. P ain, joint, knee, right - M25.561 ? 1 2. I rregular heart beat - I49.9 rii Plan: * Treatment: 2. P ain, joint, knee, right Start Medrol Tablet Therapy Pack, 4 MG, as directed, Orally, 1, Refills 0. Notes: Patient has f/u with his ortho but would like an oral steroid as the appt is not for another month. 3. I rregular heart beat I maging: EKG with rhythm strip (Performed Date - 01/07/2025) * Procedure Codes: G 2211 Complex e/m visit [place] on, [address]F TOBACCO NON-USER, G8783 BP SCR PRFRM RCMDD DEFIND SCR INTVL, G8752 MOST RECENT SYSTOLIC BP < 140MM HG, G8754 MOST RECENT DIASTOLIC BP < 90MM HG * Follow Up: v ia phone to report test results * Images: Billing Information: * Visit Code: 19908 Office Visit, Est Pt., Level 4. * Procedure Codes: G2211 Complex e/m visit add on. 1036F TOBACCO NON-USER. G8783 BP SCR PRFRM RCMDD DEFIND SCR INTVL. G8752 MOST RECENT SYSTOLIC BP < 140MM HG. G8754 MOST RECENT DIASTOLIC BP < 90MM HG. * Electronic signature of VIKY Mcginnis on 02/10/2025 at 11:16 AM EDT Sign off status: Pending * Provider: VIKY Oliveira Date: 0 01/07/2025 Generated for Printi ng/Faxing/eTransmitting on: 0 02/10/2025 11:16 AM EDT History and Physical Notes * Examination Category Sub-Category Detail Notes Category Not es General Examination HEENT: unremarkable Heart: RSR with frequent ec topics Lungs: clear to auscultatio n Abdomen: bowel sounds present , soft and nontender Extremities: trace leg edema, sta sis dermatitis changes General Appearance: NAD Skin: normal, no rash Neurologic Exam: Intact, gait normal Neck: supple, no lymphaden opathy Oral cavity: no lesions, mucosa m oist and WNL, no erythema Peripheral pulses: normal (2+) bilatera lly Chest: normal shape and exp ansion
--- OUTSIDE RECORDS SUMMARY | 2025-01-08 04:45 | XMS_ITS ---
[facility] Address [address] [place] [id number] Care Team Providers Care Disabilities Services Officer Name Role Phone Nadir Mcnamara Primary Care Provider [phone] Ángela Joshi Unavailable [phone] Results Component Value Reference Range Notes CBC Venipuncture (in house) Reviewed date:01/09/2025 01:07:49 PM Interpretation:Normal Performing Lab: Notes/Report: Normal wbc 8.6 3.5 - 10 lymph 14.2% 15 - 50 mid 4.2% 2 - 15 gran 81.6% 35 - 80 rbc 4.00 3.5 - 5.5 hgb 13.3 11.5 - 16.5 hct 40.0 35 - 55 mcv 100.0 75 - 100 mch 33.3 25 - 35 mchc 33.3 31 - 38 platlet 203 100 - 400 Glycohemoglobin A1c (in hous e) Reviewed date:01/09/2025 01:07:49 PM Interpretation:7.9 Performing Lab: Notes/Report: 7.9 glycohemoglobin 7.9% 5 - 6.5 % P-Comprehensive Metabolic Pa neymar (CMP) Reviewed date:01/09/2025 01:07:49 PM Interpretation:glu 245, calc 10.8 Performing Lab: Notes/Report: Test performed by [facility] [address] [place] [address] , [address], [place] [address] Chase De La Cruz MD, Credentialing Manager CLIA: [id number] Sodium 139 135-145 mmol/L Potassium 4.8 3.5-5.3 mmol/L Chloride 100 97-108 mmol/L CO2 27 22-32 mmol/L Glucose 245 65-99 mg/dL BUN 18 8-23 mg/dL Creatinine 1.04 0.70-1.30 mg/dL Calcium 10.8 8.6-10.4 mg/dL eGFR by Creatinine 78 >59 mL/min/1.73m2 Protein 6.7 6.0-8.3 g/dL Albumin 4.4 3.5-5.3 g/dL Alkaline Phosphatase 117 40-129 IU/L ALT (SGPT) 27 <5-55 IU/L AST (SGOT) 21 <5-46 IU/L Bilirubin, Total 0.3 <0.2-1.2 mg/dL A/G Ratio 1.9 1.1-2.5 P-Lipid Panel Reviewed date:01/09/2025 01:07:49 PM Interpretation:non-hdl 133 Performing Lab: Notes/Report: Test performed by [facility], [address] , [address] , [place] [address] Chase De La Cruz MD, Credentialing Manager CLIA: [id number] Cholesterol 178 <200 mg/dL Triglycerides 94 <150 mg/dL HDL Cholesterol 45 >39 mg/dL Cholesterol / HDL Ratio 3.96 0.00-4.99 Ratio Non-HDL Cholesterol 133 <130 mg/dL LDL Cholesterol (Calculation) 114 <130 mg/dL LDL Cholesterol Levels* Less than 100 mg/dL Optimal 100 to 129 mg/dL Near Optimal/ Above Optimal 130 to 159 mg/dL Borderline High 160 to 189 mg/dL High 190 mg/dL and above Very High * Categories as recommended by the 2004 ATPIII guidelines LDL/HDL Ratio 2.5 <3.3 Ratio LDL Cholesterol Patient History Test Date: 12/12/2023 LDL Results: 99 Units: mg/dL % Change: +8% Test Date: 06/19/2024 LDL Results: 77 Units: mg/dL % Change: -22% Test Date: 01/08/2025 LDL Results: 114 Units: mg/dL % Change: +48% P-TSH reflex to FT4 Reviewed date:01/09/2025 01:07:49 PM Interpretation:Normal Performing Lab: Notes/Report: Test performed by [facility], [place] [id number] [facility] , [address], [place] [address] Chase De La Cruz MD, Credentialing Manager CLIA: [id number] TSH reflex to FT4 0.48 0.43-5.25 mU/L REASON FOR VISIT blood work Encounters Encounter Location Date Provider Diagnosis [facility] [address] [place], [place] [id number] 01/08/2025 Ángela Joshi Type 2 diabetes estefani itus with hyperglycemia E11.65 ; Mixed hyperlipidemia E78.2 ; Essential hypertension I10 and Acquired hypothyroidism E03.9 Assessments Encounter Date Diagnosis (ICD Code) Assessment Notes Treatment Notes Treatment Clinical Notes Section Notes 01/08/2025 Type 2 diabetes mellitus with hyperglycemia (ICD-10 - E11.65) 01/08/2025 Mixed hyperlipidemia (ICD-10 - E78.2) 01/08/2025 Essential hypertension (ICD-10 - I10) 01/08/2025 Acquired hypothyroidism (ICD-10 - E03.9) Plan Of Treatment No Information Progress Notes * YUMIKO HEATHOB: 9[birth year] (69 yo M)Acc No.[id number]:01/08/2025 Patient: YUMIKO SILVEIRA Provider: VIKY Oliveira :1955 A ge:69 Y S ex:Male Date:01/08/2025 Address:[facility] [place], [id number] Pcp:Nadir Mcnamara Subjective: * Chief Complaints: * 1 . Blood work. * Medical History: Objective: * Vitals: Assessment: * Assessment: 1. T ype 2 diabetes mellitus with hyperglycemia - E11.65 (Primary) 2 . M ixed hyperlipidemia - E78.2 3 . E ssential hypertension - I10 4 .?Acquired hypothyroidism - E03.9 Plan: * Treatment: Value Reference Range g lycohemoglobin 7.9% 5 - 6.5 % * Teresa Ivey 01/08/2025 08 :52:43 AM EDT > Ina Mendez 01/09/2025 01:07:32 PM EDT > See phone encounter 2.?Mixed hyperlipidemia?LAB: P-Lipid Panel (Collection Date & Time - 01/08/2025 07:50 AM)?non-hdl 133* Value Reference Range C holesterol / HDL Ratio 3.96 0.00-4.99 - Ratio * C holesterol 178 <200 - mg/dL * H DL Cholesterol 45 >39 - mg/dL * L DL Cholesterol (Calculation) 114 <130 - mg/d L * L DL/HDL Ratio 2.5 <3.3 - Ratio * N on-HDL Cholesterol 133 H <130 - mg/dL * T riglycerides 94 <150 - mg/dL * Ina Mendez 01/09/2025 01: 07:32 PM EDT > See phone encounter 3.?Essential hypertension?LAB: P-Comprehensive Metabolic Panel (CMP) (Collection Date & Time - 01/08/2025 07:50 AM)?glu 245, calc 10.8* Value Reference Range A /G Ratio 1.9 1.1-2.5 - * A lbumin 4.4 3.5-5.3 - g/dL * A lkaline Phosphatase 117 40-129 - IU/L * A LT (SGPT) 27 <5-55 - IU/L * A ST (SGOT) 21 <5-46 - IU/L * B ilirubin, Total 0.3 <0.2-1.2 - mg/dL * B UN 18 8-23 - mg/dL * C alcium 10.8 H 8.6-10.4 - mg/dL * C hloride 100 97-108 - mmol/L * C O2 27 22-32 - mmol/L * C reatinine 1.04 0.70-1.30 - mg/dL * G lucose 245 H 65-99 - mg/dL * P otassium 4.8 3.5-5.3 - mmol/L * S odium 139 135-145 - mmol/L * P rotein 6.7 6.0-8.3 - g/dL * e GFR by Creatinine 78 >59 - mL/min/1.73m2 * Ina Mendez 01/09/2025 01: 07:32 PM EDT > See phone encounter ?LAB: CBC Venipuncture (in house) (Collection Date & Time - 01/08/2025)? Normal* Value Reference Range w bc 8.6 3.5 - 10 * l ymph 14.2% 15 - 50 * m id 4.2% 2 - 15 * g ran 81.6% 35 - 80 * r bc 4.00 3.5 - 5.5 * h gb 13.3 11.5 - 16.5 * h ct 40.0 35 - 55 * m cv 100.0 75 - 100 * m ch 33.3 25 - 35 * m chc 33.3 31 - 38 * p latlet 203 100 - 400 * Teresa Ivey 01/08/2025 08 :53:25 AM EDT > Ina Mendez 01/09/2025 01:07:32 PM EDT > See phone encounter 4.?Acquired hypothyroidism?LAB: P-TSH reflex to FT4 (Collection Date & Time - 01/08/2025 07:50 AM)? Normal* Value Reference Range T SH reflex to FT4 0.48 0.43-5.25 - mU/L * Ina Mendez 01/09/2025 01: 07:32 PM EDT > See phone encounter * Procedure Codes: 8 5025 CBC WITH AUTO DIFF, 82139 VENIPUNCT, ROUTINE*, 14781 CAPILLARY BLOOD DRAW, 48776 GLYCATED HEMOGLOBIN TEST, Modifiers: QW * Images: Billing Information: * Visit Code: * Procedure Codes: 82953 CBC WITH AUTO DIFF. 08525 VENIPUNCT, ROUTINE*. 35961 CAPILLARY BLOOD DRAW. 73043 GLYCATED HEMOGLOBIN TEST. Modifiers: QW * Electronic signature of VIKY Mcginnis on 02/10/2025 at 11:16 AM EDT Sign off status: Pending * Provider: VIKY Oliveira Date: 0 01/08/2025 Generated for Bertha munoz/Bertha/eTransmitting on: 0 02/10/2025 11:16 AM EDT
--- OUTSIDE RECORDS SUMMARY | 2025-02-03 10:00 | XMS_ITS | Encounter Summary ---
Author Organization [facility] Address [address] [place] [address] Care Team Providers Care Hand Paint Mixer Name Role Phone Ángela Joshi Primary Care Provider [phone] Reason for Visit * Reason Comments Type 2 diabetes mellitus with other spec ified complication, * Consultation (Routine) - Closed Specialty Diagnoses / Procedures Referred By Norma roman Referred To Contact Diagnoses Type 2 diabetes mellitus with other specified complication, with long-term current use of insulin (CMS/HCC) Nicole Martinez MD [address] [address] Phone: tel: fax: Referral ID Status Reason Start Date Expiration Date Visits Re quested Visits Authorized [id number] Closed 10/01/2024 04/02/2026 1 1 Encounter Details Date Type Department Care Team (Late st Contact Info) Description 02/03/2025 10:00 AM EDT Office Visit [facility] Endocrinology [address] [place] [address] Nicole Martinez MD [address] [address] Type 2 diabetes mellitus with other specified complication, with long-term current use of insulin (CMS/HCC) (Primary Dx); Primary hypertension; Other hyperlipidemia Social History Tobacco Use Types Packs/Day Years Used Date Smoking Tobacco: Never Passive Smoke Exposure: Past Smokeless Tobacco: Never Alcohol Use Standard Drinks/Week Comments Yes 0 (1 standard drink = 0.6 oz pur e alcohol) rarely. PHQ-2 Answer Date Recorded Patient Health Questionnaire-2 Score 0 02/03/2025 PHQ-2A Answer Date Recorded Patient Health Questionnaire-2 Score 0 08/01/2022 Sex and Gender Information Value Date Recorded Sex Assigned at Not on file Legal Sex Male 6:07 PM EDT Gender Identity Not on file Sexual Orientation Not on file documented as of this encounter Last Filed Vital Signs Vital Sign Reading Time Taken Comments Blood Pressure 160/71 02/03/2025 9:52 AM EDT Pulse 48 02/03/2025 9:52 AM EDT Temperature - - Respiratory Rate - - Oxygen Saturation - - Inhaled Oxygen Concentration - - Weight 117 kg (257 lb 8 oz) 02/03/2025 9:52 AM E DT Height 182.9 cm (6') 02/03/2025 9:52 AM EDT Body Mass Index 34.92 02/03/2025 9:52 AM EDT documented in this encounter Functional Status * Over the past 2 weeks, how often have you been bothered by any of the following problems? Question Answer Date of Assessment Author Little interest or pleasure in doing things Not at all 02/03/2025 10:02 AM EDT Daisy Jay Feeling down, depressed, or hopeless Not at all 02/03/2025 10:02 AM EDT Daisy Jay Patient Health Questionnaire -2 Score 0 02/03/2025 10:02 AM EDT Daisy Jay documented as of this encounter Miscellaneous Notes * Addendum Note - Nicole Martinez MD - 02/03/2025 10:00 AM EDTAddended by: NICOLE MARTINEZ on: 02/03/2025 07:24 PM Modules accepted: Orders * Progress Notes - Rosa Goodman DO - 02/03/2025 10:00 AM EDT Subjective Aldo Heath is a 69 y.o. male who presents for an follow up evaluation of Diabetes Mellitis Type2. Current symptoms/problems include hyperglycemia. Diabetes A1c today 7.8%. He indicates that he has been taking 72U lantus, 35U humalog breakfast, 15U humalogat lunch, and 35U humalog at dinner due to fear of hypoglycemia. Noted that last month he took a 10day course of steroids which caused his BG to trend in the 300-400s. He has not been having the same hypoglycemic events he was having at his last visit but on occasion will have a BG in the 50s-60s. Additionally, has been receiving steroid injections for his knee OA every three months. These typically will transiently cause his blood glucose to increase for the following 7 days. Previously discussed initiation of GLP-1 agent - denies previous hx of pancreatitis, thyroid canceror other neoplasia, gastroparesis. Current treatment includes intensive insulin injection program Known diabetic complications: peripheral neuropathy Compliance at present is estimated to be good. Cardiovascular risk factors: diabetes mellitus, dyslipidemia, hypertension, male gender, and obesity (BMI >= 30 kg/m2) Is he on TREASURE inhibitor or angiotensin II receptor yesenia? Yes Is he on a StatinDid not tolerate Current exercise: {exercise types:yard work, OA of knee limits physical activity Date of Last Eye Exam: 12/2024 Date of Last Foot Exam: 10/2024 What current meter are you using?: freestyle What type of sensor do you have?: Freestyle Nadja 2 When was your last flu shot?: doesn't take inj When did you have labs last?: 11/2023 last labs from OSH 12/2024, uploaded in media tab The following portions of the chart were reviewed this encounter and updated as appropriate: Review of Systems Negative unless otherwise indicated Objective Physical Exam Vitals reviewed. Constitutional: Appearance: Normal appearance. HENT: Head: Normocephalic and atraumatic. Eyes: Conjunctiva/sclera: Conjunctivae normal. Cardiovascular: Rate and Rhythm: Normal rate. Pulmonary: Effort: Pulmonary effort is normal. No respiratory distress. Feet: Comments: Skin: General: Skin is warm and dry. Neurological: General: No focal deficit present. Mental Status: He is alert. Mental status is at baseline. Psychiatric: Mood and Affect: Mood normal. Behavior: Behavior normal. Lab Review POCT Hemoglobin A1C Date Value 01/15/2024 8.2 09/11/2023 7.7 12/19/2022 6.6 % 08/11/2021 7.2 % (A) 05/28/2020 8.2 02/20/2020 8.6 CGM data review: Dates: 01/21/25 to 02/03/25 Data: AV Time in Range: 56% Interpretation in Assessment and Plan section Assessment/Plan Diabetes Mellitis Type 2, is uncontrolled. Complicated by neuropathy and obesity Pt is on intensive insulin regimen via MDI and Pt is on intensive monitoring via nadja and is usingCGM to monitor BG 4+ times daily. Review of download shows PP hyperglycemia after breakfast and dinner, hypoglycemia or near hypoglycemia occurring in late afternoon. Rx changes: Will continue Lantus to 72U, breakfast and dinner humalog to 35U. Will decrease lunchtime humalog to 10U. Advised to take breakfast bolus 15 minutes prior to meal -Discussed GLP-1 with patient, will hold off for now but can consider in the future. Advised that if he consider knee replacement then we will need to pursue strict DM control for adequate wound healing and infection prevention If overnight hypoglycemia recurs it is likely basal related as the lows occurred more like 3-4 am and supper bolus should be gone by then. Pt is UTD on annual eye exam and fasting labs. Neuropathy- pt with LOPS and bilateral bunions as well. Following wit podiatry, now has orthotics The following Diabetes education was reviewed: []SBGM to evaluate dose needs []Insulin coverage with carbohydrate intake []Site rotation [] Exercise impact on glucose levels []Driving safety related to diabetes []Sick day management []Ketone testing []Over treatment of hypoglycemia [] Hypoglycemia management []Call-in line use []Insulin pump pros and cons []Sensor home use []Pump class offerings []Nereyda phenomena []Somogyi effect [] Alcohol related to diabetes []Benefits of written records [x]Pre-meal Bolusing [x]Daily foot care [x] Healthy diet and regular exercise []Long-term complications related to poor diabetes management [] Injection timing related to changes in activity/exercise 2) HTN - stable, cont treasure 3) HL- stable cont statin Diagnoses and all orders for this visit: Type 2 diabetes mellitus with other specified complication, with long-term current use of insulin (CMS/[facility]) - POCT glycosylated hemoglobin (Hb A1C) Other orders - Follow Up BBDC I personally spent a total of minutes on this encounter. This time includes face to face with patient, counseling and discussion and/or coordination of care. Electronically signed by: DO YONIS Kate [facility] [address] [facility], [address] [facility] [id number] Cosigned by Nicole Martinez MD at 02/03/2025 7:23 PM EDT Associated attestation - Nicole Martinez MD - 02/03/2025 7:23 PM EDT I saw and evaluated the patient with the resident/fellow. I discussed the case with the resident/fellow and agree with the findings and plan as documented. documented in this encounter Plan of Treatment Upcoming Encounters Date Type Department Care Team (Late st Contact Info) Description 02/13/2025 8:15 AM EDT Office Visit [facility] [address], [address] [place] [address] Edith Maya DO [address] [place] [address] documented as of this encounter Procedures Procedure Name Priority Date/Time Associated Diagnosis Comments POCT GLYCOSYLATED HEMOGLOBIN (HGB A1C) Routine 02/03/2025 10:14 AM EDT Type 2 diabetes mellitus with other specified complication, with long-term current use of insulin (CMS/[facility]) documented in this encounter Results * (ABNORMAL) POCT glycosylated hemoglobin (Hb A1C) (02/03/2025 10:14 AM EDT) POCT Hemoglobin A1C 7.8 <5.7% Non-Diabet ic % [employer] [facility] Kit Lot Number [id number] [facility] Kit Expiration Date 11/23 HEALTHCARE [facility] Blood Venous blood specimen / Unknown 02/03/2025 10:14 AM EDT Nicole Martinez MD POINT OF CARE TEST ENTER/E DIT ORDERABLES Final Result Performing Organization Address City/State/[facility] Co de Phone Number [facility] [address] [place] [address] documented in this encounter Visit Diagnoses Diagnosis Type 2 diabetes mellitus with other specified complication, with long-term current use of insulin ([facility])- Primary Primary hypertension Unspecified essential hypertension Other hyperlipidemia documented in this encounter Additional Health Concerns Assessment Noted Time A fall risk assessment has been complete d for the patient 02/03/2025 10:03 AM EDT A Body Mass Index follow-up plan has been documented for the patient 02/03/2025 7:23 PM EDT documented as of this encounter Care Teams Hand Paint Mixer Relationship Specialty Start Date End Date Ángela Joshi PA [address] [place] [address] [address] [place] [address] PCP - General 12/10/20 documented as of this encounter
--- NOTE | 2025-02-10 11:15 | CA_ITS ---
APPROVED REPORT EXAM: Comprehensive 2D, Doppler, and color-flow Echocardiogram Composite Assembler: LEOPOLDO Leos, RVS Ht: 6 ft 0 in Wt: 260lbs BSA: 2.38 BP: 149/77 mmHg Indications: Palpitations, Dizziness, DM Echo Enhancing Agent Comments: Poor acoustics throughout exam with limited windows. 2D Dimensions Left Atrium 3.50 cm M: 3.0 - 4.0 LA Volume 75.00 mL LA Volume Index 31.834727 mL/m2 (M/F) 16-34 M-Mode Dimensions RVDd 3.39 cm (0.9-2.6) LA Diam 4.13 cm (1.9-4.0) LVDd 5.57 cm (3.5-5.7) LVDs 3.48 cm (3.5-5.7) IVSd 1.25 cm (0.6-1.1) PWd 1.11 cm (0.6-1.1) EF (Teich) 66.90% EPSs 0.72 cm FS 37.50% EDV (Teich) 151.80 mL ESV (Teich) 50.20 mL LV Diastology E Decel Time 193 (160-240 msec) E/A Ratio 0.96 MED A' 10.00 cm/s LAT A' 10.00 cm/s Aortic Valve KYRA Index 1.02 cm2/m2 AoV Peak Adiel. 164.0 (50-130 cm/s) AO Peak GR. 10.80 mmHg AO Mean GR. 5.30 (<5 mmHg) AO VTI 32.4 (18-25 cm) KYRA (VTI) 2.50 (2.5-4.5 cm2) Mitral Valve MV A Velocity 77.0 (40-130 cm/s) E/A Ratio 0.96 Tricuspid Valve TR P. Velocity 184.00 cm/s RAP Estimate 10.00 mmHg RVSP 23.50 mmHg Left Ventricle The left ventricle is normal size. The left ventricular systolic function is normal. The left ventricular ejection fraction is within the normal range. Proximal septal thickening is present. There is normal LV segmental wall motion. Transmitral Doppler flow pattern suggests impaired LV relaxation. LVEF is 55%. Right Ventricle The right ventricle is normal size. The right ventricular systolic function is normal. Atria The left atrium is mildly dilated. Right atrium is mildly dilated. There is no Doppler evidence of interatrial shunt. Aortic Valve The aortic valve is mildly thickened. There is no aortic valvular stenosis. Trace aortic regurgitation. Mitral Valve The mitral valve is normal in structure. No evidence of mitral valve stenosis. Trace mitral regurgitation. Tricuspid Valve Tricuspid valve is grossly normal in structure and function. Trace tricuspid regurgitation. There is insufficient TR jet to estimate RVSP. Pulmonic Valve The pulmonary valve is normal in structure. Trace pulmonic regurgitation. Great Vessels The aortic root is normal in size. IVC is normal in size and collapses >50% with inspiration. Pericardium There is no pericardial effusion. Other Information Study Quality: Fair Conclusion Normal biventricular systolic function. Mild LA dilation. No significant valvular stenosis or regurgitation. Electronically signed by : Maria Antonia Bernardo MD 02/14/2025 22:55:00
--- OUTSIDE RECORDS SUMMARY | 2025-02-10 11:16 | XMS_ITS | Encounter Summary ---
Author Organization Healthcare Address [address] [place] [address] Care Team Providers Care Real Estate Firm Manager Name Role Phone Ángela Joshi Primary Care Provider [phone] Reason for Visit * Reason Comments Med Refill Encounter Details Date Type Department Care Team (Late st Contact Info) Description 08/09/2021 Refill [facility] Endocrinology [address] [place] [address] Nicole Mann MD [address] [address] Social History Tobacco Use Types [...] Description 02/13/2025 8:15 AM EDT [facility] [address] [place] [address] Edith Maya DO [address] [place] [address] documented as of this encounter Visit Diagnoses Not on filedocumented in this encounter Additional Health Concerns Assessment Noted Time A fall risk assessment has been complete d for the patient 05/17/2021 10:58 AM EDT documented as of this encounter Care Teams Real Estate Firm Manager Relationship Specialty Start Date End Date Ángela Joshi PA [address] [facility] [address] [place] [address] PCP - General 12/10/20 documented as of this encounter
--- OUTSIDE RECORDS SUMMARY | 2025-02-10 11:16 | XMS_ITS | Encounter Summary ---
Author Organization [facility] Address [address] [place] [address] Care Team Providers Care Solder Making Supervisor Name Role Phone Ángela Joshi Primary Care Provider [phone] Reason for Visit * Reason Comments Med Refill Encounter Details Date Type Department Care Team (Late st Contact Info) Description 12/14/2024 Refill [facility] [address] [place] [address] Jessica Sidhu MD [address] [place] [address] Chronic pain disorder (Primary Dx) [...] Description 02/13/2025 8:15 AM EDT Office Visit [facility] [address] [place] [address] Edith Maya, DO [address] [place] [address] documented as of this encounter [...] documented as of this encounter Care Teams Solder Making Supervisor Relationship Specialty Start Date End Date Ángela Joshi PA [address] [place] [address] PCP - General 12/10/20 documented as of this encounter
--- OUTSIDE RECORDS SUMMARY | 2025-02-10 11:16 | XMS_ITS | Encounter Summary ---
Author Organization Healthcare Address [address] [place] [address] Care Team Providers Care Mailroom Clerk Name Role Phone Ángela Joshi Primary Care Provider [phone] Reason for Visit * Reason Comments Med Refill Encounter Details Date Type Department Care Team (Late st Contact Info) Description 01/15/2025 [facility] [address] [place] [address] Abdiaziz Rosado MD [address] [place] [address] Chronic pain disorder (Primary Dx) [...] Description 02/13/2025 8:15 AM EDT Office Visit [facility] Medicine Specialties [address] [place] [address] Edith Maya, DO [address] [place] [address] documented as of this encounter [...] documented as of this encounter Care Teams Mailroom Clerk Relationship Specialty Start Date End Date Ángela Joshi PA [address] [place] [address] PCP - General 12/10/20 documented as of this encounter
--- OUTSIDE RECORDS SUMMARY | 2025-02-10 11:16 | XMS_ITS | Encounter Summary ---
Author Organization [facility] Address [address] [place] [address] Care Team Providers Care Broadcast Field Supervisor Name Role Phone Ángela Joshi Primary Care Provider [phone] Encounter Details Date Type Department Care Team (Latest Contact Info) Description 02/03/2025 Travel Social History Tobacco Use Types Packs/Day [...] on file documented as of this encounter Functional Status * Over the [...] Daisy Jay documented as of this encounter Plan of Treatment Upcoming Encounters Date Type Department Care Team (Late st Contact Info) Description 02/13/2025 8:15 AM EDT Office Visit [facility] [address] [place] [address] Edith Maya, [address] [place] [address] documented as of this encounter Visit Diagnoses Not on filedocumented in this encounter Additional Health Concerns Assessment Noted Time A fall risk assessment has been complete d for the patient 02/03/2025 10:03 AM EDT A Body Mass Index follow-up plan has been documented for the patient 02/03/2025 7:23 PM EDT documented as of this encounter Care Teams Broadcast Field Supervisor Relationship Specialty Start Date End Date Ángela Joshi PA [address] [facility] [address] [place] [address] PCP - General 12/10/20 documented as of this encounter
--- OUTSIDE RECORDS SUMMARY | 2025-02-10 11:16 | XMS_ITS | Encounter Summary ---
Author Organization Healthcare Address [address] [place] [address] Care Team Providers Care Refrigeration Engineer Name Role Phone Ángela Joshi Primary Care Provider [phone] Reason for Visit * Reason Comments Med Refill Encounter Details Date Type Department Care Team (Late st Contact Info) Description 01/27/20[facility] [address] [place] [address] Nicole Mann MD [address] [address] Type 2 diabetes mellitus with other specified complication, with long-term current use of insulin ([facility]) Social History Tobacco Use Types Packs/Day Years [...] Description 02/13/2025 8:15 AM EDT Office Visit [facility] Medicine Specialties [address] [place] [address] Edith Maya, [address] [place] [address] documented as of this encounter Visit Diagnoses Diagnosis Type 2 diabetes mellitus with other specified complication, with long-term current use of insulin ([facility]) documented in this encounter Additional Health Concerns Assessment Noted Time A fall risk assessment has been complete d for the patient 11/11/2024 8:52 AM EDT A Body Mass Index follow-up plan has been documented for the patient 11/17/2024 11:59 AM EDT documented as of this encounter Care Teams Refrigeration Engineer Relationship Specialty Start Date End Date Ángela Joshi PA [address] [place] [address] PCP - General 12/10/20 documented as of this encounter
--- OUTSIDE RECORDS SUMMARY | 2025-02-10 11:16 | XMS_ITS | Clinical Summary ---
Author Organization [facility] Address [address] [place] [address] Care Team Providers Care Motel Manager Name Role Phone Ángela Joshi Primary Care Provider [phone] Allergies Active Allergy Reactions Criticality Noted Date Comments Atorvastatin Nausea 05/20/2024 Metformin Other - please docum ent in the comment field Low 10/14/2024 Penicillin G Unknown - Patient st ates they do not know rxn details Low 10/14/2024 Penicillins Other - please docum ent in the comment field Low 01/08/2013 Passing out Medications ramipril (Altace) 10 MG capsule 021 Active hydroCHLOROth iazide (Microzide) 12.5 MG capsule 021 Active ezetimibe (Zetia) 10 MG tablet 021 Active Aspirin Buf,CaCarb-Mg Carb-MgO, 81 MG tablet 021 Active lidocaine (Lidoderm) 5 % patch if needed. 021 Active omeprazole OTC (PriLOSEC OTC) 20 MG EC tablet 013 Active levothyroxine (Synthroid, Levoxyl) 75 MCG tablet 023 Active Continuous Blood Gluc Editor Sound (Ecorithm Nadja 14 Day [place]) device Use TID to test glucose, Diag E11.9 1 each 1 023 Active ciprofloxacin -dexamethason e (CiproDEX) otic suspension 024 Active cholecalcifer ol (Vitamin D-3) 50 MCG (2000 UT) capsule Take 1 capsule (2,000 Units) by mouth. Active vit A,C and F-vlywqf-sfxy rals (Ocuvite) tablet Active esomeprazole (NexIUM) [address] capsule Take 1 capsule (20 mg) by mouth daily. Do not open capsule. Active diclofenac (Voltaren) 75 MG EC tablet Take 1 tablet (75 mg) by mouth in the morning and 1 tablet (75 mg) before bedtime. Do not crush, chew, or split. 180 tablet 1 025 Active pen needle, diabetic (B-D UF III MINI PEN NEEDLES) 31G X 5 MM misc USE TO INJECT INSULIN FOUR TIMES A DAY 400 each 1 025 Active HYDROcodone-a cetaminophen ([place]) 5-325 MG tabletIndicat ions:Chronic pain disorder TAKE 1 TABLET BY MOUTH EVERY 12 HOURS NEEDED FOR SEVERE PAIN. 60 tablet 025 Active Continuous Glucose Sensor (FreeStyle Nadja 14 Day Sensor) miscIndicatio ns:Type 2 diabetes mellitus with other specified complication, with long-term current use of insulin (CMS/[facility]) CHANGE SENSOR EVERY 14 DAYS 6 each 1 025 Active insulin lispro (HumaLOG KWIKPEN) 100 UNIT/ML injection penIndication s:Type 2 diabetes mellitus with other specified complication, with long-term current use of insulin (CMS/HCC) INJECT 30 UNITS SQ BREAKFAST, 40 UNITS AT LUNCH, AND 42 UNITS AT DINNER 100 mL 3 025 Active Lantus SoloStar 100 UNIT/ML injection penIndication s:Type 2 diabetes mellitus with other specified complication, with long-term current use of insulin (CMS/HCC) Inject 80 Units under the skin daily. 75 mL 3 025 2025 Active insulin lispro (HumaLOG KWIKPEN) 100 UNIT/ML injection penIndication s:Type 2 diabetes mellitus with other specified complication, with long-term current use of insulin (CMS/HCC) INJECT 30 UNITS SQ BREAKFAST, 40 UNITS AT LUNCH, AND 42 UNITS AT DINNER 100 mL 3 024 2024 Discontinued(R eorder) Continuous Glucose Sensor (FreeStyle Nadja 14 Day Sensor) miscIndicatio ns:Type 2 diabetes mellitus with other specified complication, with long-term current use of insulin ([facility]) Apply new sensor every 14 day 2 each 5 025 2024 Discontinued Lantus SoloStar 100 UNIT/ML injection penIndication s:Type 2 diabetes mellitus with other specified complication, with long-term current use of insulin (CMS/[facility]) INJECT 85 UNITS SUBCUTANEOUSLY EVERY MORNING 90 mL 1 025 2024 Discontinued(R eorder) HYDROcodone-a cetaminophen ([place]) 5-325 MG tabletIndicat ions:Chronic pain disorder Take 1 tablet by mouth every 12 hours as needed for severe pain. 60 tablet 025 2024 Discontinued Active Problems Problem Noted Date [...] Encounters Date Type Department Care Team Description 02/03/2025 10:00 AM EDT Office Visit [facility] [address] [address] Nicole Mann MD Type 2 diabetes mellitus with other specified complication, with long-term current use of insulin ([facility]) (Primary Dx); Primary hypertension; Other hyperlipidemia 02/03/2025 Travel 01/27/2025 Refill [facility] [address] [address] Nicole Mann MD Type 2 diabetes mellitus with other specified complication, with long-term current use of insulin (CMS/HCC) 01/15/[address] [facility] [address] [place] [address] Abdiaziz Rosado MD Chronic pain disorder (Primary Dx) 12/14/[address] [facility] [address] [place] [address] Jessica Sidhu MD Chronic pain disorder (Primary Dx) 11/13/[address] [facility] [address] [place] [address] Jessica Sidhu MD Chronic pain disorder (Primary Dx) 11/11/2024 10:19 AM EDT - 11/11/2024 11:59 PM EDT Hospital Encounter [facility] [address] [place] [address] Spinal stenosis, lumbar region without neurogenic claudication Discharge Disposition: Home or Self Care 11/11/2024 10:19 AM EDT - 11/11/2024 11:59 PM EDT Hospital Encounter [facility] [address] [place] [phone] Spinal stenosis, lumbar region without neurogenic claudication Discharge Disposition: Home or Self Care 11/11/2024 9:[address] [facility] [address] [place] [address] Adelaida Krishna MD Spinal stenosis, lumbar region without neurogenic claudication (Primary Dx); Radiculopathy, lumbar region; Spinal stenosis of lumbar region, unspecified whether neurogenic claudication present; Neuroforaminal stenosis of lumbar spine 11/11/2024 Orders Only [facility] [address] [place] [address] Nicole Mann MD 11/11/2024 Telephone [facility] [address] [place] [address] Nicole Mann MD 11/11/2024 Travel from Last 3 Months Immunizations Immunization Administration [...] Pulse 48 02/03/2025 9:52 AM EDT Temperature 36.7 C (98.1 F) 10/14/2024 8:16 AM EDT Respiratory Rate 18 10/14/2024 8:16 AM EDT Oxygen Saturation 95% 10/14/2024 8:16 AM EDT Inhaled Oxygen Concentration - - Weight 117 kg (257 lb 8 oz) 02/03/2025 9:52 AM E DT Height 182.9 cm (6') 02/03/2025 9:52 AM EDT Body Mass Index 34.92 02/03/2025 9:52 AM EDT Plan of Treatment Upcoming Encounters Date Type Department Care Team (Late st Contact Info) Description 02/13/2025 8:15 AM EDT Office Visit [facility] [address] [place] [id number] Edith MayaDO [address] [place] [phone] Health Maintenance Due Date Last Done Comments [...] [facility]-Zoster Vaccines (2 of 3) 04/23/2019 02/26/2019 [id number] Vaccine (2 - Hubert risk series) 11/03/2020 10/06/2020 [facility]-Influenza Vaccine (#1) 2025 [facility]-Diabetes: Hemoglobin A1C 05/05/202502/2025, 01/15/2024, 09/11/2023, Additional history exists [facility]-Depression Screening 02/03/2026 02/03/2025 [facility]-DTaP,Tdap,and Td Vaccines (2 - Td or Tdap) 10/04/2027 10/03/2017 [facility]-Pneumococcal Vaccine: 50+ Years Completed 09/19/2024, 09/05/2023, 10/12/2021, Additional history exists [facility]-Obesity Intervention Completed 025, 11/11/2024, 10/14/2024, Additional history exists HPV Vaccines Aged Out [...] complication, with long-term current use of insulin ([facility]) XR LUMBAR SPINE 4 VIEWS TO INCLUDE FLEXION EXTENSION Routine 11/11/2024 11:02 AM EDT Spinal stenosis, lumbar region without neurogenic claudication XR SCOLIOSIS ENTIRE SPINE 2 OR 3 VIEWS Routine 11/11/2024 11:02 AM EDT Spinal stenosis, lumbar region without neurogenic claudication from Last 3 Months Results * (ABNORMAL) POCT glycosylated hemoglobin (Hb A1C) (02/03/2025 10:14 AM EDT) POCT Hemoglobin A1C 7.8 <5.7% Non-Diabet ic % [employer] [facility] Kit Lot Number [id number] [facility] Kit Expiration Date 11/23 [facility] Blood Venous blood specimen / Unknown 02/03/2025 10:14 AM EDT Nicole Mann MD POINT OF CARE TEST ENTER/E DIT ORDERABLES Final Result Performing Organization Address City/State/[facility] Co de Phone Number [facility] [address] [place] [phone] * XR Lumbar Spine 4+ Views w [...] MD IMG XR PROCEDURE S Final Result from Last 3 Months Insurance [place]UL[place]ARNI [id number] [facility] MEDICARE Care Teams Motel Manager Relationship Specialty Start Date End Date Ángela Joshi PA [address] [place] [id number] PCP - General 12/10/20
--- OUTSIDE RECORDS SUMMARY | 2025-02-10 11:17 | XMS_ITS | Patient Health Record ---
Author Organization [facility] Address [address] [place] [id number] Care Team Providers Care Administrative Specialist Name Role Phone Nadir Mcnamara Primary Care Provider [phone] JuniorÁngela dhillon Unavailable [phone] Allergies Allergen (clinical drug ingredient) Drug/Non Drug [...] growth Performing Lab: Notes/Report: Test performed by [facility], [facility] [address] [place] [address] , [place] [address] Chase De La Cruz MD, [employer] CLIA: [id number] Specimen Source Urine - Void Culture, Urine See Below Final Report : No growth P-PSA Reviewed date:12/12/2024 11:07:51 AM Interpretation:Normal Performing Lab: Notes/Report: Test performed by [facility] [address] [place] [address] , [address], [place] [address] Chase De La Cruz MD, [employer] CLIA: [id number] PSA 0.26 <4.00 ng/mL Please note this is an ultrasensitive PSA assay with a lower limit of detection of 0.014 ng/mL. This test is performed by the [facility] ECLIA methodology. Values obtained with different assay methods or kits cannot be directly compared. EKG with rhythm strip Reviewed date:01/09/2025 01:07:49 PM Interpretation: Performing Lab: Notes/Report: CBC Venipuncture (in house) Reviewed date:01/09/2025 01:07:49 [...] 10.8 Performing Lab: Notes/Report: Test performed by [facility] [address] [place] [address] [address], [place] [id number] Chase De La Cruz MD, [employer] CLIA: [id number] Sodium 139 135-145 mmol/L Potassium 4.8 3.5-5.3 [...] 133 Performing Lab: Notes/Report: Test performed by [facility] [address] [place] [address] , [place] [address] Chase De La Cruz MD, [employer] CLIA: [id number] Cholesterol 178 <200 mg/dL Triglycerides 94 <150 [...] Interpretation:Normal Performing Lab: Notes/Report: Test performed by [facility] [address] [place] [address] , [address], [place] [address] Chase De La Cruz MD, [employer] CLIA: [id number] TSH reflex to FT4 0.48 0.43-5.25 mU/L X ray : Spine, lumbosacral Reviewed date:09/24/2024 08:52:56 AM Interpretation:multilevel DDD Performing Lab: Notes/Report: multilevel DDD H-T4 free Reviewed date:09/24/2024 08:52:57 AM Interpretation:0.7 Performing Lab: Notes/Report: T4F 0.70 0.78-2.19 ng/dl H-Glycohemoglobin A1C Reviewed date:09/24/2024 08:52:57 AM Interpretation:7.6 Performing Lab: Notes/Report: HGBA1C 7.6 4.0-6.0 % < 6% Non-Diabetic Level < 7% Controlled Diabetic Level > 8% Poorly Controlled Diabetic Level H-CMP Reviewed date:09/24/2024 08:52:57 AM Interpretation:co2- 33, [...] AGRATIO 1.9 1.1-1.8 ALP 127 38-126 U/L H-Lipid Panel Reviewed date:09/24/2024 08:52:57 AM Interpretation:trigs 168, dldl 91, hdl 37, chol/hdl 4.2 Performing Lab: Notes/Report: Patient Fasting? Y TRIG 168 30-150 mg/dl CHOL 156 140-200 mg/dl DLDL 90.86 100-129 mg/dL VLDL 34 0-40 mg/dL HDL 37 40-60 mg/dl CHLHDL 4.2 1-3.5 H-VITAMIN D Reviewed date:09/24/2024 08:52:56 AM Interpretation:44 Performing Lab: Notes/Report: TVITD 44.0 30-100 ng/mL Deficient <20 ng/mL Insufficient 20-30 ng/mL Sufficient 30-100 ng/mL Potential Toxicity >100 ng/mL H-CBC Reviewed date:09/24/2024 08:52:56 AM Interpretation:rbc 4.04, [...] 0.2 0.0-0.4 K/mm3 BA# 0.0 0-0.2 K/mm3 H-TSH Reviewed date:09/24/2024 08:52:56 AM Interpretation:Normal Performing Lab: Notes/Report: TSH 1.24 0.465-4.68 uIU/mL P-TSH Reviewed date:03/14/2024 09:24:20 AM Interpretation: Normal Performing Lab: Notes/Report: Test performed by [facility] [address] [place] [address] , [place] [address] Chase De La Cruz MD, [employer] CLIA: [id number] TSH 0.72 0.43-5.25 mU/L P-T4 Free (thyroxine) Reviewed date:03/14/2024 09:24:11 AM Interpretation: Normal Performing Lab: Notes/Report: Test performed by [facility] [address] [place] [address] , [place] [address] Chase De La Cruz MD, [employer] CLIA: [id number] Thyroxine Free (free T4) 1.17 0.86-1.76 ng/dL Glycohemoglobin A1c (in hous e) Reviewed date:03/14/2024 11:27:21 AM Interpretation:7.8 Performing Lab: Notes/Report: 7.8 glycohemoglobin 7.8% 5 - 6.5 % MRI : Spine, Lumbosacral, wi thout contrast Reviewed date:10/10/2024 05:02:55 PM Interpretation:severe degenerative changes resulting in significant stenosis and narrowing Performing Lab: Notes/Report: severe degenerative changes resulting in significant stenosis and narrowing CBC Venipuncture (in house) Reviewed date:06/19/2024 12:53:47 [...] 10:50:13 PM Interpretation:gluc 187 Performing Lab: Notes/Report: Test performed by [facility], [facility] , [address], [place] [address] Chase De La Cruz MD, [employer] CLIA: [id number] Sodium 141 135-145 mmol/L Potassium 4.5 3.5-5.3 [...] Interpretation:Normal Performing Lab: Notes/Report: Test performed by [facility] [address] [place], [place] [address] , [place] [address] Chase De La Cruz MD, [employer] CLIA: [id number] Thyroxine Free (free T4) 1.29 0.86-1.76 ng/dL P-Lipid Panel Reviewed date:06/22/2024 10:50:13 PM Interpretation:hdl 33 Performing Lab: Notes/Report: Test performed by [facility] [address] [place] [address] , [address], [place] [address] Chase De La Cruz MD, [employer] CLIA: [id number] Cholesterol 134 <200 mg/dL Triglycerides 120 <150 [...] Interpretation:Normal Performing Lab: Notes/Report: Test performed by [facility] [address] [place] [address] [place] [address] Chase De La Cruz MD, [employer] CLIA: [id number] TSH 1.14 0.43-5.25 mU/L P-Vitamin D 25-Hydroxy Reviewed date:06/22/2024 10:50:13 PM Interpretation:32.9 Performing Lab: Notes/Report: Test performed by [facility] [address] [place] [address] [place] [address] Chase De La Cruz MD, [employer] CLIA: [id number] Vitamin D 25-Hydroxy 32.9 30.0-100.0 ng/mL Interpretation of Vitamin D 25 [place]: < 20 ng/mL - Deficiency 20 - 29 ng/mL - Insufficiency 30 - 100 ng/mL - Sufficiency > 100 ng/mL - Super-therapeutic- toxicity may occur above this level. Clinical correlation required. Reason For Referral Diagnosis 1 Radiculopathy, lumba r region (M54.16) Diagnosis 2 Spinal stenosis, lum bar region without neurogenic claudication (M48.061) Diagnosis 3 Neuroforaminal steno sis of lumbar spine (M48.061) [facility] Referring Provider First Name Nadir Shahid Referring Provider Last Name Naima Referring Provider [facility] ctice Referred Provider Specialty Neurological Surgery General Notes Leona Antony 10/14/19 1:19:52 PM > submitted via [email or web address] website Referral Priority Routine Diagnosis 1 Sinus bradycardia (R 00.1) [facility] Referring Provider First Name Nadir Shahid Referring Provider Last Name Naima Referring Provider [facility] Referred Provider Specialty Cardiovascul ar Disease General Notes Leona Antony 2024 10:59:27 AM > faxed to [facility] Cardiology Referral Priority Routine Medications Medication SIG (Take, Route, Frequency, Duration) Notes Start Date End Date Status Tonya Allergy 180 MG 1 tab(s) orally o nce a day Active Lantus SoloStar 100 UNIT/ML 75 units subcutaneously Active DIABETIC INSOLES DIRECTED 04/01/2013 Active Levothyroxine Sodium 88 MCG TAKE 1 TABLE T BY MOUTH EVERY MORNING ON AN EMPTY STOMACH; Duration: 90 Active Ramipril 10 MG 1 capsule Orally Onc e a day; Duration: 30 days Active ORTHOTICS DIRECTED 04/01/2013 Active Metaxalone 800 MG 1 tablet Orally Thre e times a day; Duration: 30 days Active hydroCHLOROthiazide 12.5 MG 1 tablet in the morning Orally Once a day; Duration: 90 days Active TRUE-TRAK TEST STRIPS TRUE-TRAK DIRECTED ONCE A DAY OR DIRECTED 01/25/2012 Active Ezetimibe 10 MG 1 tablet Orally Once a day; Duration: 90 days Active Lancets DIRECTED ONCE A [...] W/U Status Risk Notes Problem Diabetic neuropathy (256247512) NEUROPATHY IN DIABETES (357.2) Active confirmed Problem Diabetic foot ulcer (302890131) Diabetic foot ulcer (E11.621) Active confirmed Problem Vitamin D deficiency (88099166) Vitamin D deficiency (E55.9) Active confirmed Problem Essential hypertension (88045513) Essential hypertension (I10) Active confirmed Problem Otitis externa (2497456) Otitis externa (H60.90) Active confirmed Problem Arthritis (9847486) Arthritis (M19.90) Active confirmed Problem Hyperglycemia due to type 2 diabetes mellitus (150307628487447) Type 2 diabetes mellitus with hyperglycemia (E11.65) Active confirmed Problem Foot ulcer due to type 2 diabetes mellitus (0260304065282) Type 2 diabetes mellitus with foot ulcer (E11.621) Active confirmed Problem Mixed hyperlipidemia (561835166) Mixed hyperlipidemia (E78.2) Active confirmed Problem Ulcer of right foot (disorder) (866780617) Non-pressure chronic ulcer of right heel and midfoot with unspecified severity (L97.419) Active confirmed Problem Lumbar radiculopathy (291593299) Radiculopathy, lumbar region (M54.16) Active confirmed Problem Irregular heart beat (289772844) Irregular heart beat (I49.9) Active confirmed Problem Chronic pain (66380024) Other chronic pain (G89.29) Active confirmed Problem Neuropathy due to type 2 diabetes mellitus (235179016362180) Diabetic neuropathy associated with type 2 diabetes mellitus (E11.40) Active confirmed Problem Acquired hypothyroidism (563576652) Acquired hypothyroidism (E03.9) Active confirmed Problem Gastroesophageal reflux disease (disorder) (452132551) Chronic GERD (K21.9) Active confirmed Problem Obese class II (771537102981622) BMI 36.0-36.9,adult (Z68.36) Active confirmed Problem Obstructive sleep apnea syndrome (81560086) Severe obstructive sleep apnea (G47.33) Active confirmed Problem Obese class II (237918373516696) BMI 37.0-37.9, adult (Z68.37) Active confirmed Problem Spinal stenosis of lumbar region (49432349) Spinal stenosis, lumbar region without neurogenic claudication (M48.061) Active confirmed Problem Spinal stenosis of lumbar region (32951447) Spinal stenosis of lumbar region, unspecified whether neurogenic claudication present (M48.061) Active confirmed Problem Seasonal allergic rhinitis (757090712) Seasonal allergic rhinitis, unspecified trigger (J30.2) Active confirmed Problem Lumbar radiculopathy (862885727) Lumbar back pain with radiculopathy affecting lower extremity (M54.16) Active confirmed Problem Acquired deformity of spine (26999478) 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) Active confirmed Vital Signs Heart Rate 62 /min 01/07/2025 Blood pressure diastolic 70 mm Hg 01/07/2025 Height 72 in 01/07/2025 Blood pressure systolic 160 mm Hg 01/07/2025 Weight 259.0 lbs 01/07/2025 BMI 35.12 kg/m2 01/07/2025 Encounters Encounter Location Date Provider Diagnosis [facility] [place] [address] [facility] [address] [place] [id number] 03/13/2024 Ángela Joshi Type 2 diabetes estefani itus with hyperglycemia E11.65 ; Mixed hyperlipidemia E78.2 ; Essential hypertension I10 ; Severe obstructive sleep apnea G47.33 ; Acquired hypothyroidism E03.9 ; Arthritis M19.90 ; Vitamin D deficiency E55.9 ; Seasonal allergic rhinitis, unspecified trigger J30.2 and Chronic GERD K21.9 [facility] [address] [facility] [address] [place] [id number] 06/19/2024 Ángela Joshi Type 2 diabetes estefani itus with hyperglycemia E11.65 ; Mixed hyperlipidemia E78.2 ; Essential hypertension I10 ; Severe obstructive sleep apnea G47.33 ; Acquired hypothyroidism E03.9 ; Arthritis M19.90 ; Vitamin D deficiency E55.9 ; Seasonal allergic rhinitis, unspecified trigger J30.2 and Chronic GERD K21.9 [facility] [address] [id number] 08/27/2024 Ángela Pachecojacquie Lumbar back pain wit h radiculopathy affecting lower extremity M54.16 [facility] [address] [facility] [address] [id number] 09/19/2024 Ángela Crowjacquie Adult general medica l examination Z00.00 ; Lumbar back pain with radiculopathy affecting lower extremity M54.16 ; Type 2 diabetes mellitus with hyperglycemia E11.65 ; Mixed hyperlipidemia E78.2 ; Essential hypertension I10 ; Severe obstructive sleep apnea G47.33 ; Acquired hypothyroidism E03.9 ; Arthritis M19.90 ; Vitamin D deficiency E55.9 ; Seasonal allergic rhinitis, unspecified trigger J30.2 and BMI 36.0-36.9,adult Z68.36 [facility] [address] [id number] 12/05/2024 Ángela Pachecojacquie Dysuria R30.0 [facility] [address] [id number] 01/07/2025 Ángela Pachecojacquie Lumbar back pain wit h radiculopathy affecting [...] right M25.561 and Irregular heart beat I49.9 [facility] [address] [id number] 01/08/2025 Ángela Pachecojacquie Type 2 diabetes estefani itus with hyperglycemia E11.65 ; Mixed hyperlipidemia E78.2 ; Essential hypertension I10 and Acquired hypothyroidism E03.9 [facility] [address] [place], [place] [id number] 03/14/2024 Ángela Joshi [facility] [address] [place], [place] [id number] 06/02/2024 Ángela [facility] [address] [place], [place] [id number] 06/22/2024 Ángelaclaudia [facility] [address] [place], [place] [id number] 09/24/2024 Ángelaclaudia [facility] [address] [place], [place] [id number] 10/10/2024 Ángelaclaudia Joshi Lumbar back pain wit h radiculopathy affecting lower extremity M54.16 ; Spinal stenosis of lumbar region, unspecified whether neurogenic claudication present M48.061 and Neuroforaminal stenosis of lumbar spine M48.061 [facility] [address] [place], [place] [id number] 11/19/2024 Nadir Mcnamara [facility] [address] [place], [place] [id number] 01/09/2025 Ángela Joshi [facility] [address] [facility] [address] [place], [place] [id number] 01/15/2025 Nadir Mcnamara Assessments Encounter Date Diagnosis (ICD Code) Assessment Notes Treatment Notes Treatment Clinical Notes Section Notes 03/13/2024 Type 2 diabetes mellitus with hyperglycemia [...] M54.16) 12/05/2024 Dysuria (ICD-10 - R30.0) 01/07/2025 Type 2 diabetes mellitus with hyperglycemia (ICD-10 - E11.65) He will come back for fasting labs : CBC, CMP, Lipid, A1C, TSH, Free T4 rii 01/07/2025 Lumbar back pain with radiculopathy affecting lower extremity (ICD-10 - M54.16) rii 01/08/2025 Type 2 diabetes mellitus with hyperglycemia (ICD-10 - E11.65) 01/08/2025 Mixed hyperlipidemia (ICD-10 - E78.2) 01/07/2025 Mixed hyperlipidemia (ICD-10 - E78.2) rii 10/10/2024 Neuroforaminal stenosis of lumbar spine (ICD-10 - M48.061) 09/19/2024 Type 2 diabetes mellitus with hyperglycemia (ICD-10 - E11.65) 03/13/2024 Essential hypertension (ICD-10 - I10) 06/19/2024 Essential hypertension (ICD-10 - I10) 03/13/2024 Severe obstructive sleep apnea (ICD-10 - G47.33) 06/19/2024 Severe obstructive sleep apnea (ICD-10 - G47.33) 09/19/2024 Mixed hyperlipidemia (ICD-10 - E78.2) 01/07/2025 Essential hypertension (ICD-10 - I10) rii 01/08/2025 Essential hypertension (ICD-10 - I10) 01/08/2025 Acquired hypothyroidism (ICD-10 - E03.9) 01/07/2025 Severe obstructive sleep apnea (ICD-10 - G47.33) rii 09/19/2024 Essential hypertension (ICD-10 - I10) 06/19/2024 Acquired hypothyroidism (ICD-10 - E03.9) 03/13/2024 Acquired hypothyroidism (ICD-10 - E03.9) 06/19/2024 Arthritis (ICD-10 - M19.90) 03/13/2024 Arthritis (ICD-10 - M19.90) 01/07/2025 Acquired hypothyroidism (ICD-10 - E03.9) rii 09/19/2024 Severe obstructive sleep apnea (ICD-10 - G47.33) 09/19/2024 Acquired hypothyroidism (ICD-10 - E03.9) 01/07/2025 Arthritis (ICD-10 - M19.90) rii 06/19/2024 Vitamin D deficiency (ICD-10 - E55.9) 03/13/2024 Vitamin D deficiency (ICD-10 - E55.9) 03/13/2024 Seasonal allergic rhinitis, unspecified trigger (ICD-10 - J30.2) 06/19/2024 Seasonal allergic rhinitis, unspecified trigger (ICD-10 - J30.2) 01/07/2025 Vitamin D deficiency (ICD-10 - E55.9) rii 09/19/2024 Arthritis (ICD-10 - M19.90) 01/07/2025 Seasonal allergic rhinitis, unspecified trigger (ICD-10 - J30.2) rii 09/19/2024 Vitamin D deficiency (ICD-10 - E55.9) 06/19/2024 Chronic GERD (ICD-10 - K21.9) 03/13/2024 Chronic GERD (ICD-10 - K21.9) Patient has been taking nexium OTC and would like to get a rx to see if insurance will cover it. 01/07/2025 BMI 36.0-36.9,adult (ICD-10 - Z68.36) rii 09/19/2024 Seasonal allergic rhinitis, unspecified trigger (ICD-10 - J30.2) 09/19/2024 BMI 36.0-36.9,adult (ICD-10 - Z68.36) 01/07/2025 Pain, joint, knee, right (ICD-10 - M25.561) Patient has f/u with his ortho but would like an oral steroid as the appt is not for another month. rii 01/07/2025 Irregular heart beat (ICD-10 - I49.9) rii Plan Of Treatment No Information Insurance Providers Payer Name Payer Address Payer Phone Subscriber Number Group Number Insured Name Patient Relationship to Insured Coverage Start Date Coverage End Date [facility] [address] [place] [address] [id number] YUMIKO HEATH Self - patient is the insured Medications Administered Medication Instructions Date of Administration Dosage Notes Depo- Medrol 40 mg/ml 09/18/2005 1.5 mL Depo- Medrol 40 mg/ml 10/19/2005 1.5 mL Medical (General) History Medical History History ICD Code Allergic Rhinitis Type 2 Diabetes Hypercholestrolemia Surgical History Surgery Date(Month/Year)
--- OUTSIDE RECORDS SUMMARY | 2025-02-10 11:17 | XMS_ITS | Encounter Summary ---
Author Organization [facility] Address [address] [place] [address] Care Team Providers Care Forestry Support Specialist Name Role Phone Ángela Joshi Primary Care Provider [phone] Reason for Visit * Reason Comments Med Refill Encounter Details Date Type Department Care Team (Late st Contact Info) Description 09/13/2023 Refill [facility] [address] [place] [address] Nicole Mann MD [address] [address] Type 2 diabetes mellitus with other specified complication, with long-term current use of insulin ([facility]) Social History Tobacco Use Types [...] Description 02/13/2025 8:15 AM EDT Office Visit [facility] [address] [place] [address] Edith Maya DO [address] [place] [address] documented as of this encounter Visit Diagnoses Diagnosis Type 2 diabetes mellitus with other specified complication, with long-term current use of insulin ([facility]) documented in this encounter Additional Health Concerns Assessment Noted Time A fall risk assessment has been complete d for the patient 02/27/2023 11:11 AM EDT A Body Mass Index follow-up plan has been documented for the patient 09/11/2023 12:09 PM EST documented as of this encounter Care Teams Forestry Support Specialist Relationship Specialty Start Date End Date Ángela Joshi PA [facility] [facility] [address] [place] [address] PCP - General 12/10/20 documented as of this encounter
== END 2025-02-10 23:59 | disposition home or self-care (01) ==
LOC: RT 11:14
PROVIDERS: PCP Physician Assistant; Visit Provider Physician Assistant
DX: I11.9 Hypertensive heart disease without heart failure (principal); E11.9 Type 2 diabetes mellitus without complications; R00.2 Palpitations; R94.31 Abnormal electrocardiogram [ECG] [EKG]; R42 Dizziness and giddiness
CPT/HCPCS: 93306

== ENCOUNTER 2025-05-29 10:57 | Outpatient (RCR) | payer MEDICARE, SELFPAY | END 2025-05-29 23:59 | disposition home or self-care (01) | LOC: PT 10:57 | PROVIDERS: PCP Physician Assistant; Visit Provider Orthopaedic Surgery | DX: Z47.89 Encounter for other orthopedic aftercare (principal); Z96.651 Presence of right artificial knee joint | CPT/HCPCS: 97163 ==

== ENCOUNTER 2025-06-18 15:00 | Outpatient (RCR) | payer MEDICARE, SELFPAY | END 2025-06-18 23:59 | disposition home or self-care (01) | LOC: PT 15:00 | PROVIDERS: PCP Physician Assistant; Visit Provider Orthopaedic Surgery | DX: Z47.1 Aftercare following joint replacement surgery (principal); Z96.651 Presence of right artificial knee joint | CPT/HCPCS: 97014; 97016; 97110; 97140; 97530; 97535; G0283 ==

== ENCOUNTER 2025-07-28 15:00 | Outpatient (RCR) | payer MEDICARE, SELFPAY | END 2025-07-28 23:59 | disposition home or self-care (01) | LOC: PT 15:00 | PROVIDERS: PCP Physician Assistant; Visit Provider Orthopaedic Surgery | DX: Z96.651 Presence of right artificial knee joint (principal) | CPT/HCPCS: 97110; 97140; 97530 ==